=== PATIENT | female | born 1930 | race Caucasian/White ===

== ENCOUNTER 2017-02-13 12:32 | Emergency (ER) | payer OTHER ==
[~2017-02-13] VITALS: Ht 154.9 cm; Wt 87.3 kg
[~2017-02-13 12:32] MED LIST: ALLO100T PO; CHOL100010 PO; FRS/40 PO; LANS30CA41 PO; LOSA50TA54 PO; MULT-190 PO; NVLGI7030 SC; ROSU5TAB PO; SITA50TA3 PO; TPRSR50 PO; Vitamin B PO; WARF5TAB7 PO
[2017-02-13 12:49] VITALS: TEMP 36.7; Ht 154.9 cm; Wt 87.3 kg
[2017-02-13 14:09] LABS: BASO % 0.2 %; BASO ABS # 0.02 K/uL (0-0.2); COMPLETE YES; EOS % 1.3 %; HEMATOCRIT 38.5 % (37-47); IG% 0.3 %; LYMPH % 27.1 %; LYMPH ABS # 2.68 K/uL (1.2-3.4); MEAN CELL VOLUME 100.3 fL (80-100); MEAN CORPUSCULAR HEMOGLOBIN 31.8 pg (25-34); MEAN CORPUSCULAR HGB CONC 31.7 g/dl (32-36); MEAN PLATELET VOLUME 9.6 fL (7.4-10.4); MONO % 7.9 %; NEUT % 63.2 %; PLATELET COUNT 204 K/uL (130-400); RED BLOOD COUNT 3.84 M/uL (4.2-5.4); WHITE BLOOD COUNT 9.89 K/uL (4.8-10.8)
--- NOTE | 2017-02-13 14:10 | DIAGNOSTIC IMAGING REPORT ---
RIGHT TIBIA/FIBULA 2 VIEWS ROUTINE CLINICAL HISTORY: R lower leg pain and swelling Right pain. Edema. COMPARISON: None. DISCUSSION: Considerable degenerative change all major joint compartments of the right knee. Prepatellar soft tissue edema. No acute bony abnormality. Prepatellar soft tissue edema. IMPRESSION: Prepatellar soft tissue edema. Degenerative change right knee. No acute bony abnormality. The above report was generated using voice recognition software. It may contain grammatical, syntax or spelling errors. Electronically signed by: Magen Mathews M.D. 02/13/2017 2:09 PM Dictated Date/Time: 02/13/2017 2:08 PM
[2017-02-13 14:24] LABS: BUN/CREATININE RATIO 20.9 (10-20); CALCIUM 9.4 mg/dl (8.5-10.1); CREATININE 1.3 mg/dl (0.60-1.20); POTASSIUM 3.8 mmol/L (3.5-5.1); URIC ACID 4.2 mg/dl (2.6-7.2)
[2017-02-13 14:29] LABS: INR 2.5 (0.9-1.1); PARTIAL THROMBOPLASTIN RATIO 1.4; PROTHROMBIN TIME (PATIENT) 28.2 SECONDS (9.0-12.0)
[2017-02-13] MEDS ORDERED: CYAN100T PO (14:38)
[2017-02-13] MEDS ORDERED: METO1TAB66 PO (14:38)
[2017-02-13] MEDS ORDERED: CHOL1TAB53 PO (14:38)
--- NOTE | 2017-02-13 15:18 | DIAGNOSTIC IMAGING REPORT ---
RIGHT VENOUS DOPP LOWER EXT UNILAT CLINICAL HISTORY: R lower leg pain and swelling; Hx DVT Right pain. Edema. TECHNIQUE: Venous Doppler COMPARISON STUDY: 01/06/2014 FINDINGS: Linear echogenic thrombus within the right popliteal vein. This is similar compared to the prior study. It is consistent with that of chronic thrombophlebitic change. No evidence for acute deep venous thrombosis. All remaining venous structures are unremarkable. Compressibility and augmentation characteristics are unremarkable. IMPRESSION: 1. 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 2. No evidence for acute deep venous thrombosis. The above report was generated using voice recognition software. It may contain grammatical, syntax or spelling errors. Electronically signed by: Magen Mathews M.D. 02/13/2017 3:17 PM Dictated Date/Time: 02/13/2017 3:15 PM
[2017-02-13] MEDS ORDERED: LOSA1TAB PO (15:40)
[2017-02-13] MEDS ORDERED: CEPH500C2 PO (15:47)
[2017-02-13 15:59] VITALS: BP 173/88; PULSE 70; O2SAT 97
--- NOTE | 2017-02-13 18:05 | EMERGENCY ROOM VISIT NOTE ---
ED Visit Note First contact with patient: 13:27 I have personally seen and evaluated the patient with the PA. I agree with the diagnosis and management decisions and have been personally involved in the case. On evaluation, the patient is found to have a mild cellulitis of the right foot. There is chronic clot visualized on ultrasound. Patient's INR is therapeutic. She was given a prescription for Cozaar 25 mg as she is having difficulty refilling her 50 mg prescription. She was recently increased to 75 mg daily. She will follow-up with her technology assistant as well as her primary care physician for cellulitis recheck and blood pressure management. Patient will return to the ER for worsening of symptoms or any medical concerns. Please see Pedrito Harris PA-C's notes for further details of the history, physical and visit.
--- NOTE | 2017-02-13 22:58 | EMERGENCY ROOM VISIT NOTE ---
ED Visit Note First contact with patient: 13:27 Chief Complaint: Having a lot of swelling of my right lower leg and ankle. History of Present Illness: Ms. Perkins is an 86-year-old white female who ambulates into the ED accompanied by her granddaughter complaining of right lower extremity swelling, redness and pain. 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 She is on Coumadin therapy and she reports her most recent INRs have been normal. Patient reports she has noted right lower leg and foot pain for the last 4 days. This has been associated with swelling of the calf, swelling of the ankle and foot and she has noted some redness in the calf, ankle and foot. Currently she describes her pain as a deep aching sensation with throbbing. She rates her discomfort 8/10. Her pain is nonradiating. Her pain worsens with palpation and ambulation. She has not identified any alleviating factors related to the pain. She reports she has not been taken any medication for pain prior to arrival at the hospital. Additionally she reports she scratched the anterior lower leg on a piece of furniture 4 days ago. She denies any associated fevers, chills, sweats, cough, wheezing, shortness of breath, chest pain, palpitations, cramping, claudication, abdominal pain, nausea , vomiting, decreased appetite, leg weakness/numbness/tingling. Review of Systems: As noted above in history of present illness. All body systems were reviewed and found to be negative as noted above. Past Medical History: As previously noted and (1) Cardiac Murmurs Nec (2) DM type 2 (diabetes mellitus, type 2) (3) Heart murmur (4) Hiatal hernia (5) Renal insufficiency Current Medications: Medications Dose Route/Sig Max Daily Dose Days Date Category Dose Instructions Vitamin B-12 (Cyanocobalamin) 100 Mcg Tab 100 Mcg PO DAILY 02/13/17 Reported D 1000 (Cholecalciferol) 1,000 Unit Tab 4,000 Units PO DAILY 02/13/17 Reported Toprol Xl (Metoprolol Succinate) 50 Mg Tab 50 Mg PO DAILY 02/13/17 Reported Crestor (Rosuvastatin Calcium) 5 Mg Tab 5 Mg PO DAILY 06/09/15 Reported Lasix (Furosemide) 40 Mg Tab 40 Mg PO DAILY 06/09/15 Reported Jantoven (Warfarin Sodium) 5 Mg Tab 5 Mg PO DAILY 01/09/14 Rx Ocuvite Preservision (Multivitamins/Minerals) 1 Tab Tab 1 Tab PO DAILY 09/13/13 Reported Novolog Mix 70/30 (Insulin Aspart Prota 70%/Aspart 30%) Susp 40 Units SC QPM 09/13/13 Reported Novolog Mix 70/30 (Insulin Aspart Prota 70%/Aspart 30%) Susp 46 Units SC QAM 09/13/13 Reported Zyloprim (Allopurinol) 100 Mg Tab 100 Mg PO BID 09/13/13 Reported Prevacid (Lansoprazole) 30 Mg Cap 30 Mg PO DAILY 09/13/13 Reported TAKE THIS MEDICATION ONCE A DAY BEFORE EATING. Cozaar (Losartan Potassium) 50 Mg Tab 75 Mg PO DAILY 09/13/13 Reported Januvia (Sitagliptin) 50 Mg Tab 50 Mg PO DAILY 09/13/13 Reported Allergies to Medications: Hydrocodone, penicillin, vancomycin. Social History: Patient is not employed; she feels safe in her home environment ; she denies tobacco use. Physical Examination: Vital Signs: Date Time Temp Pulse Resp B/P (MAP) Pulse Ox O2 Delivery O2 Flow Rate FiO2 02/13/17 15:59 70 18 173/88 97 02/13/17 13:50 163/100 02/13/17 12:49 36.7 69 18 162/78 95 Room Air GENERAL: 86-year-old female in mild distress due to pain and symptoms, nontoxic- appearing, afebrile and hemodynamically stable. NEUROLOGICAL: Awake, alert and oriented to person, place and time. Answering questions appropriately and following commands. SKIN: Warm, dry and pink. Right Lower Leg: Patient has a superficial skin tear/ abrasion/laceration to the anterior aspect of the leg extending from just inferior to the tibial tuberosity to the lower tibia. This wound is scabbed over and does not appear infected. There are additional venous stasis changes noted over the lower leg. Within the venous stasis changes there is mild erythema at this area is not hot to palpation. Lastly there is swelling around the ankle with mild erythema just inferior to the bilateral malleoli. This area is slightly warm to palpation. There is also swelling over the top of the foot that is not erythematous or warm to palpation. None of the above listed areas does the skin appear cellulitic and nowhere through the right lower extremity door appreciate any lymphangitis. HEENT: Atraumatic and normocephalic. PERRLA. Sclera white and conjunctiva pink. No drainage from naris. Oral cavity moist and pink. Pharynx is nonerythematous or edematous. Speech normal. Trachea midline. No jugular venous distention. BACK: No tenderness over the bony spine. No CVA tenderness. THORAX: Lungs sounds are clear to auscultation and equal bilaterally with symmetrical chest wall. No wheezing, rales or rhonchi. No crepitus, tenderness , subcutaneous air or deformities noted. HEART: Regular rate and rhythm. No gallops, rubs or murmurs are appreciated. ABDOMEN: Flat, soft and nontender. Positive bowel sounds in all quadrants. No guarding, rigidity or organomegaly. RIGHT LOWER EXTREMITY: Please note skin description above under SKIN. There is no gross bony deformity. There is no shortening or malrotation of the extremity. No tenderness in the hip, thigh, knee. Moderate tenderness throughout the lower leg, ankle and foot. I do not appreciate any bony deformity or crepitus. There is no calf tenderness or cords. She has full range of motion in flexion and extension of the knee, plantar flexion and dorsiflexion of the ankle and flexion and extension of all toes. Throughout the foot the skin was warm and pink and capillary refill is brisk. Distal pulses are intact. She is able to distinguish light sensations through all dermatomes of the foot. ED Course: Patient is assessed as noted above. Patient's medication list was reviewed. Laboratory Testing: Test 02/13/17 13:50 Range/Units White Blood Count 9.89 4.8-10.8 K/uL Red Blood Count 3.84 4.2-5.4 M/uL Hemoglobin 12.2 12.0-16.0 g/dL Hematocrit 38.5 37-47 % Mean Corpuscular Volume 100.3 80-100 fL Mean Corpuscular Hemoglobin 31.8 25-34 pg Mean Corpuscular Hemoglobin Concent 31.7 32-36 g/dl Platelet Count 204 130-400 K/uL Mean Platelet Volume 9.6 7.4-10.4 fL Neutrophils (%) (Auto) 63.2 % Lymphocytes (%) (Auto) 27.1 % Monocytes (%) (Auto) 7.9 % Eosinophils (%) (Auto) 1.3 % Basophils (%) (Auto) 0.2 % Neutrophils # (Auto) 6.25 1.4-6.5 K/uL Lymphocytes # (Auto) 2.68 1.2-3.4 K/uL Monocytes # (Auto) 0.78 0.11-0.59 K/uL Eosinophils # (Auto) 0.13 0-0.5 K/uL Basophils # (Auto) 0.02 0-0.2 K/uL RDW Standard Deviation 51.0 36.4-46.3 fL RDW Coefficient of Variation 14.0 11.5-14.5 % Immature Granulocyte % (Auto) 0.3 % Immature Granulocyte # (Auto) 0.03 0.00-0.02 K/uL Prothrombin Time 28.2 9.0-12.0 SECONDS Prothromb Time International Ratio 2.5 0.9-1.1 Activated Partial Thromboplast Time 36.6 21.0-31.0 SECONDS Partial Thromboplastin Ratio 1.4 Sodium Level 139 136-145 mmol/L Potassium Level 3.8 3.5-5.1 mmol/L Chloride Level 103 98-107 mmol/L Carbon Dioxide Level 30 21-32 mmol/L Anion Gap 6.0 3-11 mmol/L Blood Urea Nitrogen 27 7-18 mg/dl Creatinine 1.30 0.60-1.20 mg/dl Est Creatinine Clear Calc Drug Dose 32.3 ml/min Estimated GFR () 43.6 Estimated GFR (Non- 37.6 BUN/Creatinine Ratio 20.9 10-20 Random Glucose 123 70-99 mg/dl Uric Acid 4.2 2.6-7.2 mg/dl Calcium Level 9.4 8.5-10.1 mg/dl Right Lower Leg X-Rays: Were read by myself and the radiologist and shows degenerative changes to all the major components of the the knee but no acute bony abnormalities. Radiologist also noted prepatellar soft tissue edema. Venous Doppler Ultrasound: Was reviewed by myself and read by the radiologist and shows chronic thrombophlebitic scarring of the right popliteal vein and no evidence of acute deep venous thrombus. An IV lock was initiated and patient was offered pain medications and refused. Patient was reassessed multiple times during her stay in the emergency department. Patient's case was reviewed with Dr. Abraham; she independently assessed the patient we agreed on diagnostic approach, treatment, disposition and plan. Patient was offered a walker and reported she had walker at home. Patient was educated about today's findings and instructed on her treatment plan ; she verbalized understanding and agreement with this plan. Clinical Impression: Mild cellulitis of the right lower leg/foot. Decision-Making: Initially my differential diagnosis I considered cellulitis, deep vein thrombus, superficial thrombophlebitis, gout and other causes. Disposition: Patient discharged home in stable condition accompanied by her grand daughter; prior to departure she was reassessed and subjectively reported she was feeling better and rated her discomfort 3/10. Plan: Patient was encouraged to continue current medication as prescribed including her changes in blood pressure medication. Patient was prescribed Keflex 500 mg 4 times a day for 7 days. Patient is encouraged to keep her feet elevated while at rest. Patient was encouraged to use 650 mg of acetaminophen every 6 hours as needed for pain. Patient was encouraged to use her walker for support during ambulation. Patient was encouraged to follow-up with the network intelligence analyst or family physician for recheck in 36-48 hours. Patient was encouraged return ED for worsening swelling, worsening redness, fevers or any new/concerning symptoms.
== END 2017-02-13 16:01 | disposition home or self-care (01) ==
LOC: C.EDB 12:34
DX: L03.115 Cellulitis of right lower limb (principal); E11.9 Type 2 diabetes mellitus without complications

== ENCOUNTER 2017-04-04 03:01 | Emergency (ER) | payer OTHER ==
[~2017-04-04] VITALS: Ht 154.9 cm; Wt 86.9 kg
[~2017-04-04 03:01] MED LIST changes: -CHOL100010 PO; +CHOL1TAB53 PO; +CYAN100T PO; +LOSA1TAB PO; +METO-452 PO; -TPRSR50 PO; -Vitamin B PO
[2017-04-04 03:06] VITALS: TEMP 37; Ht 154.9 cm; Wt 86.9 kg
[2017-04-04 03:56] LABS: BASO % 0.3 %; BASO ABS # 0.03 K/uL (0-0.2); COMPLETE YES; EOS % 2.4 %; HEMATOCRIT 37.1 % (37-47); IG% 0.2 %; LYMPH % 26.4 %; LYMPH ABS # 2.34 K/uL (1.2-3.4); MEAN CELL VOLUME 99.2 fL (80-100); MEAN CORPUSCULAR HEMOGLOBIN 32.6 pg (25-34); MEAN CORPUSCULAR HGB CONC 32.9 g/dl (32-36); MEAN PLATELET VOLUME 9.6 fL (7.4-10.4); MONO % 11.7 %; PLATELET COUNT 175 K/uL (130-400); RED BLOOD COUNT 3.74 M/uL (4.2-5.4); WHITE BLOOD COUNT 8.87 K/uL (4.8-10.8)
[2017-04-04 04:31] LABS: ALT/SGPT 23 U/L (12-78); BLOOD UREA NITROGEN 35 mg/dl (7-18); BUN/CREATININE RATIO 27.2 (10-20); CALCIUM 9.3 mg/dl (8.5-10.1); CARBON DIOXIDE 25 mmol/L (21-32); CHLORIDE 107 mmol/L (98-107); CREATININE 1.27 mg/dl (0.60-1.20); GLUCOSE 148 mg/dl (70-99); POTASSIUM 3.9 mmol/L (3.5-5.1); SODIUM 141 mmol/L (136-145)
[2017-04-04 04:34] LABS: ALKALINE PHOSPHATASE 64 U/L (45-117); AST/SGOT 24 U/L (15-37)
[2017-04-04 04:50] VITALS: BP 177/93; PULSE 78; O2SAT 95
--- NOTE | 2017-04-04 05:17 | EMERGENCY ROOM VISIT NOTE ---
History Report prepared by [place]: Kayla Montero Under the Supervision of: Dr. Sonali Dong D.O. First contact with patient: 03:15 Chief Complaint: ABDOMINAL PAIN Stated Complaint: PAIN IN STOMACH History of Present Illness The patient is an 86 year old female who presents to the Emergency Room with complaints of intermittent abdominal pain starting 0200 last night. She describes the pain as burning "like fire". It is located in her upper abdomen. Yesterday she was up from [id number] with the pain which then resolved. The pain started again this morning at around 0050. She had been sleeping for about an hour and woke with the pain. She currently does not have any pain. It improved after drinking water. She notes a history of acid reflux and is on Prevacid 30 mg once a day. She had an omelette and toast at 1130 today. At 1800, she had toast with peanut butter and coconut cream pie. She only drank water after that. She has recently had burning in her vagina for which she was given Diflucan. She states she is still having burning. She had cellulitis in her toes 1 month ago for which was on antibiotics. She finished the antibiotics 2 weeks ago. She has an IVC filter for a history of DVT. She has a lump in her abdomen which she was told was just fat. She does not have any pain there. She has a history of ulcers and diabetes. She is on insulin. She is taking her medications as directed. She denies any alcohol use or smoking. Source of History: patient Onset: 0200 yesterday Position: abdomen Quality: burning Timing: intermittent Modifying Factors (Relieving): drinking Note: Pt reports vaginal burning. Review of Systems See HPI for pertinent positives & negatives. A total of 10 systems reviewed and were otherwise negative. Past Medical & Surgical Medical Problems: (1) Cardiac Murmurs Nec (2) DM type 2 (diabetes mellitus, type 2) (3) Heart murmur (4) Hiatal hernia (5) Hypertension (6) Renal insufficiency Family History Cancer Diabetes mellitus Heart disease Hypertension Lung disease Social History Smoking Status: Never Smoker Alcohol Use: none Drug Use: none Marital Status: Housing Status: lives alone Occupation Status: retired Current/Historical Medications Scheduled Allopurinol (Zyloprim), 100 MG PO BID Cholecalciferol (D 1000), 4,000 UNITS PO DAILY Cyanocobalamin (Vitamin B-12), 100 MCG PO DAILY Furosemide (Lasix), 40 MG PO DAILY Insulin Aspart 70/30 (Novolog Mix 70/30), 46 UNITS SC QAM Insulin Aspart 70/30 (Novolog Mix 70/30), 40 UNITS SC QPM Lansoprazole (Prevacid), 30 MG PO DAILY Losartan Potassium (Cozaar), 75 MG PO DAILY Metoprolol Succinate (Toprol Xl), 50 MG PO DAILY Ocuvite Preservision (Ocuvite Preservision), 1 TAB PO DAILY Rosuvastatin Calcium (Crestor), 5 MG PO DAILY Sitagliptin (Januvia), 50 MG PO DAILY Warfarin Sod (Jantoven), 5 MG PO DAILY Allergies Coded Allergies: Hydrocodone (Verified Allergy, Unknown, ., 04/04/17) Penicillins (Verified Allergy, Unknown, ., 04/04/17) Vancomycin (Unverified Adverse Reaction, Intermediate, rash on head, 04/04) Physical Exam Vital Signs Date Time Temp Pulse Resp B/P (MAP) Pulse Ox O2 Delivery O2 Flow Rate FiO2 04/04/17 04:50 78 20 177/93 95 Room Air 04/04/17 04:35 78 20 205/92 95 04/04/17 03:06 37.0 73 20 210/94 96 Room Air Physical Exam HEENT: Head - normocephalic and atraumatic Pupils are equal, round, and reactive to light. Extraocular eye muscles are intact, and sclera are anicteric. Nose - moist nasal mucosa without discharge. Mouth - moist buccal mucosa. Oropharynx is nonerythematous and there is no tonsillar exudate or edema noted. Neck: Supple; no JVD, nuchal rigidity, cervical lymphadenopathy. Heart: Regular rate and rhythm. There is a normal S1 and S2 with no murmurs, clicks, or gallops appreciated. Lungs: Clear to auscultation bilaterally with no wheezes, rales, or rhonchi. Abdomen: Soft, completely nontender, nondistended, with good bowel sounds. There are no palpable pulsatile masses or hepatosplenomegaly. There is no guarding, rigidity, or rebound noted. There is what appears to be a lipoma in the LUQ of the abdomen which is freely mobile and nontender to touch. Extremities: No evidence of cyanosis, clubbing, or edema. There are easily palpable peripheral pulses. Lower extremities with some areas of healing cellulitis. Skin: warm and dry with good turgor and no rashes. Medical Decision & Procedures Laboratory Results 04/04/17 03:45 Red Blood Count 3.74, Mean Corpuscular Volume 99.2, Mean Corpuscular Hemoglobin 32.6, Mean Corpuscular Hemoglobin Concent 32.9, Mean Platelet Volume 9.6, Neutrophils (%) (Auto) 59.0, Lymphocytes (%) (Auto) 26.4, Monocytes (%) (Auto) 11.7, Eosinophils (%) (Auto) 2.4, Basophils (%) (Auto) 0.3, Neutrophils # (Auto ) 5.23, Lymphocytes # (Auto) 2.34, Monocytes # (Auto) 1.04, Eosinophils # (Auto ) 0.21, Basophils # (Auto) 0.03 04/04/17 03:45 Test 04/04/17 03:45 White Blood Count 8.87 K/uL (4.8-10.8) Red Blood Count 3.74 M/uL (4.2-5.4) Hemoglobin 12.2 g/dL (12.0-16.0) Hematocrit 37.1 % (37-47) Mean Corpuscular Volume 99.2 fL (80-100) Mean Corpuscular Hemoglobin 32.6 pg (25-34) Mean Corpuscular Hemoglobin Concent 32.9 g/dl (32-36) Platelet Count 175 K/uL (130-400) Mean Platelet Volume 9.6 fL (7.4-10.4) Neutrophils (%) (Auto) 59.0 % Lymphocytes (%) (Auto) 26.4 % Monocytes (%) (Auto) 11.7 % Eosinophils (%) (Auto) 2.4 % Basophils (%) (Auto) 0.3 % Neutrophils # (Auto) 5.23 K/uL (1.4-6.5) Lymphocytes # (Auto) 2.34 K/uL (1.2-3.4) Monocytes # (Auto) 1.04 K/uL (0.11-0.59) Eosinophils # (Auto) 0.21 K/uL (0-0.5) Basophils # (Auto) 0.03 K/uL (0-0.2) RDW Standard Deviation 49.3 fL (36.4-46.3) RDW Coefficient of Variation 13.7 % (11.5-14.5) Immature Granulocyte % (Auto) 0.2 % Immature Granulocyte # (Auto) 0.02 K/uL (0.00-0.02) Anion Gap 10.0 mmol/L (3-11) Est Creatinine Clear Calc Drug Dose 33.0 ml/min Estimated GFR () 44.9 Estimated GFR (Non- 38.7 BUN/Creatinine Ratio 27.2 (10-20) Calcium Level 9.3 mg/dl (8.5-10.1) Total Bilirubin 0.2 mg/dl (0.2-1) Direct Bilirubin < 0.1 mg/dl (0-0.2) Aspartate Amino Transf (AST/SGOT) 24 U/L (15-37) Alanine Aminotransferase (ALT/SGPT) 23 U/L (12-78) Alkaline Phosphatase 64 U/L (45-117) Total Protein 7.7 gm/dl (6.4-8.2) Albumin 3.6 gm/dl (3.4-5.0) Lipase 438 U/L (73-393) Laboratory results per my review. ECG Indication: abdominal pain Rate (beats per minute): 76 Rhythm: normal sinus Findings: 1st degree AV block, ST depression (Inferior, Anterior) Comparison ECG Date: 09-Jun-2015 Change: no significant change ED Course 0324: Past medical records reviewed. The patient was evaluated in room B10. A complete history and physical exam was performed. Laboratory studies were drawn as above. 0445: I reevaluated the patient. She is symptom free. I updated her on the results. 0502: I reevaluated the patient. She is still symptom free. She will follow up with her shopper insights manager about her blood pressure. I discussed findings and results with her. She verbalized agreement of the treatment plan. She was discharged home. Medical Decision The patient is an 86 year old female who presents to the ED with abdominal pain. Differential diagnosis includes cardiac ischemia, GERD, ulcerative disease , colitis, esophagitis, gallbladder disease. Labs: no leukocytosis, stable H&H, BUN 35, creatinine 1.2 which is a baseline creatinine for her, glucose 148, LFTs are normal and lipase is slightly elevated at 438. The patient had no recurrent symptoms while here in the emergency department. The symptoms sounded like gastroesophageal reflux disease. The patient drank a glass of water at home which relieved her symptoms immediately. She does take a PPI routinely but does not eat regular meals. I've asked patient to a 4 small meals. If she develops a burning sensation in her epigastrium, she was instructed to use Mylanta. I've asked the patient to follow-up with her PCP with regards to her blood pressure and the GERD if her symptoms persist. If Symptoms worsen, she was directed return to the ER. Medication Reconcilliation Current Medication List: was personally reviewed by me Blood Pressure Screening Patient's blood pressure: Elevated blood pressure Blood pressure disposition: Referred to PCP Impression Primary Impression: GERD (gastroesophageal reflux disease) Additional Impressions: Epigastric pain Hypertension Scribe Attestation The scribe's documentation has been prepared under my direction and personally reviewed by me in its entirety. I confirm that the note above accurately reflects all work, treatment, procedures, and medical decision making performed by me. Departure Information Dispostion Home / Self-Care Referrals Dominique Montiel D.O. (PCP) Forms HOME CARE DOCUMENTATION FORM, IMPORTANT VISIT INFORMATION Patient Instructions ED Dizziness [facility], Hypertension Control, [facility] Additional Instructions Rest. Watch your BP closely. Follow up with Dr. Matos. Take a bland diet - 4 small meals a day. If epigastric burning starts, you may use maalox. Follow up with PCP about GERD Problem Qualifiers Primary Impression: GERD (gastroesophageal reflux disease) Esophagitis presence: without esophagitis Qualified Codes: K21.9 - Gastro- esophageal reflux disease without esophagitis Additional Impressions: Hypertension Hypertension type: unspecified Qualified Codes: I10 - Essential (primary) hypertension
== END 2017-04-04 05:18 | disposition home or self-care (01) ==
LOC: C.EDB 03:02
DX: K21.9 Gastro-esophageal reflux disease without esophagitis (principal); I10 Essential (primary) hypertension; E11.9 Type 2 diabetes mellitus without complications; Z79.4 Long term (current) use of insulin; Z79.84 Long term (current) use of oral hypoglycemic drugs; Z79.01 Long term (current) use of anticoagulants; Z86.718 Personal history of other venous thrombosis and embolism; Z83.3 Family history of diabetes mellitus; Z82.49 Family history of ischemic heart disease and other diseases of the circulatory system

== ENCOUNTER 2018-08-08 01:30 | Inpatient (IN) ==
[2018-08-08] MEDS ORDERED: SODIUM CHLORIDE 0.9% 1000ML 500 ML IV ONE (01:41)
[2018-08-08 01:53] LABS: Basophils # (auto) 0.02 K/uL (0-0.2); Basophils % (auto) 0.2 %; Eosinophils # (auto) 0.11 K/uL (0-0.5); Eosinophils % (auto) 1.1 %; Hemoglobin 12.1 g/dL (12.0-16.0); Immature Granulocytes # (auto) 0.03 K/uL (0.00-0.02); Immature Granulocytes % (auto) 0.3 %; Lymphocytes # (auto) 2.56 K/uL (1.2-3.4); Lymphocytes % (auto) 26.4 %; Mean Corpuscular Hgb Conc 32.7 g/dL (32-36); Mean Corpuscular Volume 100.5 fL (80-100); Mean Platelet Volume 9.7 fL (7.4-10.4); Monocytes # (auto) 0.77 K/uL (0.11-0.59); Neutrophils # (auto) 6.19 K/uL (1.4-6.5); Platelet Count 204 K/uL (130-400); RDW Coefficient of Variation 13.8 % (11.5-14.5); RDW Standard Deviation 49.9 fL (36.4-46.3); Red Blood Count 3.68 M/uL (4.2-5.4); White Blood Count 9.68 K/uL (4.8-10.8)
[2018-08-08 02:01] LABS: BUN Creatinine Ratio 21.3 (10-20); Blood Urea Nitrogen 36 mg/dl (7-18); Calcium 9.1 mg/dl (8.5-10.1); Carbon Dioxide 26 mmol/L (21-32); Chloride 104 mmol/L (98-107); Creatinine Clr Calc Pharmacy 24.2 ml/min; Est GFR (African American) 30.9; Est GFR (Non-African American) 26.6; Glucose 264 mg/dl (70-99); Magnesium 1.6 mg/dl (1.8-2.4); Potassium 4.1 mmol/L (3.5-5.1); Sodium 139 mmol/L (136-145)
[2018-08-08 02:08] LABS: INR 2.3 (0.9-1.1); Prothrombin Time 22.1 Seconds (9.0-12.0)
[2018-08-08 02:12] LABS: NT Pro B Type Natriuretic Pept 244 pg/ml (0-1800); Troponin I < 0.015 ng/ml (0-0.045)
[2018-08-08] MEDS ORDERED: MAGNESIUM SULFATE / D5W 1 GM/100 ML BAG IV ONE (02:40)
[2018-08-08] MEDS ORDERED: LABETALOL HCL IV 5 MG/ML 20ML IV STA ×2 (02:40→03:26)
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
[2018-08-08] MEDS ORDERED: LABETALOL HCL IV 5 MG/ML 20ML IV PRN (04:23)
[2018-08-08] MEDS ORDERED: CARBOHYDRATES FOR HYPOGLYCEMIA PO PRN (04:45)
[2018-08-08] MEDS ORDERED: GLUCOSE 40% GEL 15 GM TUBE PO PRN (04:45)
[2018-08-08] MEDS ORDERED: DEXTROSE 50% 50 ML SYRINGE IV PRN (04:45)
[2018-08-08] MEDS ORDERED: GLUCAGON FOR INJ 1 MG VIAL IM PRN (04:45)
[2018-08-08] MEDS ORDERED: GLUCOSE 10 TABS/TUBE PO PRN (04:45)
[2018-08-08 05:22] LABS: Appearance Urine Clear (Clear); Bacteria Urine Automated Negative (Negative); Bilirubin Urine Negative (Negative); Blood Urine 1+ (Negative); Color Urine Yellow; Epithelial Cell Urine Auto >30 /lpf (0-5); Glucose Urine UA 3+ (Negative); Ketones Urine Negative (Negative); Leukocyte Esterase Urine Negative (Negative); Nitrite Urine Negative (Negative); Protein Urine 2+ (Negative); RBC Urine Automated 0-4 /hpf (0-4); Specific Gravity Urine 1.017 (1.000-1.030); Urobilinogen Urine Negative (Negative); pH Urine 5.5 (4.5-7.5)
--- NOTE | 2018-08-08 05:30 | Emergency Department Note ---
Entered by Chirag Sheffield acting as a scribe for ED Provider Note Name: Suni Maddox Age: 88 Arrives Via: Ambulance Informant: Patient and EMS CC: Tachycardia HPI: The patient is a 88 year old female who presents to the Emergency Room via EMS with complaints of intermittent episodes of tachycardia that started tonight. En route her heart rate ranged from 50-110 and she received 324mg of Aspirin. Her daughter also states that over the past 2-3 weeks she has had worsening shortness of breath. Currently she has no chest pains but earlier today she had chest discomfort but was not sure if it was actual chest pain or gas. She also currently denies any loss of consciousness, abdominal pain, leg swelling, fevers or rhinorrhea. The patient has been eating fine but tonight she did not eat much for supper so her sugar did drop a little. Two weeks ago she was here for a headache and right sided weakness. She has not had any recent changes in medications and she is on Coumadin for her history of a blood clot she had in her leg. She also has a history of surgery on her chest left for breast cancer. ROS: See above HPI for pertinent positives & negatives. A total of 10 systems reviewed and were otherwise negative. Past Medical History: Heart murmur, DVT, Diabetes, HTN, Reflux, see chart for complete list Past Surgical History: Denies Family History: Family history non-contributory Social History: Never smoker, lives at home, retired, denies drug/etoh use Home Medications: Cefdinir, Lasix, Allopurinol, Insulin, Losartan, Metoprolol, Coumadin, see chart for complete list. Allergies Hydrocodone, Penicillins, Vancomycin Physical: Vitals: BP: 203/103, MD: 97, RR: 22, Temp: 99F, O2 Sat: 99 on RA Exam: GENERAL: Patient is tired appearing and in no acute distress. EYES: No scleral icterus, unremarkable pupils. ENT: Mucous membranes moist, no nasal congestion. NECK: No masses appreciated, no meningismus, trachea is midline. RESPIRATORY: No dyspnea. Crackles in all lung ackerman. No wheeze, no rhonchi. CARDIOVASCULAR: Mildly tachycardic rate and regular rhythm. Systolic murmur noted. No rubs or gallops appreciated. GASTROINTESTINAL: Abdomen soft, non-tender, no peritonitis. Bowel sounds positive. No masses appreciated. BACK: No midline tenderness, no CVA tenderness EXTREMITIES: Normal motion all extremities, no cyanosis, no edema. NEUROLOGIC: Alert and oriented, no acute motor or sensory deficits, no focal weakness, cranial nerves grossly intact. SKIN: No rash, no jaundice, no diaphoresis. ED Course: Prior Medical Record, Triage/Nursing Notes, Medications, Allergies reviewed by Me Vital Signs: reviewed and remarkable for HTN, Mild Tachy Labs: Reviewed and remarkable for HypoMagnesemia Interventions: Saline Lock, Labetalol 10mg IV x 2, Magnesium 1 G IV Imaging: X ray results are stated below per my interpretation: Chest: 1 view: Poor inspiratory effort, No infiltrate, no effusion, normal cardiac border. EK:36 Sinus tachycardia rate of 103 with a 1st degree AV block, RBBB, no ectopy, and lateral ST depression Repeat: 01:59 Rate 101, otherwise unchanged Consults: Dr Grey Reassessments/Times: 0132: Past medical records reviewed. The patient was evaluated in room C11B, and a complete history and physical examination were performed. 0158: The patient has no further complaints. 0240: I reevaluated the patient and she is not complaining of any further symptoms. Her heart rate is in the upper 90s. After discussion, she is agreeable to stay for further evaluation. Blood pressure: Elevated - Referred to Hospitalist Disposition: Hospitalization Differentials: NSR, SVT, PACs, PVCs, Cardiac Dysrhythmia, Endocrine Dysfunction, Eletrolyte/Metabolic Abnormality, Pulmonary Embolism, Infectious, GI, amonst other pathologies entertained. Medical Decision Making: Pleasant 88 yr old female with palpitations and chest pressure this evening for which EMS contacted. She was given ASA en route and is now symptom free. EMS note bradycardia during trip here with episodes of tachy. Could be she is having some sort of tachy-anitha syndrome but while here no evidence of b radycardia. EKG here with mild ST and 1st AV block. CXR without infiltrate and I suspect mild congestive look is actually hypoinflation from poor inspiration. With therapeautic INR I do not feel that PE is likely. She does not appear to have any cear infectious findings. Noted to by hypoMg for which 1 G was ordered. She was quite hypertensive thus Labetalol IV used with good effect. Impression: Substernal Chest Pain Hypertensive Urgency Intermittent Palpitations Joce Billy MD The scribe's documentation has been prepared under my direction and personally reviewed by me in its entirety. I confirm that the note above accurately reflects all work, treatment, procedures, and medical decision making performed by me. Impression & Plan Substernal chest pain, Hypertensive urgency, Intermittent palpitations Past Med/Surg History Social History Preferred Language: Sami Communication Ability: Effective Datawarehouse Developer Required: No Beliefs That Will Affect Care: None Current Living Situation: Alone Other Information That Helps Us Care for You: No Feels Safe at Home: Yes Safety Concerns: Feels Safe At This Time Smoking Status: Never smoker Hx Alcohol Use: No Hx Substance Use: No Results & Data Vital Signs Vital Signs - 24 hr 08/08/18 01:36 08/08/18 01:50 08/08/18 02:31 Temperature 37.2 C Temperature Source Oral Sepsis Recent Fever Within 48 Hours No Sepsis New/Unexplained Change in Mental Status No Sepsis Action Taken by Nursing No Action Required Pulse Rate 102 H Pulse Rate [Apical] 97 H 99 H Pulse Rate from SpO2 Sensor Pulse Rhythm Irregular Respiratory Rate 20 22 Respiratory Effort / Characteristics Non-Labored Spontaneous Short of Breath Respiratory Depth Normal Normal Respiratory Pattern Regular Regular Blood Pressure 211/95 H Blood Pressure [Right Arm] 203/103 H 205/133 H Blood Pressure Mean 133 Blood Pressure Mean [Right Arm] 136 157 Blood Pressure Position Semi-fowlers Blood Pressure Position [Right Arm] Semi-fowlers Semi-fowlers Pulse Oximetry 98 99 97 Oxygen Delivery Method Room Air Room Air Room Air 08/08/18 02:32 08/08/18 02:35 08/08/18 03:01 Temperature Temperature Source Sepsis Recent Fever Within 48 Hours Sepsis New/Unexplained Change in Mental Status Sepsis Action Taken by Nursing Pulse Rate 99 H 99 H 101 H Pulse Rate [Apical] Pulse Rate from SpO2 Sensor 100 H 101 H 105 H Pulse Rhythm Respiratory Rate 19 19 20 Respiratory Effort / Characteristics Respiratory Depth Respiratory Pattern Blood Pressure 205/133 H 196/98 H 185/100 H Blood Pressure [Right Arm] Blood Pressure Mean 157 130 128 Blood Pressure Mean [Right Arm] Blood Pressure Position Blood Pressure Position [Right Arm] Pulse Oximetry 95 98 95 Oxygen Delivery Method 08/08/18 03:02 08/08/18 03:30 08/08/18 03:39 Temperature Temperature Source Sepsis Recent Fever Within 48 Hours Sepsis New/Unexplained Change in Mental Status Sepsis Action Taken by Nursing Pulse Rate 99 H 103 H 102 H Pulse Rate [Apical] Pulse Rate from SpO2 Sensor 100 H 104 H 102 H Pulse Rhythm Respiratory Rate 20 18 17 Respiratory Effort / Characteristics Respiratory Depth Respiratory Pattern Blood Pressure 207/91 H 174/90 H Blood Pressure [Right Arm] Blood Pressure Mean 129 118 Blood Pressure Mean [Right Arm] Blood Pressure Position Blood Pressure Position [Right Arm] Pulse Oximetry 97 96 96 Oxygen Delivery Method 08/08/18 03:54 08/08/18 04:23 08/08/18 04:50 Temperature 36.7 C Temperature Source Oral Sepsis Recent Fever Within 48 Hours Sepsis New/Unexplained Change in Mental Status Sepsis Action Taken by Nursing Pulse Rate 102 H Pulse Rate [Apical] 105 H 102 H Pulse Rate from SpO2 Sensor Pulse Rhythm Respiratory Rate 17 22 Respiratory Effort / Characteristics Non-Labored Spontaneous Respiratory Depth Normal Respiratory Pattern Regular Blood Pressure 174/90 H Blood Pressure [Right Arm] 204/100 H 160/78 H Blood Pressure Mean Blood Pressure Mean [Right Arm] 134 105 Blood Pressure Position Blood Pressure Position [Right Arm] Sitting Pulse Oximetry 96 97 Oxygen Delivery Method Room Air Room Air Laboratory Data Result diagrams: 08/08/18 01:40 08/08/18 01:40 Lab Results 08/08/18 08/08/18 08/08/18 Range/Units 01:40 01:40 01:40 WBC 9.68 (4.8-10.8) K/uL RBC 3.68 L (4.2-5.4) M/uL Hgb 12.1 (12.0-16.0) g/dL Hct 37.0 (37-47) % MCV 100.5 H (80-100) fL MCH 32.9 (25-34) pg MCHC 32.7 (32-36) g/dL RDW Std Deviation 49.9 H (36.4-46.3) fL RDW Coeff of Anupam 13.8 (11.5-14.5) % Plt Count 204 (130-400) K/uL MPV 9.7 (7.4-10.4) fL Immature Gran % (Auto) 0.3 % Neut % (Auto) 64.0 % Lymph % (Auto) 26.4 % [place] % (Auto) 8.0 % Eos % (Auto) 1.1 % Baso % (Auto) 0.2 % Immature Gran # (Auto) 0.03 H (0.00-0.02) K/uL Neut # (Auto) 6.19 (1.4-6.5) K/uL Lymph # (Auto) 2.56 (1.2-3.4) K/uL [place] # (Auto) 0.77 H (0.11-0.59) K/uL Eos # (Auto) 0.11 (0-0.5) K/uL Baso # (Auto) 0.02 (0-0.2) K/uL PT 22.1 H (9.0-12.0) Seconds INR 2.3 H (0.9-1.1) Sodium 139 (136-145) mmol/L Potassium 4.1 (3.5-5.1) mmol/L Chloride 104 (98-107) mmol/L Carbon Dioxide 26 (21-32) mmol/L Anion Gap 9.0 (3-11) BUN 36 H (7-18) mg/dl Creatinine 1.71 H (0.6-1.2) mg/dl Est Cr Clr Drug Dosing 24.2 ml/min Est GFR ( Amer) 30.9 Est GFR (Non-Af Amer) 26.6 BUN/Creatinine Ratio 21.3 H (10-20) Glucose 264 H (70-99) mg/dl Calcium 9.1 (8.5-10.1) mg/dl Magnesium 1.6 L (1.8-2.4) mg/dl Troponin I < 0.015 (0-0.045) ng/ml NT-Pro-B Natriuret Pep 244 (0-1800) pg/ml TSH 4.320 (0.300-4.500) uIu/ml Administered Medications Discontinued Medications Sodium Chloride (Nss 1000ml) 500 mls @ 999 mls/hr IV .Q31M ONE Stop: 08/08/18 02:11 Last Infusion: 08/08/18 02:30 Dose: 0 mls/hr Documented by: [id number] Admin: 08/08/18 01:49 Dose: 999 mls/hr Documented by: [id number] Magnesium Sulfate/Dextrose (Magnesium Sulfate / D5w) 1 gm in 100 mls @ 100 mls/hr IV ONE ONE Stop: 08/08/18 03:39 Last Infusion: 08/08/18 03:55 Dose: 0 mls/hr Documented by: [id number] Admin: 08/08/18 02:47 Dose: 100 mls/hr Documented by: [id number] Labetalol HCl (Normodyne) 10 mg IV NOW STA Stop: 08/08/18 02:41 Last Admin: 08/08/18 02:48 Dose: 10 mg Documented by: [id number] Cosigned by: [id number] Labetalol HCl (Normodyne) 10 mg IV NOW STA Stop: 08/08/18 03:27 Last Admin: 08/08/18 03:32 Dose: 10 mg Documented by: [id number] Cosigned by: [id number] Discharge Plan Visit Data *Final* Discharge Date/Time: 08/08/18 03:54 Chief Complaint: Tachycardia ED Provider: Joce Billy Discharge Problem: Substernal chest pain, Hypertensive urgency, Intermittent palpitations Patient Disposition: Admitted As Inpatient Discharge Instructions Interventions: ED Discharge Assessment Last Done: 08/08/18 03:54 The scribe's documentation has been prepared under my direction and personally reviewed by me in its entirety. I confirm that the note above accurately reflects all work, treatment, procedures, and medical decision making performed by me.
[2018-08-08] MEDS: NITROGLYCERIN 2% OINTMENT 30GM TUBE EXT SCH ×3 (06:39→17:38)
--- NOTE | 2018-08-08 07:15 | XRay Report ---
XR chest 1V portable HISTORY: Short of breath. Palpitations. COMPARISON: Chest 07/20/2018. FINDINGS: No focal lung consolidations to suggest pneumonia. The heart is mildly enlarged. No pleural effusions. No pneumothorax. Mild interstitial thickening at the lung bases. IMPRESSION: Mild interstitial thickening at the lung bases. This could be due to mild dependent change or develop ing congestive change. Stable mild cardiomegaly. Electronically signed by: Charles Chavez M.D. 08/08/2018 7:14 AM
[2018-08-08 08:05] LABS: Estimated Average Glucose 177 mg/dl; Hemoglobin A1C 7.8 % (4.5-5.6)
[2018-08-08 08:15] LABS: BUN Creatinine Ratio 24.9 (10-20); Calcium 8.8 mg/dl (8.5-10.1); Creatinine Clr Calc Pharmacy 29.2 ml/min; Est GFR (Non-African American) 34.5; Magnesium 1.9 mg/dl (1.8-2.4); Potassium 3.9 mmol/L (3.5-5.1)
[2018-08-08 08:26] LABS: Troponin I 0.06 ng/ml (0-0.045)
[2018-08-08] MEDS ORDERED: LOSARTAN POTASSIUM 50 MG TAB PO SCH (09:00)
[2018-08-08] MEDS ORDERED: LOSARTAN POTASSIUM 25 MG TAB PO SCH (09:00)
[2018-08-08] MEDS ORDERED: MAGNESIUM OXIDE 400 MG TAB PO SCH (09:00)
[2018-08-08] MEDS ORDERED: FUROSEMIDE 40 MG TAB PO SCH (09:00)
[2018-08-08] MEDS: INSULIN ASPART 100 UNITS/ML 3 ML PEN SC SCH ×4 (09:45→21:21)
[2018-08-08] MEDS: INSULIN HUMAN NPH SC SCH ×2 (09:45→17:47)
[2018-08-08] MEDS: MAGNESIUM OXIDE 400 MG TAB PO SCH ×2 (09:46→21:18)
[2018-08-08] MEDS: DOCUSATE SODIUM 100 MG CAP PO SCH ×2 (09:46→21:17)
[2018-08-08] MEDS: AMLODIPINE BESYLATE 5 MG TAB PO SCH (09:47)
[2018-08-08] MEDS: SERTRALINE HCL 50 MG TABLET PO SCH (09:47)
[2018-08-08] MEDS: ALLOPURINOL 100 MG TAB PO SCH ×2 (09:47→21:17)
[2018-08-08] MEDS: METOPROLOL SUCC 50MG EXT REL TAB PO SCH (09:47)
[2018-08-08] MEDS: CEROVITE ADV FORMULA TAB PO SCH ×2 (09:47→21:16)
[2018-08-08] MEDS: ASPIRIN 81 MG ECTAB PO SCH (09:48)
[2018-08-08] MEDS: PANTOprazole 40 MG TAB PO SCH (09:48)
[2018-08-08] MEDS: ROSUVASTATIN CALCIUM 10 MG TAB PO SCH (09:48)
--- NOTE | 2018-08-08 11:24 | Cardiology Consultation ---
Date of Consultation August 08, 2018 Assessment & Plan (1) Hypertensive urgency: Blood pressures have responded to increased medical therapy, patient currently asymptomatic (2) Palpitations: No overt arrhythmias other than sinus tachycardia observed though transient artifact versus arrhythmia noted on telemetry this morning Plan increase beta-mc therapy for hypertension and rhythm control potassium and magnesium supplemented We will hold warfarin anticipation of possible stress testing versus intervention depending on results of laboratory testing with troponin mildly elevated Echocardiogram will be reviewed preliminary review on images being performed demonstrated preserved LV systolic function moderate aortic sclerosis no distinct valvular disease. VSD not easily visual Given predominantly nocturnal symptoms nocturnal oximetry will be ordered (3) Hypomagnesemia: (4) Heart murmur: History of Present Illness Reason for Consultation: Heart pounding, elevated troponin Requesting Physician: Dr. Cross Attending Physician: Denny Cross MD History of Present Illness Patient is an 88-year-old female with complex history as outlined below. 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 Patient presents now with recent history notable for ER presentation approximately 3 weeks ago with left-sided head pain elevated blood pressures with no definitive cause. She represents this admission having been awakened from sleep with heart pounding and racing she noted no specific chest pain felt mild breathlessness. Was found to be markedly hypertensive on presentation was sinus tachycardia on telemetry and EKG. She responded to IV labetalol. She is currently with asymptomatic and is referred for further evaluation. She denies recent fevers chills or sweats, cough hoarseness wheeze or hemoptysis notes no melena hematochezia dysuria hematuria. Has mild chronic stasis edema without recent worsening appetite and weight is been stable she been ambulatory about her home and social activities without specific limitation. Patient is not vigorously active but is able to perform mild low level chores about her home Allergies Allergy/AdvReac Type Severity Reaction Status Date / Time hydrocodone Allergy Unknown . Verified 08/08/18 02:22 Penicillins Allergy Unknown . Verified 08/08/18 02:22 vancomycin AdvReac Intermediate rash on Unverified 08/08/18 02:22 head Home Medications Home Medications Medication Instructions Recorded Confirmed Type allopurinol 100 mg PO BID 07/20/18 08/08/18 History cholecalciferol (vitamin D3) 4,000 unit PO QAM 07/20/18 08/08/18 History [Vitamin D3] furosemide [Lasix] 40 mg PO QAM 07/20/18 08/08/18 History insulin asp prt-insulin aspart 40 unit SUBCUT PM 07/20/18 08/08/18 History [Novolog Mix 70-30FlexPen U-100] insulin asp prt-insulin aspart 46 unit SUBCUT QAM 07/20/18 08/08/18 History [Novolog Mix 70-30FlexPen U-100] lansoprazole 30 mg PO QAM 07/20/18 08/08/18 History losartan 25 mg PO QAM 07/20/18 08/08/18 History metoprolol succinate 50 mg PO QAM 07/20/18 08/08/18 History rosuvastatin 10 mg PO QAM 07/20/18 08/08/18 History warfarin 2.5 mg PO WK 07/20/18 08/08/18 History warfarin 5 mg PO [id number] 07/20/18 08/08/18 History cyanocobalamin (vitamin B-12) 1,000 mcg PO DAILY 08/08/18 08/08/18 History docusate sodium [Stool Softener] 100 mg PO BID 08/08/18 08/08/18 History linagliptin 5 mg PO DAILY 08/08/18 08/08/18 History losartan 50 mg PO DAILY 08/08/18 08/08/18 History vit C,N-Du-hldfp-lutein-zeaxan 1 tab PO BID 08/08/18 08/08/18 History [PreserVision AREDS-2] Patient History Medical History History of squamous cell carcinoma of skin (Chronic) Gout (Chronic) History of DVT (deep vein thrombosis) (Chronic) Macular degeneration (Chronic) Fatty liver disease, nonalcoholic (Chronic) CKD (chronic kidney disease), stage III (Chronic) Heart murmur (Chronic) MR, TR, VSD Hiatal hernia (Chronic) Renal insufficiency (Chronic) DVT (deep venous thrombosis) (Acute 01/06/14) DM type 2 (diabetes mellitus, type 2) (Chronic) Hypertension (Chronic) History of breast cancer (Chronic) Surgical History Status post insertion of inferior vena caval filter (Chronic) Status post partial mastectomy (Chronic) left breast 2009 Dr. Mccoy Family History Mother Leukemia Father Diabetes mellitus Heart disease Prostate CA Brother Valvular heart disease Other Family history non-contributory Social History Preferred Language: Chinese Communication Ability: Effective Tongue Carrier Required: No Beliefs That Will Affect Care: None Current Living Situation: Alone Other Information That Helps Us Care for You: No Feels Safe at Home: Yes Safety Concerns: Feels Safe At This Time Smoking Status: Never smoker Hx Alcohol Use: No Hx Substance Use: No Review of Systems As per HPI otherwise negative Physical Exam Vital Signs (Past 24 Hours): Last Vital Signs Temp 36.4 C L 08/08/18 11:14 Pulse 77 08/08/18 11:14 Resp 20 08/08/18 11:14 BP 145/78 H 08/08/18 11:14 Pulse Ox 97 08/08/18 11:14 Constitutional: WD/WN, vitals as above Eyes: PERRL, conjunctivae normal, anicteric sclerae Neck: trachea midline, no thyromegaly + thick neck Respiratory: normal respiratory effort, lungs clear to auscultation Cardiovascular: Rate/Rhythm: regular rate and regular rhythm Heart Sounds: normal S1, normal S2 and + murmur (Grade 2/6 to 3/6 systolic murmur is no diastolic murmur); no gallop Palpation: normal PMI Vessels: normal peripheral pulses Extremities: + edema (Mild chronic stasis edema bilateral lower extremities) Gastrointestinal (Abdomen): normal bowel sounds, soft, nontender, no hepatosplenomegaly Results & Data Laboratory Results Laboratory Results - last 24 hr 08/08/18 08/08/18 08/08/18 01:40 01:40 01:40 WBC 9.68 RBC 3.68 L Hgb 12.1 Hct 37.0 MCV 100.5 H MCH 32.9 MCHC 32.7 RDW Std Deviation 49.9 H RDW Coeff of Anupam 13.8 Plt Count 204 MPV 9.7 Immature Gran % (Auto) 0.3 Neut % (Auto) 64.0 Lymph % (Auto) 26.4 [place] % (Auto) 8.0 Eos % (Auto) 1.1 Baso % (Auto) 0.2 Immature Gran # (Auto) 0.03 H Neut # (Auto) 6.19 Lymph # (Auto) 2.56 [place] # (Auto) 0.77 H Eos # (Auto) 0.11 Baso # (Auto) 0.02 PT 22.1 H INR 2.3 H Sodium 139 Potassium 4.1 Chloride 104 Carbon Dioxide 26 Anion Gap 9.0 BUN 36 H Creatinine 1.71 H Est Cr Clr Drug Dosing 24.2 Est GFR ( Amer) 30.9 Est GFR (Non-Af Amer) 26.6 BUN/Creatinine Ratio 21.3 H Glucose 264 H POC Glucose Estimat Average Glucose Hemoglobin A1c Calcium 9.1 Magnesium 1.6 L Troponin I < 0.015 NT-Pro-B Natriuret Pep 244 Triglycerides Cholesterol LDL Cholesterol, Calc VLDL Cholesterol, Calc HDL Cholesterol Cholesterol/HDL Ratio TSH 4.320 Urine Color Urine Appearance Urine pH Ur Specific [place] Urine Protein Urine Glucose (UA) Urine Ketones Urine Blood Urine Nitrite Urine Bilirubin Urine Urobilinogen Ur Leukocyte Esterase Urine WBC (Auto) Urine RBC (Auto) U Hyaline Cast (Auto) U Epithel Cells (Auto) Urine Bacteria (Auto) 08/08/18 08/08/18 08/08/18 04:18 07:32 07:32 WBC RBC Hgb Hct MCV MCH MCHC RDW Std Deviation RDW Coeff of Anupam Plt Count MPV Immature Gran % (Auto) Neut % (Auto) Lymph % (Auto) [place] % (Auto) Eos % (Auto) Baso % (Auto) Immature Gran # (Auto) Neut # (Auto) Lymph # (Auto) [place] # (Auto) Eos # (Auto) Baso # (Auto) PT INR Sodium 142 Potassium 3.9 Chloride 108 H Carbon Dioxide 26 Anion Gap 8.0 BUN 34 H Creatinine 1.38 H D Est Cr Clr Drug Dosing 29.2 Est GFR ( Amer) 40.0 Est GFR (Non-Af Amer) 34.5 BUN/Creatinine Ratio 24.9 H Glucose 203 H POC Glucose Estimat Average Glucose 177 Hemoglobin A1c 7.8 H Calcium 8.8 Magnesium 1.9 Troponin I 0.060 H* NT-Pro-B Natriuret Pep Triglycerides 233 H Cholesterol 144 LDL Cholesterol, Calc 55 VLDL Cholesterol, Calc 47 HDL Cholesterol 42 Cholesterol/HDL Ratio 3 TSH Urine Color Yellow Urine Appearance Clear Urine pH 5.5 Ur Specific [place] 1.017 Urine Protein 2+ H Urine Glucose (UA) 3+ H Urine Ketones Negative Urine Blood 1+ H Urine Nitrite Negative Urine Bilirubin Negative Urine Urobilinogen Negative Ur Leukocyte Esterase Negative Urine WBC (Auto) 10-30 H Urine RBC (Auto) 0-4 U Hyaline Cast (Auto) 1-5 U Epithel Cells (Auto) >30 H Urine Bacteria (Auto) Negative 08/08/18 07:43 WBC RBC Hgb Hct MCV MCH MCHC RDW Std Deviation RDW Coeff of Anupam Plt Count MPV Immature Gran % (Auto) Neut % (Auto) Lymph % (Auto) [place] % (Auto) Eos % (Auto) Baso % (Auto) Immature Gran # (Auto) Neut # (Auto) Lymph # (Auto) [place] # (Auto) Eos # (Auto) Baso # (Auto) PT INR Sodium Potassium Chloride Carbon Dioxide Anion Gap BUN Creatinine Est Cr Clr Drug Dosing Est GFR ( Amer) Est GFR (Non-Af Amer) BUN/Creatinine Ratio Glucose POC Glucose 219 H Estimat Average Glucose Hemoglobin A1c Calcium Magnesium Troponin I NT-Pro-B Natriuret Pep Triglycerides Cholesterol LDL Cholesterol, Calc VLDL Cholesterol, Calc HDL Cholesterol Cholesterol/HDL Ratio TSH Urine Color Urine Appearance Urine pH Ur Specific [place] Urine Protein Urine Glucose (UA) Urine Ketones Urine Blood Urine Nitrite Urine Bilirubin Urine Urobilinogen Ur Leukocyte Esterase Urine WBC (Auto) Urine RBC (Auto) U Hyaline Cast (Auto) U Epithel Cells (Auto) Urine Bacteria (Auto)
[2018-08-08] MEDS: WARFARIN SOD 5 MG TAB PO SCH (15:43)
[2018-08-08] MEDS ORDERED: METOPROLOL SUCC 25MG EXT REL TAB PO SCH (21:00)
[2018-08-09] MEDS: NITROGLYCERIN 2% OINTMENT 30GM TUBE EXT SCH ×2 (01:18→06:15)
[2018-08-09 07:12] LABS: INR 2.5 (0.9-1.1)
[2018-08-09] MEDS: INSULIN ASPART 100 UNITS/ML 3 ML PEN SC SCH ×4 (07:42→20:27)
[2018-08-09] MEDS: INSULIN HUMAN NPH SC SCH ×2 (07:43→17:21)
[2018-08-09] MEDS: CEROVITE ADV FORMULA TAB PO SCH ×2 (07:47→20:22)
[2018-08-09] MEDS: DOCUSATE SODIUM 100 MG CAP PO SCH ×2 (07:47→20:22)
[2018-08-09] MEDS: METOPROLOL SUCC 50MG EXT REL TAB PO SCH ×2 (07:47→20:23)
[2018-08-09] MEDS: AMLODIPINE BESYLATE 5 MG TAB PO SCH (07:47)
[2018-08-09] MEDS: ASPIRIN 81 MG ECTAB PO SCH (07:48)
[2018-08-09] MEDS: SERTRALINE HCL 50 MG TABLET PO SCH (07:48)
[2018-08-09] MEDS: LOSARTAN POTASSIUM 50 MG TAB PO SCH (07:48)
[2018-08-09] MEDS: MAGNESIUM OXIDE 400 MG TAB PO SCH ×2 (07:48→20:24)
[2018-08-09] MEDS: PANTOprazole 40 MG TAB PO SCH (07:48)
[2018-08-09] MEDS: ROSUVASTATIN CALCIUM 10 MG TAB PO SCH (07:49)
[2018-08-09] MEDS: ALLOPURINOL 100 MG TAB PO SCH ×2 (07:49→20:23)
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
[2018-08-09] MEDS ORDERED: cefTRIAXone SODIUM 2,000 MG in DEXTROSE 5% 50 ML IV SCH (09:00)
--- NOTE | 2018-08-09 10:11 | Cardiology Progress Note ---
Date of Service August 09, 2018 Assessment & Plan (1) Hypertensive urgency: Blood pressures have responded to increased medical therapy but still remain elevated, patient currently asymptomatic Plan increased Toprol-XL to 50 mg twice per day Change topical nitrates to Imdur 60 mg p.o. daily, continue amlodipine and increased dose losartan (2) Palpitations: No overt arrhythmias other than sinus tachycardia observed Average heart rate still mildly elevated. Toprol increased to 50 mg twice per day, will continue telemetry given baseline first-degree AV block. Repeat EKG today No plans for stress testing today given elevated blood pressures ongoing medication adjustments. Will increase activities. Hold Coumadin tonight (3) Hypomagnesemia: (4) Heart murmur: Subjective Patient was seen and examined, chart medications and telemetry reviewed. Patient had no further symptoms overnight. No tachypalpitations chest pain or discomfort Blood pressure still elevated. Nocturnal oximetry does demonstrate intermittent desaturation Physical Exam Vital Signs (Past 24 Hours): Last Vital Signs Temp 36.7 C 08/09/18 07:40 Pulse 85 08/09/18 08:43 Resp 16 08/09/18 07:40 BP 172/89 H 08/09/18 07:40 Pulse Ox 96 08/09/18 07:40 Constitutional: WD/WN, vitals as above Eyes: PERRL, conjunctivae normal, anicteric sclerae Neck: trachea midline, no thyromegaly + thick neck Respiratory: normal respiratory effort, lungs clear to auscultation Cardiovascular: Rate/Rhythm: regular rate and regular rhythm Heart Sounds: normal S1, normal S2 and + murmur (Grade 2/6 to 3/6 systolic murmur is no diastolic murmur); no gallop Palpation: normal PMI Vessels: normal peripheral pulses Extremities: + edema (Mild chronic stasis edema bilateral lower extremities) Gastrointestinal (Abdomen): normal bowel sounds, soft, nontender, no hepatosplenomegaly Results & Data Laboratory Results Laboratory Results - last 24 hr 08/08/18 08/08/18 08/08/18 11:35 13:41 16:24 PT INR POC Glucose 175 H 187 H Troponin I 0.658 H* 08/08/18 08/09/18 08/09/18 20:33 06:11 07:34 PT 24.0 H INR 2.5 H POC Glucose 104 H 118 H Troponin I
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
[2018-08-09] MEDS: ISOSORBIDE MONO EXTENDED REL 60 MG TABCR PO SCH (11:45)
[2018-08-10 06:28] LABS: INR 2.1 (0.9-1.1); Prothrombin Time 20.5 Seconds (9.0-12.0)
[2018-08-10] MEDS: MAGNESIUM OXIDE 400 MG TAB PO SCH ×2 (07:46→20:54)
[2018-08-10] MEDS: DOCUSATE SODIUM 100 MG CAP PO SCH ×2 (07:47→20:54)
[2018-08-10] MEDS: LOSARTAN POTASSIUM 50 MG TAB PO SCH (07:47)
[2018-08-10] MEDS: AMLODIPINE BESYLATE 5 MG TAB PO SCH (07:47)
[2018-08-10] MEDS: ALLOPURINOL 100 MG TAB PO SCH ×2 (07:48→20:55)
[2018-08-10] MEDS: ASPIRIN 81 MG ECTAB PO SCH (07:48)
[2018-08-10] MEDS: ROSUVASTATIN CALCIUM 10 MG TAB PO SCH (07:48)
[2018-08-10] MEDS: METOPROLOL SUCC 50MG EXT REL TAB PO SCH ×2 (07:48→20:55)
[2018-08-10] MEDS: CEROVITE ADV FORMULA TAB PO SCH ×2 (07:48→20:54)
[2018-08-10] MEDS: SERTRALINE HCL 50 MG TABLET PO SCH (07:48)
[2018-08-10] MEDS: ISOSORBIDE MONO EXTENDED REL 60 MG TABCR PO SCH (07:49)
[2018-08-10] MEDS: PANTOprazole 40 MG TAB PO SCH (07:49)
[2018-08-10] MEDS: INSULIN HUMAN NPH SC SCH ×2 (08:42→20:56)
[2018-08-10] MEDS: INSULIN ASPART 100 UNITS/ML 3 ML PEN SC SCH ×4 (08:43→20:55)
[2018-08-10 08:55] LABS: Basophils # (auto) 0.02 K/uL (0-0.2); Basophils % (auto) 0.2 %; Eosinophils # (auto) 0.15 K/uL (0-0.5); Eosinophils % (auto) 1.5 %; Hemoglobin 10.9 g/dL (12.0-16.0); Immature Granulocytes # (auto) 0.02 K/uL (0.00-0.02); Immature Granulocytes % (auto) 0.2 %; Lymphocytes % (auto) 29.8 %; Mean Corpuscular Hgb Conc 32.1 g/dL (32-36); Mean Corpuscular Volume 101.5 fL (80-100); Mean Platelet Volume 9.9 fL (7.4-10.4); Monocytes % (auto) 9.2 %; Neutrophils # (auto) 5.75 K/uL (1.4-6.5); Neutrophils % (auto) 59.1 %; Platelet Count 203 K/uL (130-400); RDW Coefficient of Variation 13.9 % (11.5-14.5); RDW Standard Deviation 51.3 fL (36.4-46.3); Red Blood Count 3.35 M/uL (4.2-5.4); White Blood Count 9.74 K/uL (4.8-10.8)
[2018-08-10 09:05] LABS: BUN Creatinine Ratio 23.7 (10-20); Calcium 9.4 mg/dl (8.5-10.1); Creatinine Clr Calc Pharmacy 28.3 ml/min; Est GFR (African American) 38.7; Est GFR (Non-African American) 33.4; Potassium 4.9 mmol/L (3.5-5.1)
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
--- NOTE | 2018-08-10 11:57 | Cardiology Progress Note ---
Date of Service August 10, 2018 Assessment & Plan (1) Hypertensive urgency: Blood pressures have responded to increased medical therapy but still remain elevated, patient currently asymptomatic Plan increased Toprol-XL to 50 mg twice per day Change topical nitrates to Imdur 60 mg p.o. daily, continue amlodipine and increased dose losartan Blood pressure is lower this morning will reduce amlodipine to 2.5 mill grams per day given mild chronic stasis edema (2) Palpitations: Atrial fibrillation observed on telemetry with patient persistent this morning. Suspect this is in part culprit symptoms resulting in presentation. Would continue increased dose of Toprol resume full anticoagulation with warfarin (3) Hypomagnesemia: (4) Heart murmur: Subjective Patient was seen and examined, chart medications and telemetry reviewed. Patient had no further symptoms overnight. However on telemetry patient lapsed into atrial fibrillation with generally controlled ventricular response rate no profound pauses or bradycardia arrhythmias Physical Exam Vital Signs (Past 24 Hours): Last Vital Signs Temp 36.7 C 08/10/18 07:07 Pulse 89 08/10/18 09:01 Resp 17 08/10/18 07:07 BP 100/73 08/10/18 07:07 Pulse Ox 100 08/10/18 07:07 Constitutional: WD/WN, vitals as above Eyes: PERRL, conjunctivae normal, anicteric sclerae Neck: trachea midline, no thyromegaly + thick neck Respiratory: normal respiratory effort, lungs clear to auscultation Cardiovascular: Heart Sounds: normal S1, normal S2 and + murmur (Grade 2/6 to 3/6 systolic murmur is no diastolic murmur); no gallop Palpation: normal PMI Vessels: normal peripheral pulses Extremities: + edema (Mild chronic stasis edema bilateral lower extremities) Irregularly irregular Gastrointestinal (Abdomen): normal bowel sounds, soft, nontender, no hepatosplenomegaly Results & Data Laboratory Results Laboratory Results - last 24 hr 08/09/18 08/09/18 08/10/18 16:16 20:11 05:56 WBC RBC Hgb Hct MCV MCH MCHC RDW Std Deviation RDW Coeff of Anupam Plt Count MPV Immature Gran % (Auto) Neut % (Auto) Lymph % (Auto) [place] % (Auto) Eos % (Auto) Baso % (Auto) Immature Gran # (Auto) Neut # (Auto) Lymph # (Auto) [place] # (Auto) Eos # (Auto) Baso # (Auto) PT 20.5 H INR 2.1 H Sodium Potassium Chloride Carbon Dioxide Anion Gap BUN Creatinine Est Cr Clr Drug Dosing Est GFR ( Amer) Est GFR (Non-Af Amer) BUN/Creatinine Ratio Glucose POC Glucose 212 H 233 H Calcium Magnesium 08/10/18 08/10/18 08/10/18 05:56 05:56 07:19 WBC 9.74 RBC 3.35 L Hgb 10.9 L Hct 34.0 L MCV 101.5 H MCH 32.5 MCHC 32.1 RDW Std Deviation 51.3 H RDW Coeff of Anupam 13.9 Plt Count 203 MPV 9.9 Immature Gran % (Auto) 0.2 Neut % (Auto) 59.1 Lymph % (Auto) 29.8 [place] % (Auto) 9.2 Eos % (Auto) 1.5 Baso % (Auto) 0.2 Immature Gran # (Auto) 0.02 Neut # (Auto) 5.75 Lymph # (Auto) 2.90 [place] # (Auto) 0.90 H Eos # (Auto) 0.15 Baso # (Auto) 0.02 PT INR Sodium 140 Potassium 4.9 D Chloride 106 Carbon Dioxide 30 Anion Gap 4.0 BUN 34 H Creatinine 1.42 H Est Cr Clr Drug Dosing 28.3 Est GFR ( Amer) 38.7 Est GFR (Non-Af Amer) 33.4 BUN/Creatinine Ratio 23.7 H Glucose 166 H POC Glucose 169 H Calcium 9.4 Magnesium 2.0 08/10/18 11:21 WBC RBC Hgb Hct MCV MCH MCHC RDW Std Deviation RDW Coeff of Anupam Plt Count MPV Immature Gran % (Auto) Neut % (Auto) Lymph % (Auto) [place] % (Auto) Eos % (Auto) Baso % (Auto) Immature Gran # (Auto) Neut # (Auto) Lymph # (Auto) [place] # (Auto) Eos # (Auto) Baso # (Auto) PT INR Sodium Potassium Chloride Carbon Dioxide Anion Gap BUN Creatinine Est Cr Clr Drug Dosing Est GFR ( Amer) Est GFR (Non-Af Amer) BUN/Creatinine Ratio Glucose POC Glucose 278 H Calcium Magnesium
[2018-08-10] MEDS: WARFARIN SOD 5 MG TAB PO SCH (16:19)
[2018-08-10] MEDS ORDERED: ZOLPIDEM TARTRATE 5 MG TAB PO PRN (16:24)
[2018-08-10] MEDS ORDERED: PHARMACY GLYCEMIC MGMT CONSULT PRN (16:53)
--- NOTE | 2018-08-10 18:59 | Pharmacy Report ---
Glycemic Control Consultation - Date of Service August 10, 2018 - Scope Scope: Glycemic Pharmacist consulted by Dr Cross on 08/10/18 for glycemic control and to write orders per [facility] inpatient glycemic control protocol - Objective Weight: 86 kg Accuchecks BSG (last 24hrs): 08/09/18 08/10/18 08/10/18 20:11 05:56 07:19 Glucose 166 H POC Glucose 233 H 169 H 08/10/18 08/10/18 08/10/18 11:21 16:15 16:33 Glucose POC Glucose 278 H 54 L* 73 Laboratory Data (last 24hrs): 08/10/18 05:56 Potassium 4.9 D Carbon Dioxide 30 Anion Gap 4.0 Creatinine 1.42 H Est Cr Clr Drug Dosing 28.3 HbA1c: Hemoglobin A1c 7.8 % (4.5-5.6) H 08/08/18 07:32 - Recent Pertinent Medications Outpatient Anti-diabetic Regimen: * Novolog mix 46 units qAM, 40 units qPM * A1c = 7.8 % 08/08/18 The patient is currently receiving: * Basal insulin: NPH 32 units qAM (dose held on 08/09) NPH 28 units with dinner * Correctional Insulin: Novolog Correction per scale ACHS Goal Range: Low 120 mg/dL - High 160 mg/dL Correction Factor: 15 mg/dL/unit * Prandial insulin: Per carb ratio of 1 unit per 5 grams CHO consumed - Assessment & Plan Assessment & Plan: ASSESSMENT: * 88 yr old female admitted with chest pain and hypertensive urgency * She is managed on Novolog mix at home (86 units per day). This regimen was transitioned to NPH + Novolog on admission. * Pt received only 51 units of insulin yesterday. Her AM dose of NPH was held on 08/09. * BSG trending downward; 73 mg/dL with dinner. I will loosen Novolog parameters and order a partial dose of NPH for this evening. PLAN FOR INPATIENT GLYCEMIC CONTROL: * Basal insulin * NPH per scale SQ BIDM * 15 units for BSG 180 mg/dL or less * 22 units for BSG greater than 180 mg/dL * Bolus insulin - loosen * NovoLog per scale ACHS or Q6hrs while NPO * Goal Range: Low 120 mg/dL - High 160 mg/dL * Correction Factor: 20 mg/dL/unit * Nutritional / Prandial insulin per carb ratio of 1 unit per 7 grams CHO consumed * Please note that the plan above was derived based on current level of insulin resistance and hospital stress. These recommendations are appropriate for inpatient admission only. Plan of care upon discharge will need to be reassessed to avoid potential outpatient hypo/hyperglycemia. Thank you.
[2018-08-11 06:28] LABS: INR 1.7 (0.9-1.1); Prothrombin Time 16.4 Seconds (9.0-12.0)
[2018-08-11] MEDS: PANTOprazole 40 MG TAB PO SCH (07:49)
[2018-08-11] MEDS: METOPROLOL SUCC 50MG EXT REL TAB PO SCH (07:49)
[2018-08-11] MEDS: ISOSORBIDE MONO EXTENDED REL 60 MG TABCR PO SCH (07:49)
[2018-08-11] MEDS: LOSARTAN POTASSIUM 50 MG TAB PO SCH (07:49)
[2018-08-11] MEDS: ASPIRIN 81 MG ECTAB PO SCH (07:50)
[2018-08-11] MEDS: MAGNESIUM OXIDE 400 MG TAB PO SCH ×2 (07:50→20:41)
[2018-08-11] MEDS: ALLOPURINOL 100 MG TAB PO SCH ×2 (07:50→20:41)
[2018-08-11] MEDS: CEROVITE ADV FORMULA TAB PO SCH ×2 (07:50→20:41)
[2018-08-11] MEDS: SERTRALINE HCL 50 MG TABLET PO SCH (07:50)
[2018-08-11] MEDS: INSULIN ASPART 100 UNITS/ML 3 ML PEN SC SCH ×4 (07:51→20:32)
[2018-08-11] MEDS: ROSUVASTATIN CALCIUM 10 MG TAB PO SCH (07:51)
[2018-08-11] MEDS: INSULIN HUMAN NPH SC SCH ×2 (07:52→16:51)
[2018-08-11] MEDS: DOCUSATE SODIUM 100 MG CAP PO SCH ×2 (13:01→20:41)
[2018-08-11] MEDS: AMLODIPINE BESYLATE 5 MG TAB PO SCH (13:01)
--- NOTE | 2018-08-11 14:10 | Cardiology Progress Note ---
Date of Service August 11, 2018 Assessment & Plan (1) PAF (paroxysmal atrial fibrillation): Patient continues to have breakthrough episodes of tachypalpitations and paroxysmal atrial fibrillation on telemetry. We will discontinue metoprolol begin sotalol 80 mg p.o. twice daily serial EKGs ordered Will supplement oxygen nocturnally given hypoxia demonstrated Maintain telemetry at least additional 48 hours (2) Hypertensive urgency: Blood pressure appears controlled (3) Palpitations: Atrial fibrillation observed on telemetry with patient persistent this morning. Suspect this is in part culprit symptoms resulting in presentation. Would continue increased dose of Toprol resume full anticoagulation with warfarin (4) Hypomagnesemia: (5) Heart murmur: Subjective Patient was seen and examined, chart medications and telemetry reviewed. Patient had no further symptoms overnight. Telemetry however if he continues to demonstrate paroxysmal atrial fibrillation with rapid response at times Physical Exam Vital Signs (Past 24 Hours): Last Vital Signs Temp 36.4 C L 08/11/18 10:49 Pulse 64 08/11/18 10:49 Resp 18 08/11/18 10:49 BP 117/68 08/11/18 10:49 Pulse Ox 97 08/11/18 10:49 Constitutional: WD/WN, vitals as above Eyes: PERRL, conjunctivae normal, anicteric sclerae Neck: trachea midline, no thyromegaly + thick neck Respiratory: normal respiratory effort, lungs clear to auscultation Cardiovascular: Rate/Rhythm: regular rate and regular rhythm Heart Sounds: normal S1, normal S2 and + murmur (Grade 2/6 to 3/6 systolic murmur is no diasto lic murmur); no gallop Palpation: normal PMI Vessels: normal peripheral pulses Extremities: + edema (Mild chronic stasis edema bilateral lower extremities) Gastrointestinal (Abdomen): normal bowel sounds, soft, nontender, no hepatosplenomegaly
[2018-08-11] MEDS: SOTALOL HCL 80 MG TAB PO SCH (16:49)
[2018-08-11] MEDS: WARFARIN SOD 5 MG TAB PO SCH (17:38)
--- NOTE | 2018-08-11 17:51 | Pharmacy Report ---
Pharmacy Glycemic Short Note 2 - Date of Service August 11, 2018 - Glycemic Short BSG Results (Last 24 hours): 08/10/18 08/11/18 08/11/18 20:18 07:26 10:53 POC Glucose 200 H 132 H 204 H 08/11/18 16:32 POC Glucose 163 H OUTPATIENT ANTIDIABETIC REGIMEN: * Novolog mix 46 units qAM, 40 units qPM * A1c = 7.8 % 08/08/18 ASSESSMENT: 08/11 * Ms. Maddox received 95 units of insulin yesterday (54 of this was basal - which was most likely the cause for the low BSG) * NPH was adjusted to give 30 units/day as long as BSG < 180 mg/dL. BSGs have been much more improved today. Pre-lunch elevated; however, this was drawn before 11 am so it may have been closer to a postprandial BSG. 08/10 * 88 yr old female admitted with chest pain and hypertensive urgency * She is managed on Novolog mix at home (86 units per day). This regimen was transitioned to NPH + Novolog on admission. * Pt received only 51 units of insulin yesterday. Her AM dose of NPH was held on 08/09. * BSG trending downward; 73 mg/dL with dinner. I will loosen Novolog parameters and order a partial dose of NPH for this evening. PLAN FOR INPATIENT GLYCEMIC CONTROL: * Basal insulin - no change * NPH BID per the following scale * 15 units for BSG 180 mg/dL or less * 22 units for BSG > 180 mg/dL * Bolus insulin - no change; can consider tightening goal range tomorrow if BSGs stay in/above goal range * NovoLog per scale ACHS or Q6hrs while NPO * Goal Range: Low 120 mg/dL - High 160 mg/dL * Correction Factor: 20 mg/dL/unit * Nutritional / Prandial insulin per carb ratio of 1 unit per 7 grams CHO consumed PLAN FOR DISCHARGE: * A1c indicates good control for patient's age/comorbidities. Strict glucose control is not warranted. * Continue outpatient regimen on discharge as long as patient not experiencing hypoglycemia at home
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
[2018-08-12] MEDS: DOCUSATE SODIUM 100 MG CAP PO SCH ×2 (07:18→21:02)
[2018-08-12] MEDS: ISOSORBIDE MONO EXTENDED REL 60 MG TABCR PO SCH (07:18)
[2018-08-12] MEDS: PANTOprazole 40 MG TAB PO SCH (07:19)
[2018-08-12] MEDS: ALLOPURINOL 100 MG TAB PO SCH ×2 (07:19→21:00)
[2018-08-12] MEDS: CEROVITE ADV FORMULA TAB PO SCH ×2 (07:19→21:03)
[2018-08-12] MEDS: SOTALOL HCL 80 MG TAB PO SCH ×2 (07:19→16:26)
[2018-08-12] MEDS: MAGNESIUM OXIDE 400 MG TAB PO SCH ×2 (07:20→21:01)
[2018-08-12] MEDS: ROSUVASTATIN CALCIUM 10 MG TAB PO SCH (07:21)
[2018-08-12] MEDS: SERTRALINE HCL 50 MG TABLET PO SCH (07:21)
[2018-08-12] MEDS: LOSARTAN POTASSIUM 50 MG TAB PO SCH (07:23)
[2018-08-12] MEDS: AMLODIPINE BESYLATE 5 MG TAB PO SCH (07:23)
[2018-08-12] MEDS: ASPIRIN 81 MG ECTAB PO SCH (07:24)
[2018-08-12] MEDS: INSULIN HUMAN NPH SC SCH ×2 (07:28→16:28)
[2018-08-12] MEDS: INSULIN ASPART 100 UNITS/ML 3 ML PEN SC SCH ×4 (08:21→21:05)
--- NOTE | 2018-08-12 11:59 | Cardiology Progress Note ---
Date of Service August 12, 2018 Assessment & Plan (1) PAF (paroxysmal atrial fibrillation): Patient continues to have breakthrough episodes of tachypalpitations and paroxysmal atrial fibrillation on telemetry. We will discontinue metoprolol begin sotalol 80 mg p.o. twice daily serial EKGs ordered Will supplement oxygen nocturnally given hypoxia demonstrated Tolerating sotalol no QT prolongation no further arrhythmias, plan as outlined maintain telemetry (2) Hypertensive urgency: Blood pressure appears controlled (3) Palpitations: Secondary to paroxysmal atrial fibrillation (4) Hypomagnesemia: (5) Heart murmur: Subjective Patient was seen and examined, chart medications and telemetry reviewed. Patient had no further symptoms overnight. Telemetry reveals no further atrial fibrillation. Patient feels well ambulatory in room. EKG reveals no QT prolongation. Sotalol appears to be initially effective. Physical Exam Vital Signs (Past 24 Hours): Last Vital Signs Temp 36.3 C L 08/12/18 11:40 Pulse 65 08/12/18 11:40 Resp 19 08/12/18 11:40 BP 115/78 08/12/18 11:40 Pulse Ox 97 08/12/18 11:40 Constitutional: WD/WN, vitals as above Eyes: PERRL, conjunctivae normal, anicteric sclerae Neck: trachea midline, no thyromegaly + thick neck Respiratory: normal respiratory effort, lungs clear to auscultation Cardiovascular: Rate/Rhythm: regular rate and regular rhythm Heart Sounds: normal S1, normal S2 and + murmur (Grade 2/6 to 3/6 systolic murmur is no diastolic murmur); no gallop Palpation: normal PMI Vessels: normal peripheral pulses Extremities: + edema (Mild chronic stasis edema bilateral lower extremities) Gastrointestinal (Abdomen): normal bowel sounds, soft, nontender, no hepatosplenomegaly Results & Data Laboratory Results Laboratory Results - last 24 hr 08/11/18 08/11/18 08/12/18 16:32 20:04 07:20 POC Glucose 163 H 142 H 159 H 08/12/18 11:20 POC Glucose 202 H Diagnostic Findings [id number] 06:14:25 [facility] Normal sinus rhythm Normal ECG When compared with ECG of 10-AUG-2018 06:50, Sinus rhythm has replaced Atrial fibrillation QTC 434
--- NOTE | 2018-08-12 12:15 | Pharmacy Report ---
Pharmacy Glycemic Short Note 2 - Date of Service August 12, 2018 - Glycemic Short BSG Results (Last 24 hours): 08/11/18 08/11/18 08/12/18 16:32 20:04 07:20 POC Glucose 163 H 142 H 159 H 08/12/18 11:20 POC Glucose 202 H OUTPATIENT ANTIDIABETIC REGIMEN: * Novolog mix 46 units qAM, 40 units qPM * A1c = 7.8 % 08/08/18 ASSESSMENT: 08/12 * Ms. Maddox received 46 units of insulin yesterday (30 of this was basal) * Fasting BSG = 159 mg/dL; slightly above goal but will wait to adjust NPH until a trend is seen * Pre-lunch BSG elevated again today. It appears that she is not receiving enough coverage with breakfast so will tighten CR for breakfast only 08/11 * Ms. Maddox received 95 units of insulin yesterday (54 of this was basal - which was most likely the cause for the low BSG) * NPH was adjusted to give 30 units/day as long as BSG < 180 mg/dL. BSGs have been much more improved today. Pre-lunch elevated; however, this was drawn before 11 am so it may have been closer to a postprandial BSG. 08/10 * 88 yr old female admitted with chest pain and hypertensive urgency * She is managed on Novolog mix at home (86 units per day). This regimen was transitioned to NPH + Novolog on admission. * Pt received only 51 units of insulin yesterday. Her AM dose of NPH was held on 08/09. * BSG trending downward; 73 mg/dL with dinner. I will loosen Novolog parameters and order a partial dose of NPH for this evening. PLAN FOR INPATIENT GLYCEMIC CONTROL: * Basal insulin - no change * NPH BID per the following scale * 15 units for BSG 180 mg/dL or less * 22 units for BSG > 180 mg/dL * Bolus insulin - tighten CR for breakfast only * NovoLog per scale ACHS or Q6hrs while NPO * Goal Range: Low 120 mg/dL - High 160 mg/dL * Correction Factor: 20 mg/dL/unit * Nutritional / Prandial insulin per carb ratio of 1 unit per 7 grams CHO consumed ( 1 unit per 5 gm CHO w/ breakfast) PLAN FOR DISCHARGE: * A1c indicates good control for patient's age/comorbidities. Strict glucose control is not warranted. * Continue outpatient regimen on discharge as long as patient not experiencing hypoglycemia at home
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
[2018-08-12] MEDS: WARFARIN SOD 5 MG TAB PO SCH (16:27)
[2018-08-13 06:45] LABS: INR 1.4 (0.9-1.1)
[2018-08-13] MEDS: ALLOPURINOL 100 MG TAB PO SCH ×2 (07:30→20:15)
[2018-08-13] MEDS: AMLODIPINE BESYLATE 5 MG TAB PO SCH (07:30)
[2018-08-13] MEDS: LOSARTAN POTASSIUM 50 MG TAB PO SCH (07:30)
[2018-08-13] MEDS: CEROVITE ADV FORMULA TAB PO SCH ×2 (07:30→20:15)
[2018-08-13] MEDS: PANTOprazole 40 MG TAB PO SCH (07:30)
[2018-08-13] MEDS: MAGNESIUM OXIDE 400 MG TAB PO SCH ×2 (07:31→20:15)
[2018-08-13] MEDS: ISOSORBIDE MONO EXTENDED REL 60 MG TABCR PO SCH (07:31)
[2018-08-13] MEDS: SERTRALINE HCL 50 MG TABLET PO SCH (07:31)
[2018-08-13] MEDS: DOCUSATE SODIUM 100 MG CAP PO SCH ×2 (07:32→20:15)
[2018-08-13] MEDS: ASPIRIN 81 MG ECTAB PO SCH (07:32)
[2018-08-13] MEDS: SOTALOL HCL 80 MG TAB PO SCH ×2 (07:32→17:11)
[2018-08-13] MEDS: ROSUVASTATIN CALCIUM 10 MG TAB PO SCH (07:32)
[2018-08-13] MEDS: INSULIN HUMAN NPH SC SCH ×2 (07:34→17:12)
[2018-08-13] MEDS: INSULIN ASPART 100 UNITS/ML 3 ML PEN SC SCH ×4 (08:01→20:17)
--- NOTE | 2018-08-13 12:26 | Pharmacy Report ---
Pharmacy Glycemic Short Note 2 - Date of Service August 13, 2018 - Glycemic Short BSG Results (Last 24 hours): 08/12/18 08/12/18 08/12/18 11:20 16:19 20:17 POC Glucose 202 H 104 H 204 H 08/13/18 08/13/18 07:17 11:13 POC Glucose 113 H 227 H OUTPATIENT ANTIDIABETIC REGIMEN: * Novolog mix 46 units qAM, 40 units qPM * A1c = 7.8 % 08/08/18 ASSESSMENT: 08/13 * The patient received 62 units of insulin yesterday (30 of this being basal) * Fasting = 113 mg/dL; no change to PM dose of NPH * Pre-lunch BSG is elevated further today; however, I'm not sure why this is the case since the carb ratio was tightened w/ breakfast this AM. All doses seem to be given at the appropriate time and no other causes of insulin resistance are in effect. It could be due to the higher goal range, which is subtracting prandial insulin when BSG is below the goal. Will adjust goal range for now. If BSG remains elevated, may need to tighten breakfast carb ratio further OR increase the AM dose of NPH. 08/12 * Ms. Maddox received 46 units of insulin yesterday (30 of this was basal) * Fasting BSG = 159 mg/dL; slightly above goal but will wait to adjust NPH until a trend is seen * Pre-lunch BSG elevated again today. It appears that she is not receiving enough coverage with breakfast so will tighten CR for breakfast only 08/11 * Ms. Maddox received 95 units of insulin yesterday (54 of this was basal - which was most likely the cause for the low BSG) * NPH was adjusted to give 30 units/day as long as BSG < 180 mg/dL. BSGs have been much more improved today. Pre-lunch elevated; however, this was drawn before 11 am so it may have been closer to a postprandial BSG. 08/10 * 88 yr old female admitted with chest pain and hypertensive urgency * She is managed on Novolog mix at home (86 units per day). This regimen was transitioned to NPH + Novolog on admission. * Pt received only 51 units of insulin yesterday. Her AM dose of NPH was held on 08/09. * BSG trending downward; 73 mg/dL with dinner. I will loosen Novolog parameters and order a partial dose of NPH for this evening. PLAN FOR INPATIENT GLYCEMIC CONTROL: * Basal insulin - change to set dose of 15 units BID since the patient has been receiving this dose * NPH 15 units BID with meals * Bolus insulin - tighten goal range * NovoLog per scale ACHS or Q6hrs while NPO * Goal Range: Low 110 mg/dL - High 150 mg/dL * Correction Factor: 20 mg/dL/unit * Nutritional / Prandial insulin per carb ratio of 1 unit per 7 grams CHO consumed ( 1 unit per 5 gm CHO w/ breakfast) PLAN FOR DISCHARGE: * A1c indicates good control for patient's age/comorbidities. Strict glucose control is not warranted. * Continue outpatient regimen on discharge as long as patient not experiencing hypoglycemia at home
--- NOTE | 2018-08-13 14:08 | Cardiology Progress Note ---
Date of Service August 13, 2018 Assessment & Plan (1) PAF (paroxysmal atrial fibrillation): Patient continues to have breakthrough episodes of tachypalpitations and paroxysmal atrial fibrillation on telemetry. We will discontinue metoprolol begin sotalol 80 mg p.o. twice daily serial EKGs ordered Will supplement oxygen nocturnally given hypoxia demonstrated Tolerating sotalol no QT prolongation no further arrhythmias, plan as outlined maintain telemetry. If no further arrhythmias anticipate discharge tomorrow Continue chronic anticoagulation with warfarin (2) Hypertensive urgency: Blood pressure appears controlled (3) Palpitations: Secondary to paroxysmal atrial fibrillation (4) Hypomagnesemia: (5) Heart murmur: Subjective Patient was seen and examined, chart medications and telemetry reviewed. Patient had no further symptoms overnight. Telemetry reveals no further atrial fibrillation. Patient feels well ambulatory in room. EKG reveals no QT prolongation. Physical Exam Vital Signs (Past 24 Hours): Last Vital Signs Temp 36.3 C L 08/13/18 11:33 Pulse 65 08/13/18 11:33 Resp 19 08/13/18 11:33 BP 123/54 L 08/13/18 11:33 Pulse Ox 97 08/13/18 11:33 Constitutional: WD/WN, vitals as above Eyes: PERRL, conjunctivae normal, anicteric sclerae Neck: trachea midline, no thyromegaly + thick neck Respiratory: normal respiratory effort, lungs clear to auscultation Cardiovascular: Rate/Rhythm: regular rate and regular rhythm Heart Sounds: normal S1, normal S2 and + murmur (Grade 2/6 to 3/6 systolic murmur is no diastolic murmur); no gallop Palpation: normal PMI Vessels: normal peripheral pulses Extremities: + edema (Mild chronic stasis edema bilateral lower extremities) Gastrointestinal (Abdomen): normal bowel sounds, soft, nontender, no hepatosplenomegaly Results & Data Laboratory Results Laboratory Results - last 24 hr 08/12/18 08/12/18 08/13/18 16:19 20:17 06:00 PT 14.0 H INR 1.4 H POC Glucose 104 H 204 H 08/13/18 08/13/18 07:17 11:13 PT INR POC Glucose 113 H 227 H ECG Additional Comments: 13-AUG-2018 06:21:42 [facility] Normal sinus rhythm Incomplete right bundle branch block Borderline ECG When compared with ECG of 12-AUG-2018 06:14, (unconfirmed) No significant change was found QTC 455
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
[2018-08-13] MEDS: WARFARIN SOD 5 MG TAB PO SCH (17:09)
[2018-08-14 06:32] LABS: INR 1.5 (0.9-1.1); Prothrombin Time 14.6 Seconds (9.0-12.0)
[2018-08-14] MEDS: DOCUSATE SODIUM 100 MG CAP PO SCH (08:25)
[2018-08-14] MEDS: CEROVITE ADV FORMULA TAB PO SCH (08:25)
[2018-08-14] MEDS: LOSARTAN POTASSIUM 50 MG TAB PO SCH (08:25)
[2018-08-14] MEDS: SOTALOL HCL 80 MG TAB PO SCH ×2 (08:25→16:30)
[2018-08-14] MEDS: ALLOPURINOL 100 MG TAB PO SCH (08:25)
[2018-08-14] MEDS: AMLODIPINE BESYLATE 5 MG TAB PO SCH (08:25)
[2018-08-14] MEDS: PANTOprazole 40 MG TAB PO SCH (08:25)
[2018-08-14] MEDS: ISOSORBIDE MONO EXTENDED REL 60 MG TABCR PO SCH (08:25)
[2018-08-14] MEDS: ROSUVASTATIN CALCIUM 10 MG TAB PO SCH (08:26)
[2018-08-14] MEDS: SERTRALINE HCL 50 MG TABLET PO SCH (08:26)
[2018-08-14] MEDS: INSULIN HUMAN NPH SC SCH (08:27)
[2018-08-14] MEDS: MAGNESIUM OXIDE 400 MG TAB PO SCH (08:27)
[2018-08-14] MEDS: ASPIRIN 81 MG ECTAB PO SCH (08:27)
[2018-08-14] MEDS: INSULIN ASPART 100 UNITS/ML 3 ML PEN SC SCH ×2 (08:31→12:23)
--- NOTE | 2018-08-14 11:16 | Cardiology Progress Note ---
Date of Service August 14, 2018 Assessment & Plan (1) PAF (paroxysmal atrial fibrillation): Patient continues to have breakthrough episodes of tachypalpitations and paroxysmal atrial fibrillation on telemetry. We will discontinue metoprolol begin sotalol 80 mg p.o. twice daily serial EKGs ordered Will supplement oxygen nocturnally given hypoxia demonstrated Tolerating sotalol no QT prolongation no further arrhythmias. Anticipate discharge later today. Will need follow-up with cardiology Ramesh Smyth versus Breana Dean Nocturnal hypoxia noted during hospitalization would consider supplemental oxygen on discharge (2) Hypertensive urgency: Blood pressure appears controlled (3) Palpitations: Secondary to paroxysmal atrial fibrillation (4) Hypomagnesemia: (5) Heart murmur: Subjective Patient was seen and examined, chart medications and telemetry reviewed. Patient had no further symptoms overnight. Telemetry reveals no further atrial fibrillation. Patient feels well ambulatory in room. EKG reveals no QT prolongation. Physical Exam Vital Signs (Past 24 Hours): Last Vital Signs Temp 36.6 C 08/14/18 07:07 Pulse 70 08/14/18 07:07 Resp 19 08/14/18 07:07 BP 131/79 08/14/18 07:07 Pulse Ox 97 08/14/18 07:07 Constitutional: WD/WN, vitals as above Eyes: PERRL, conjunctivae normal, anicteric sclerae Neck: trachea midline, no thyromegaly + thick neck Respiratory: normal respiratory effort, lungs clear to auscultation Cardiovascular: Rate/Rhythm: regular rate and regular rhythm Heart Sounds: normal S1, normal S2 and + murmur (Grade 2/6 to 3/6 systolic murmur is no diastolic murmur); no gallop Palpation: normal PMI Vessels: normal peripheral pulses Extremities: + edema (Mild chronic stasis edema bilateral lower extremities) Gastrointestinal (Abdomen): normal bowel sounds, soft, nontender, no hepatosplenomegaly Results & Data Laboratory Results Laboratory Results - last 24 hr 08/13/18 08/13/18 08/13/18 11:13 16:38 20:03 PT INR POC Glucose 227 H 131 H 161 H 08/14/18 08/14/18 05:57 07:06 PT 14.6 H INR 1.5 H POC Glucose 158 H
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
[2018-08-14] MEDS: WARFARIN SOD 5 MG TAB PO SCH (16:29)
[2018-08-14] MEDS ORDERED: SOTALOL HCL 80 MG TAB PO SCH (17:00)
== END 2018-08-14 16:51 | disposition home or self-care (01) | DRG 309 ==
LOC: 2S 01:30 → ED 01:30 → 2S 03:54 → SUATTDRO 18:23
DX: Z85.3 Personal history of malignant neoplasm of breast; Z83.3 Family history of diabetes mellitus; I16.0 Hypertensive urgency; Z86.718 Personal history of other venous thrombosis and embolism; Z88.1 Allergy status to other antibiotic agents; N18.3 Chronic kidney disease, stage 3 (moderate); E83.42 Hypomagnesemia; M10.9 Gout, unspecified; Z79.01 Long term (current) use of anticoagulants; Z82.49 Family history of ischemic heart disease and other diseases of the circulatory system; Z95.828 Presence of other vascular implants and grafts; I48.0 Paroxysmal atrial fibrillation; Q21.0 Ventricular septal defect; K21.9 Gastro-esophageal reflux disease without esophagitis; E11.9 Type 2 diabetes mellitus without complications; Z88.0 Allergy status to penicillin; F32.9 Major depressive disorder, single episode, unspecified

== ENCOUNTER 2020-01-01 01:32 | Observation (INO) ==
[2020-01-01] MEDS ORDERED: MECLIZINE HCL 25 MG TAB PO STA (01:47)
[2020-01-01] MEDS ORDERED: ONDANSETRON INJ 2 MG/ML 2 ML VIAL IV STA (01:47)
--- NOTE | 2020-01-01 01:51 | Emergency Department Note ---
Impression & Plan Vertigo, Intractable vomiting, Supratherapeutic INR, Acute renal insufficiency ED Provider Note Name: CHERI HERNANDEZ Age: 89 Sex: F Arrives Via: Ambulance Informant: Patient, Nursing ED Provider: Joce Billy MD Chief Complaint: Vertigo Impression: Vertigo Intractable Vomiting Supratherapeutic INR Acute Renal Insufficiency Medical Decision Makin yr old female with several hours vertiginous symptoms and vomiting. She has horizontal nystagmus and no other neuro deficits on arrival thus felt not to be stroke alert candidate, especially given time line is at least 3.5 hours from onset by arrival time and she is on Coumadin. INR is elevated at 4.3 for unknown reason. No bleeding nor indication for lowering INR emergently. She does not appear to have any acute infection and is not septic. EKG OK and Trop negative. Otherwise labs look OK besides some mild renal insufficiency (daughter states patient hardly drinks any fluids). Abdomen soft, non-tender. Lungs clear without shortness of breath nor cough. She was given zofran and meclizine without improvement thus small dose ativan with vast improvement though did get mildly hypoxic and clearly still unsteady. With elevated INR, living along, mild persistent symptoms and requiring benzos to keep symptoms under control I do not feel d/c reasonable. I will note CT head negative and at time of hospitalist eval still pending UA results. I reviewed case with patient's daughter who is an RN and agrees with plan. Prior Medical Record and Triage/Nursing Notes reviewed by Me Additional history obtained from Chart and Daughter (phone) Differentials:Infection, dehydration, metabolic abnormality, hypo/hyperglycemia, electrolyte disturbance, anemia, hypoxia, cardiac sources, intracerebral event, toxicologic, neurologic, as well as other pathologies. Vital Signs: reviewed and remarkable for HTN Interventions: Saline lock, nss bolus, zofran 4mg IV, meclinzine 25mg PO, Ativan 0.25mg IV Labs:Reviewed and remarkable for mild Cr elevation Imaging:X ray results are stated below per my interpretation: Chest: 1 view: No infiltrate, no effusion, normal cardiac border. [facility] Radiologist interpretation reviewed by me: CT head no acute findings EKG:Per My Interpretation: Indication Vertigo: NSR 70 bpm, qtc 462 with 1st degree av block. No Ectopy. No Ischemia. Compared to EKG 09/18/19 the 1st AV block is new Cardiac/Tele Monitoring: Cardiac Monitoring: An Order was placed for continuous cardiac monitoring. The monitor shows a rate of 70 with a normal sinus rhythm. Consults:Dr Devon Toussaint Hospitalist Plan: Disposition:Hospitalization. Condition: Fair Blood pressure:Elevated - Referred to Hospitalist Prescriptions:none PDMP: n/a History of Present Illness:89 / yr old female with history of DMII, PAF, CKD, Depression, HTN, CVA on Coumadin arrives for evaluation of vertiginous symptoms. Onset around 10pm this evening (3.5 hrs [employer]) with spinning vision. Admits she is nauseous, can't walk straight and feels unwell. Mild sinus congestion over last few days. No headache, neck pain, fevers, chills, cp, sob, cough, syncope, back pain, abdominal pain, urinary/bowel symptoms, rashes, nor other symptoms. She has had no falls nor trauma. Denies double vision. States worse with movement, better with staying still though nausea continues even at rest. No history of Vertigo. She has taken no medications for this. She is on coumadin for her DVT in leg previously. Recently finished bactrim for UTI. Notes some ongoing right jaw pain over the last 3 weeks seen by PCP for this. ROS: See above HPI for pertinent positives & negatives. A total of 10 systems reviewed and were otherwise negative. Past Medical History:See Below Past Surgical History:See Below Family History:See Below Social History:See Below Home Medications:See Below Allergies:See Below Vitals:Blood Pressure: 158/74, Pulse 67, RR 18, T 36.6C, O2 91% on RA Physical Exam: GENERAL: Patient is very uncomfortable appearing and in moderate distress. Dry heaving EYES: No scleral icterus, unremarkable pupils. ENT: Mucous membranes moist, no nasal congestion. Right TM normal, left canal cerumen impaction NECK: No masses appreciated, nomeningismus, trachea is midline. RESPIRATORY: No dyspnea. Clear to auscultation and equal bilaterally. No wheeze, no rhonchi. CARDIOVASCULAR: Regular rate and rhythm.No murmurs, rubs, gallops appreciated. GASTROINTESTINAL: Abdomen soft, non-tender, no peritonitis.Bowel sounds positive.No masses appreciated. BACK: No midline tenderness, no CVA tenderness EXTREMITIES: Normal motion all extremities, no cyanosis, no edema. NEUROLOGIC: Alert and oriented, no acute motor or sensory deficits, no focal weakness, cranial nerves grossly intact. SKIN: No rash, no jaundice, no diaphoresis. PSYCH: Appropriate GCS: 15 ED Course: Times/Reassessments: Discussed with POA Daughter Alta Welch SUSHMA (lives in [place]) at 2:45am regarding plan and she agrees with further monitoring in hospital. [phone] Joce Billy MD Past Med/Surg History Social History Smoking Status: Never smoker Second Hand Exposure: No; Hx Alcohol Use: No Hx Substance Use: No Preferred Language: Wolof Communication Ability: Effective Project Admin Required: No Beliefs That Will Affect Care: None marital status: / Current Living Situation: Alone Other Information That Helps Us Care for You: No Feels Safe at Home: Yes Safety Concerns: Feels Safe At This Time Allergies Allergies Allergy/AdvReac Type Severity Reaction Status Date / Time hydrocodone Allergy Unknown . Verified 01/01/20 02:48 Penicillins Allergy Unknown . Verified 01/01/20 02:48 vancomycin AdvReac Intermediate rash on Unverified 01/01/20 02:48 head Home Meds Home Medications Medication Instructions Recorded Confirmed Vitamin D3 4,000 unit PO QAM 07/20/18 01/01/20 allopurinol 100 mg PO BID 07/20/18 01/01/20 insulin asp prt-insulin aspart 40 unit SUBCUT QDD 07/20/18 01/01/20 [Novolog Mix 70-30FlexPen U-100] insulin asp prt-insulin aspart 46 unit SUBCUT QDB 07/20/18 01/01/20 [Novolog Mix 70-30FlexPen U-100] lansoprazole 30 mg PO QAM 07/20/18 01/01/20 rosuvastatin 10 mg PO QAM 07/20/18 01/01/20 warfarin 5 mg PO QPM 07/20/18 01/01/20 PreserVision AREDS-2 1 tab PO QAM 08/08/18 01/01/20 linagliptin 5 mg PO QAM 08/08/18 01/01/20 losartan 50 mg PO QAM 08/08/18 01/01/20 aspirin 81 mg PO QAM 09/01/18 01/01/20 furosemide 40 mg PO QAM 09/01/18 01/01/20 amlodipine 5 mg PO QAM 03/05/19 01/01/20 cyanocobalamin (vitamin B-12) 100 mcg PO QAM 03/05/19 01/01/20 [Vitamin B-12] isosorbide mononitrate 60 mg PO QAM 03/05/19 01/01/20 sotalol 80 mg PO BID 03/05/19 01/01/20 magnesium oxide 400 mg PO QAM 08/19/19 01/01/20 metoprolol succinate 25 mg PO QAM 08/19/19 01/01/20 Results & Data (ED) Vital Signs Vital Signs - 24 hr 01/01/20 01:45 01/01/20 02:13 01/01/20 02:28 Temperature 36.6 C Temperature Source Oral Pulse Rate 68 Pulse Rate [Bilateral Apical] 73 71 Respiratory Rate 20 20 18 Respiratory Effort / Characteristics Non-Labored Respiratory Depth Normal Blood Pressure 185/92 H Blood Pressure [Right Arm] 147/104 H 176/83 H Blood Pressure Mean 123 Blood Pressure Mean [Right Arm] 118 114 Blood Pressure Position Lying Pulse Oximetry 95 98 91 Oxygen Delivery Method Room Air Room Air Room Air Sepsis Recent Fever Within 48 Hours No Sepsis New/Unexplained Change in Mental Status No Sepsis Action Taken by Nursing No Action Required 01/01/20 02:37 01/01/20 03:42 Temperature Temperature Source Pulse Rate Pulse Rate [Bilateral Apical] 67 67 Respiratory Rate 18 Respiratory Effort / Characteristics Respiratory Depth Blood Pressure Blood Pressure [Right Arm] 158/74 H 155/80 H Blood Pressure Mean Blood Pressure Mean [Right Arm] 102 105 Blood Pressure Position Pulse Oximetry 91 97 Oxygen Delivery Method Room Air Room Air Sepsis Recent Fever Within 48 Hours Sepsis New/Unexplained Change in Mental Status Sepsis Action Taken by Nursing Laboratory Data Result diagrams: 01/01/20 01:57 01/01/20 01:57 Lab Results 01/01/20 01/01/20 01/01/20 Range/Units 01:57 01:57 01:57 WBC 10.30 (4.8-10.8) K/uL RBC 3.44 L (4.2-5.4) M/uL Hgb 11.1 L (12.0-16.0) g/dL Hct 34.7 L (37-47) % MCV 100.9 H (80-100) fL MCH 32.3 (25-34) pg MCHC 32.0 (32-36) g/dL RDW Std Deviation 52.0 H (36.4-46.3) fL RDW Coeff of Anupam 14.1 (11.5-14.5) % Plt Count 218 (130-400) K/uL MPV 9.4 (7.4-10.4) fL Immature Gran % (Auto) 0.1 % Neut % (Auto) 67.0 % Lymph % (Auto) 22.7 % [place] % (Auto) 8.3 % Eos % (Auto) 1.8 % Baso % (Auto) 0.1 % Neut # (Auto) 6.90 H (1.4-6.5) K/uL Lymph # (Auto) 2.34 (1.2-3.4) K/uL [place] # (Auto) 0.85 H (0.11-0.59) K/uL Eos # (Auto) 0.19 (0-0.5) K/uL Baso # (Auto) 0.01 (0-0.2) K/uL Immature Gran # (Auto) 0.01 (0.00-0.02) K/uL PT 42.3 H (9.0-12.0) Seconds INR 4.3 H (0.9-1.1) Sodium 140 (136-145) mmol/L Potassium 5.0 (3.5-5.1) mmol/L Chloride 111 H (98-107) mmol/L Carbon Dioxide 24 (21-32) mmol/L Anion Gap 5.0 (3-11) BUN 54 H (7-18) mg/dl Creatinine 1.83 H (0.6-1.2) mg/dl Est Cr Clr Drug Dosing 22.0 ml/min Est GFR ( Amer) 28.3 Est GFR (Non-Af Amer) 24.4 BUN/Creatinine Ratio 29.5 H (10-20) Glucose 127 H (70-99) mg/dl Calcium 8.7 (8.5-10.1) mg/dl Magnesium 2.0 (1.8-2.4) mg/dl Troponin I < 0.015 (0-0.045) ng/ml Administered Medications Sodium Chloride (Nss 1000ml) 1,000 mls @ 75 mls/hr IV .[id number] DALI Stop: 01/01/20 18:33 Last Admin: 01/01/20 05:56 Dose: 75 mls/hr Documented by: [id number] Discontinued Medications Lorazepam (Ativan) 0.25 mg in 0.5 mls @ 0.5 mls/min IV NOW STA Stop: 01/01/20 02:17 Last Admin: 01/01/20 02:22 Dose: 0.5 mls/min Documented by: [id number] Sodium Chloride (Nss 1000ml) 500 mls @ 999 mls/hr IV .Q31M ONE Stop: 01/01/20 03:19 Last Infusion: 01/01/20 03:26 Dose: 0 mls/hr Documented by: [id number] Admin: 01/01/20 02:54 Dose: 999 mls/hr Documented by: [id number] Meclizine HCl (Antivert) 25 mg PO NOW STA Stop: 01/01/20 01:48 Last Admin: 01/01/20 02:04 Dose: 25 mg Documented by: [id number] Ondansetron HCl (Zofran) 4 mg IV NOW STA Stop: 01/01/20 01:48 Last Admin: 01/01/20 02:04 Dose: 4 mg Documented by: [id number] Discharge Plan Visit Data *Final* Discharge Date/Time: 01/01/20 04:41 Chief Complaint: Nausea Stated Complaint: CONGESTION/NAUSEA/VOMITING/LIGHTHEADED ED Provider: Joce Billy Discharge Problem: Vertigo, Intractable vomiting, Supratherapeutic INR, Acute renal insufficiency Patient Disposition: Admitted As Inpatient Discharge Instructions Interventions: ED Discharge Assessment Last Done: 01/01/20 04:41 Discharge Problem: Intractable vomiting Qualifiers: Vomiting type: unspecified Nausea presence: with nausea Qualified Code(s): R11.2 - Nausea with vomiting, unspecified
[2020-01-01 02:08] LABS: Basophils # (auto) 0.01 K/uL (0-0.2); Basophils % (auto) 0.1 %; Eosinophils # (auto) 0.19 K/uL (0-0.5); Eosinophils % (auto) 1.8 %; Hematocrit (blood only) 34.7 % (37-47); Hemoglobin 11.1 g/dL (12.0-16.0); Immature Granulocytes # (auto) 0.01 K/uL (0.00-0.02); Immature Granulocytes % (auto) 0.1 %; Lymphocytes # (auto) 2.34 K/uL (1.2-3.4); Lymphocytes % (auto) 22.7 %; Mean Corpuscular Hemoglobin 32.3 pg (25-34); Mean Corpuscular Volume 100.9 fL (80-100); Mean Platelet Volume 9.4 fL (7.4-10.4); Monocytes # (auto) 0.85 K/uL (0.11-0.59); Monocytes % (auto) 8.3 %; Platelet Count 218 K/uL (130-400); RDW Coefficient of Variation 14.1 % (11.5-14.5); Red Blood Count 3.44 M/uL (4.2-5.4)
[2020-01-01] MEDS ORDERED: LORazepam 0.25 MG/0.5 ML VIAL IV STA (02:16)
[2020-01-01 02:25] LABS: BUN Creatinine Ratio 29.5 (10-20); Blood Urea Nitrogen 54 mg/dl (7-18); Calcium 8.7 mg/dl (8.5-10.1); Carbon Dioxide 24 mmol/L (21-32); Chloride 111 mmol/L (98-107); Est GFR (African American) 28.3; Est GFR (Non-African American) 24.4; Glucose 127 mg/dl (70-99); Sodium 140 mmol/L (136-145)
[2020-01-01 02:27] LABS: INR 4.3 (0.9-1.1); Prothrombin Time 42.3 Seconds (9.0-12.0)
[2020-01-01 02:30] LABS: Troponin I < 0.015 ng/ml (0-0.045)
[2020-01-01] MEDS ORDERED: SODIUM CHLORIDE 0.9% 1000ML 500 ML IV ONE (02:49)
[2020-01-01] MEDS ORDERED: NITROGLYCERIN SL 0.4 MG/TAB TAB SL PRN (05:14)
[2020-01-01] MEDS ORDERED: ONDANSETRON INJ 2 MG/ML 2 ML VIAL IV PRN (05:14)
[2020-01-01] MEDS ORDERED: POLYETHYLENE (MIRALAX) 17 GM PACK PO PRN (05:14)
[2020-01-01] MEDS ORDERED: SODIUM CHLORIDE 0.9% 1000ML 1,000 ML IV SCH ×2 (05:14→19:45)
[2020-01-01] MEDS ORDERED: MECLIZINE 12.5 MG TAB PO PRN (05:14)
[2020-01-01] MEDS ORDERED: ACETAMINOPHEN 325 MG TAB PO PRN (05:14)
[2020-01-01] MEDS ORDERED: DEXTROSE 50% 50 ML SYRINGE IV PRN (05:45)
[2020-01-01] MEDS ORDERED: CARBOHYDRATES FOR HYPOGLYCEMIA PO PRN (05:45)
[2020-01-01] MEDS ORDERED: GLUCOSE 40% GEL 15 GM TUBE PO PRN (05:45)
[2020-01-01] MEDS ORDERED: GLUCOSE 10 TABS/TUBE PO PRN (05:45)
[2020-01-01] MEDS ORDERED: GLUCAGON FOR INJ 1 MG VIAL IM PRN (05:45)
--- NOTE | 2020-01-01 05:53 | History and Physical Report ---
DATE OF ADMISSION: 01/01/2020 CHIEF COMPLAINT: Dizziness and nausea. HISTORY OF PRESENT ILLNESS: This is a 89-year-old female with past medical history significant for type 2 diabetes, hyperlipidemia, gout, hyperparathyroidism, nocturnal hypoxemia, atrial fibrillation, hypertension, mild diastolic dysfunction, presence of IVC filter, GERD, obesity, fatty liver disease, vitamin D deficiency, chronic kidney disease stage III, general osteoarthrosis, peripheral edema, macular degeneration, history of breast cancer, history of DVT, anxiety, who lives alone, ambulates with a walker. She presents because of dizziness and nausea. The patient states last night around 10:30 p.m. she suddenly felt dizzy like room spinning and was nauseous and vomited several episodes and she was brought in by ambulance and she received Antivert Zofran and Ativan IV, she is feeling better. Currently she is much better. No other complaints. Denies any headache. Vision is okay. Somewhat hard of hearing. No runny nose, no sore throat. Appetite is okay. No difficulty swallowing, no shortness of breath, no chest pain. Nausea is improved now. No abdominal pain. Normal bowel and bladder movements. Has chronic lower extremity edema . No fevers, no cough. ALLERGIES: PENICILLINS, VANCOMYCIN, CHARY INHIBITORS. PAST MEDICAL HISTORY: As mentioned above. PAST SURGICAL HISTORY: Left breast lesion excision, cardiac catheterization, IVC filter placement, laparoscopic cholecystectomy, breast needle biopsy, left partial mastectomy, removal of oviduct, tonsillectomy, removal of cataract lens, total abdominal hysterectomy with removal of tubes. MEDICATIONS: The patient is on allopurinol 100 mg p.o. b.i.d., amlodipine 5 mg p.o. a.m., aspirin 81 mg p.o. a.m., vitamin B12 100 mcg p.o. a.m., Lasix 40 mg p.o. a.m., NovoLog mix 70/30 46 units with breakfast and 40 units with dinner, isosorbide mononitrate 60 mg in a.m., lisinopril 30 mg p.o. a.m., linagliptin 5 mg p.o. a.m., losartan 50 mg p.o. a.m., magnesium oxide 400 mg p.o. a.m., metoprolol succinate 25 mg p.o. a.m., PreserVision AREDS 2 one tablet p.o. a.m., rosuvastatin 10 mg p.o. a.m., sotalol 80 mg p.o. b.i.d., vitamin D 4000 units p.o. a.m., warfarin 5 mg p.o. q.p.m. FAMILY HISTORY: Significant for mother had leukemia at age of 82; father had diabetes and heart disorder; brother has heart disorder. SOCIAL HISTORY: , lives alone. One of the sons lives close by. No smoking, no alcohol, no drug use. REVIEW OF SYSTEMS: As per HPI. Rest of the review of systems negative. PHYSICAL EXAMINATION: GENERAL: The patient is somewhat of moderate build, not in acute distress. VITAL SIGNS: Temperature 36.6, pulse 67, respiratory rate 18, blood pressure 155/80, oxygen 97% on room air. HEENT: No pallor, no icterus. Pupils equal, round, reactive. NECK: No JVD, no neck masses. CARDIOVASCULAR: S1, S2 heard, regular rate and rhythm, no murmur, no gallop. RESPIRATORY SYSTEM: Normal AP diameter. No accessory muscle use. No wheezing, no crackles. ABDOMEN: Soft, bowel sounds present, nontender. No distention. CENTRAL NERVOUS SYSTEM: Cranial nerves II-XII grossly intact. Nonfocal. EXTREMITIES: Bilateral lower extremity edema present. Chronic skin changes seen. LABORATORY DATA: WBC 10.3, hemoglobin 11.1, hematocrit 34.7, platelets 218. PT 42.3, INR 4.3. Sodium 140, potassium 5, chloride 111, CO2 of 24, BUN 54, creatinine 1.8, serum glucose 127, calcium 8.7, magnesium 2. Troponin I less than 0.015. IMAGING DATA: CT of the head preliminary report, no acute findings. ASSESSMENT AND PLAN: This is an 89-year-old female who presents with dizziness and nausea. 1. Dizziness and nausea, somewhat vertigo-like symptoms. Received meclizine, Zofran, and Ativan in the ER, currently resolved, much improved. We will also check for orthostatics and place on gentle fluids and monitor in the med tele. 2. Acute kidney injury on chronic kidney disease stage III. Baseline creatinine around 1.4, currently with creatinine of 1.8. Gentle fluids. Follow the labs in a.m. 3. History of atrial fibrillation, rate controlled with Toprol-XL and sotalol.On Coumadin. INR is supratherapeutic at 4.3, will hold the Coumadin. 4. History of diabetes. Continue home NovoLog mix. Placed on insulin sliding scale. Hold linagliptin. Monitor the blood sugars. 5. Hypertension, on losartan, Toprol-XL, amlodipine, Imdur, Lasix. We will monitor the blood pressure. 6. Gout, on allopurinol. 7. History of deep venous thrombosis, status post IVC filter. 8. Hyperlipidemia, on statin. 9. Gastroesophageal reflux disease, on esomeprazole. 10. Chronic diastolic congestive heart failure, on Lasix, which she will continue. Getting gentle fluids. Will monitor for volume overload. 11. Deep venous thrombosis prophylaxis. INR is supratherapeutic. DISPOSITION: Observe in med tele. PT and OT prior to discharge. Social service to help with discharge planning. CODE STATUS: Level 1 full code as per my discussion with the patient. LADARIUS
--- NOTE | 2020-01-01 06:34 | CT Scan Report ---
CT OF THE HEAD WITHOUT CONTRAST CLINICAL HISTORY: acute spinning COMPARISON STUDY: Head CT September 18, 2019. MRI of the brain July 20, 2018. CT DOSE: 537.48 mGy.cm TECHNIQUE: Helical axial images of the head were obtained without IV contrast. Automated exposure con trol was utilized for the study. A dose lowering technique was utilized adhering to the principles o f ALARA. FINDINGS: No acute intracranial hemorrhage, midline shift or mass effect is present. The ventricular system is unremarkable. The basilar cisterns are patent. No extra-axial collections are present. Ther e are no findings to suggest acute dural sinus thrombosis or acute territorial infarct. No significan t calvarial abnormalities are present. Visualized portions of the sinuses and mastoid air cells are c lear. IMPRESSION: No acute intracranial findings. ACT 112: Negative or not required by law. Electronically signed by: Chaparro Leigh M.D. 01/01/2020 6:33 AM
[2020-01-01] MEDS ORDERED: INSULIN 70% ASPART PROTAMINE/30% ASPART SC SCH ×2 (07:30→16:30)
[2020-01-01 07:54] LABS: Basophils # (auto) 0.01 K/uL (0-0.2); Basophils % (auto) 0.1 %; Eosinophils # (auto) 0.09 K/uL (0-0.5); Eosinophils % (auto) 1.3 %; Hematocrit (blood only) 32.4 % (37-47); Hemoglobin 10.5 g/dL (12.0-16.0); Immature Granulocytes # (auto) 0.01 K/uL (0.00-0.02); Immature Granulocytes % (auto) 0.1 %; Lymphocytes # (auto) 1.87 K/uL (1.2-3.4); Lymphocytes % (auto) 27.4 %; Mean Corpuscular Hemoglobin 32.6 pg (25-34); Mean Corpuscular Hgb Conc 32.4 g/dL (32-36); Mean Corpuscular Volume 100.6 fL (80-100); Mean Platelet Volume 9.5 fL (7.4-10.4); Monocytes % (auto) 7.3 %; Neutrophils # (auto) 4.35 K/uL (1.4-6.5); Neutrophils % (auto) 63.8 %; Platelet Count 198 K/uL (130-400); RDW Coefficient of Variation 14.1 % (11.5-14.5); RDW Standard Deviation 51.7 fL (36.4-46.3); Red Blood Count 3.22 M/uL (4.2-5.4); White Blood Count 6.83 K/uL (4.8-10.8)
[2020-01-01 08:04] LABS: Estimated Average Glucose 174 mg/dl; Hemoglobin A1C 7.7 % (4.5-5.6)
[2020-01-01 08:14] LABS: INR 4.3 (0.9-1.1); Prothrombin Time 41.9 Seconds (9.0-12.0)
[2020-01-01 08:24] LABS: BUN Creatinine Ratio 29.5 (10-20); Creatinine Clr Calc Pharmacy 23.7 ml/min; Est GFR (African American) 31.3; Potassium 5.6 mmol/L (3.5-5.1)
[2020-01-01] MEDS: INSULIN ASPART 100 UNITS/ML 3 ML PEN SC SCH ×4 (08:42→20:45)
[2020-01-01] MEDS: CHOLECALCIFEROL 1,000 UNITS 25 MCG TAB PO SCH (08:43)
[2020-01-01] MEDS: ASPIRIN 81 MG ECTAB PO SCH (08:43)
[2020-01-01] MEDS: CEROVITE ADV FORMULA TAB PO SCH (08:43)
[2020-01-01] MEDS: AMLODIPINE BESYLATE 5 MG TAB PO SCH (08:43)
[2020-01-01] MEDS: SOTALOL HCL 80 MG TAB PO SCH ×2 (08:44→20:37)
[2020-01-01] MEDS: allopurinoL 100 MG TAB PO SCH ×2 (08:44→20:37)
[2020-01-01] MEDS: ROSUVASTATIN CALCIUM 10 MG TAB PO SCH (08:44)
[2020-01-01] MEDS: FUROSEMIDE 40 MG TAB PO SCH (08:44)
[2020-01-01] MEDS: PANTOprazole 40 MG TAB PO SCH (08:44)
[2020-01-01] MEDS: CYANOCOBALAMIN (VITAMIN B-12) 100 MCG TABLET PO SCH (08:44)
[2020-01-01] MEDS: MAGNESIUM OXIDE 400 MG TAB PO SCH (08:45)
[2020-01-01] MEDS: METOPROLOL SUCC 25MG EXT REL TAB PO SCH (08:45)
[2020-01-01] MEDS: ISOSORBIDE MONO EXTENDED REL 60 MG TABCR PO SCH (08:45)
[2020-01-01] MEDS ORDERED: LOSARTAN POTASSIUM 50 MG TAB PO SCH (09:00)
--- NOTE | 2020-01-01 16:15 | Communication Note ---
Date of Service: January 01, 2020 Patient admitted earlier today With dizzy spells and vertigo Symptoms completely resolved Noted to have hypoglycemic episode blood sugar 77 Patient's. Insulin 70/30 kept on hold A1c 7.7 suggested of too tight control of BSG in the elderly person which can lead frequent hypoglycemic episodes Pharmacy consulted for glycemic management Home insulin regimen has to be adjusted prior to discharge Acute renal failure: Secondary to poor p.o. intake given IV fluids Hold Lasix, hold losartan Hyperkalemia: Possibly due to above Hold losartan Lab in a.m. History of paroxysmal A. fib on beta-mc, Coumadin on hold for elevated INR Kristi Moreno MD
[2020-01-01] MEDS ORDERED: PHARMACY GLYCEMIC MGMT CONSULT PRN (17:41)
[2020-01-02 00:49] LABS: Appearance Urine Clear (Clear); Bacteria Urine Automated Negative (Negative); Bilirubin Urine Negative (Negative); Blood Urine Negative (Negative); Cast Urine Automated 0 /lpf (0-5); Color Urine Yellow; Glucose Urine UA Negative (Negative); Ketones Urine Negative (Negative); Leukocyte Esterase Urine Negative (Negative); Nitrite Urine Negative (Negative); Protein Urine 1+ (Negative); RBC Urine Automated 0-4 /hpf (0-4); Specific Gravity Urine 1.015 (1.000-1.030); Urobilinogen Urine Negative (Negative)
[2020-01-02] MEDS ORDERED: INSULIN ASPART 100 UNITS/ML 3 ML PEN SC SCH (02:00)
[2020-01-02] MEDS ORDERED: INSULIN HUMAN NPH SC SCH (08:00)
[2020-01-02] MEDS: METOPROLOL SUCC 25MG EXT REL TAB PO SCH (08:12)
[2020-01-02] MEDS: allopurinoL 100 MG TAB PO SCH ×2 (08:12→20:30)
[2020-01-02] MEDS: ROSUVASTATIN CALCIUM 10 MG TAB PO SCH (08:12)
[2020-01-02] MEDS: CYANOCOBALAMIN (VITAMIN B-12) 100 MCG TABLET PO SCH (08:13)
[2020-01-02] MEDS: PANTOprazole 40 MG TAB PO SCH (08:13)
[2020-01-02] MEDS: CHOLECALCIFEROL 1,000 UNITS 25 MCG TAB PO SCH (08:13)
[2020-01-02] MEDS: MAGNESIUM OXIDE 400 MG TAB PO SCH (08:13)
[2020-01-02] MEDS: ISOSORBIDE MONO EXTENDED REL 60 MG TABCR PO SCH (08:14)
[2020-01-02] MEDS: AMLODIPINE BESYLATE 5 MG TAB PO SCH (08:14)
[2020-01-02] MEDS: SOTALOL HCL 80 MG TAB PO SCH ×2 (08:14→20:30)
[2020-01-02] MEDS: ASPIRIN 81 MG ECTAB PO SCH (08:14)
[2020-01-02] MEDS: CEROVITE ADV FORMULA TAB PO SCH (08:14)
[2020-01-02] MEDS: INSULIN ASPART 100 UNITS/ML 3 ML PEN SC SCH ×4 (08:15→20:30)
[2020-01-02 08:34] LABS: INR 3.5 (0.9-1.1); Prothrombin Time 34.7 Seconds (9.0-12.0)
[2020-01-02 08:54] LABS: BUN Creatinine Ratio 25.6 (10-20); Creatinine Clr Calc Pharmacy 22.2 ml/min; Potassium 5.4 mmol/L (3.5-5.1)
--- NOTE | 2020-01-02 13:14 | Hospitalist Progress Note ---
Date of Service January 02, 2020 Assessment & Plan (1) Dizziness: 89 year old female with history of A fib, CHF Diastolic type, DM 2, HTN, HLD, gout, nocturnal hypoxemia, DVT s/p IVC filter placement presenting with dizziness and nausea. 1. Dizziness and nausea, somewhat vertigo-like symptoms. - reports left vision changes this morning - CT head: no acute process check Brain MRI to r/o CVA 2. Acute kidney injury on chronic kidney disease stage III. - crea 1.7 received IV fluids back to baseline K 5.4 monitor PRP 3. History of atrial fibrillation, rate controlled with Toprol-XL and sotalol.On Coumadin. - INR 3.5 hold coumadin 4. History of diabetes. Continue home NovoLog mix. Placed on insulin sliding scale. Hold linagliptin. Monitor the blood sugars. - Pharmacy on board BSGs within acceptable range 5. Hypertension, on losartan, Toprol-XL, amlodipine, Imdur, Lasix. We will monitor the blood pressure. - monitor BP 6. Gout, on allopurinol. 7. History of deep venous thrombosis, status post IVC filter. 8. Hyperlipidemia, on statin. 9. Gastroesophageal reflux disease, on esomeprazole. 10. Chronic diastolic congestive heart failure - on the dry side - hold Lasix 11. Deep venous thrombosis prophylaxis. INR is supratherapeutic. Disposition PT recommends return home anticipate d/c home when medically stable Admission and Anticipated Discharge Date Admission Date: January 01, 2020 Subjective ff up for dizziness seen resting in bedside chair, comfortable states she feels ok overall no recurrence of dizziness reported left vision changes this morning- "roof seemed to be moving", lasted about 10 seconds reported right ear fullness, ringing this morning, resolved no chest pain, dyspnea, palpitations no other symptoms Review of Systems Review of Systems: All systems reviewed & are unremarkable except as noted in HPI & below Physical Exam Physical Exam: General- oriented x 3, not in distress, speaks in sentences with no effort or accessory muscle use Head- atraumatic Eyes- PERRL, EOMI, anicteric ENT- oropharynx clear Neck- supple, no JVD, no adenopathy, no thyromegaly; carotids +2/2, no bruits appreciated Lungs- clear to auscultation bilaterally, no rales/wheezes Heart- normal rate, regular rhythm; no murmur, no gallop, no rub appreciated Abdomen- normal bowel sounds, nondistended, soft, nontender, no masses or hepatosplenomegaly Extremities- trace pretibial edema, no calf tenderness; peripheral pulses intact Neuro- alert, oriented x 3; CN 2-12 grossly intact; motor 5/5 bilaterally;sensation 100% on all extremities; no other gross focal neurologic deficits Skin- warm & dry Results & Data Results & Data ([facility]) Vital Signs (Past 12 Hours) Vital Signs Temp Pulse Pulse Resp BP Pulse Ox 01/02/20 11:22 36.5 C 70 16 161/85 H 95 01/02/20 07:48 36.5 C 72 16 145/76 H 92 01/02/20 07:32 69 01/02/20 04:14 36.7 C 69 18 138/74 94 Laboratory Results Laboratory Results - last 24 hr 01/01/20 01/01/20 01/01/20 16:24 20:22 23:36 PT INR Sodium Potassium Chloride Carbon Dioxide Anion Gap BUN Creatinine Est Cr Clr Drug Dosing Est GFR ( Amer) Est GFR (Non-Af Amer) BUN/Creatinine Ratio Glucose POC Glucose 77 122 H Calcium Urine Color Yellow Urine Appearance Clear Urine pH 5.0 Ur Specific Newman 1.015 Urine Protein 1+ H Urine Glucose (UA) Negative Urine Ketones Negative Urine Blood Negative Urine Nitrite Negative Urine Bilirubin Negative Urine Urobilinogen Negative Ur Leukocyte Esterase Negative Urine WBC (Auto) 1-5 Urine RBC (Auto) 0-4 U Hyaline Cast (Auto) 0 U Epithel Cells (Auto) 10-20 H Urine Bacteria (Auto) Negative 01/02/20 01/02/20 01/02/20 02:35 07:19 07:19 PT 34.7 H INR 3.5 H Sodium 142 Potassium 5.4 H Chloride 112 H Carbon Dioxide 26 Anion Gap 4.0 BUN 46 H Creatinine 1.79 H Est Cr Clr Drug Dosing 22.2 Est GFR ( Amer) 29.0 Est GFR (Non-Af Amer) 25.0 BUN/Creatinine Ratio 25.6 H Glucose 160 H POC Glucose 149 H Calcium 9.0 Urine Color Urine Appearance Urine pH Ur Specific Newman Urine Protein Urine Glucose (UA) Urine Ketones Urine Blood Urine Nitrite Urine Bilirubin Urine Urobilinogen Ur Leukocyte Esterase Urine WBC (Auto) Urine RBC (Auto) U Hyaline Cast (Auto) U Epithel Cells (Auto) Urine Bacteria (Auto) 01/02/20 01/02/20 07:29 11:28 PT INR Sodium Potassium Chloride Carbon Dioxide Anion Gap BUN Creatinine Est Cr Clr Drug Dosing Est GFR ( Amer) Est GFR (Non-Af Amer) BUN/Creatinine Ratio Glucose POC Glucose 152 H 160 H Calcium Urine Color Urine Appearance Urine pH Ur Specific Newman Urine Protein Urine Glucose (UA) Urine Ketones Urine Blood Urine Nitrite Urine Bilirubin Urine Urobilinogen Ur Leukocyte Esterase Urine WBC (Auto) Urine RBC (Auto) U Hyaline Cast (Auto) U Epithel Cells (Auto) Urine Bacteria (Auto)
[2020-01-02] MEDS ORDERED: LORazepam 0.5 MG TAB PO SCH (14:15)
--- NOTE | 2020-01-02 14:16 | Pharmacy Report ---
Pharmacy Glycemic Short Note 2 - Date of Service January 02, 2020 - Glycemic Short BSG Results (Last 24 hours): 01/01/20 01/01/20 01/02/20 16:24 20:22 02:35 Glucose POC Glucose 77 122 H 149 H 01/02/20 01/02/20 01/02/20 07:19 07:29 11:28 Glucose 160 H POC Glucose 152 H 160 H OUTPATIENT ANTIDIABETIC REGIMEN: * Novolog mix 70/30 46 units with breakfast, 40 units with dinner * A1c 7.7% 12/31 ASSESSMENT: * Ms. Perkins admitted with vomiting, tolerating some food today * Initiated NPH + aspart, reduced dose this AM ~20% from home dose, will continue * Initiated novolog parameters weight based stress of 2, continue for now PLAN FOR INPATIENT GLYCEMIC CONTROL: * Hold outpatient oral diabetes medications * Basal insulin * NPH scale 22-26 QAM, 15-22 with dinner * Bolus insulin * NovoLog per scale ACHS or Q6hrs while NPO * Goal Range: Low 110 mg/dL - High 140 mg/dL * Correction Factor: 25 mg/dL/unit * Nutritional / Prandial insulin per carb ratio of 1 unit per 9 grams CHO consumed
[2020-01-02] MEDS: FLUTICASONE PROPIONATE NA SPR 16 GM BTL SCH (17:22)
[2020-01-02] MEDS: INSULIN HUMAN NPH SC SCH (17:25)
--- NOTE | 2020-01-02 20:33 | Magnetic Resonance Report ---
MRI OF THE BRAIN WITHOUT CONTRAST CLINICAL HISTORY: dizziness, left vision changes, r/o CVA COMPARISON STUDY: MRI of the brain July 20, 2018. Head CT January 01, 2020. TECHNIQUE: Utilizing a 1.5 Nidia magnet and dedicated coil, multiplanar, multiecho imaging of the bra in was performed without IV contrast. FINDINGS: There are no foci of restricted diffusion to suggest acute infarct. No acute intracranial h emorrhage, midline shift or mass effect is present. Ventricular system is normal. The basilar cistern s are patent. There are no extra axial collections. Flow-voids for the major intracranial vessels are present. No intracranial masses identified on this unenhanced examination. The appearance of the bra in is similar to MRI of July 10, 2018. Mild white matter T2 hyperintense foci suggest small vessel disease. This exam is mildly compromised by motion artifact. IMPRESSION: No acute intracranial findings. No significant change since MRI of July 20, 2018. ACT 112: Negative or not required by law. Electronically signed by: Chaparro Leigh M.D. 01/02/2020 8:32 PM
[2020-01-03 07:20] LABS: BUN Creatinine Ratio 27.4 (10-20); Calcium 9.2 mg/dl (8.5-10.1); Creatinine Clr Calc Pharmacy 27.5 ml/min; Est GFR (African American) 37.4; Est GFR (Non-African American) 32.3; Potassium 5.2 mmol/L (3.5-5.1)
[2020-01-03 07:27] LABS: INR 2.5 (0.9-1.1); Prothrombin Time 24.9 Seconds (9.0-12.0)
[2020-01-03] MEDS ORDERED: INSULIN HUMAN NPH SC SCH ×2 (07:30)
[2020-01-03] MEDS: ASPIRIN 81 MG ECTAB PO SCH (08:09)
[2020-01-03] MEDS: CYANOCOBALAMIN (VITAMIN B-12) 100 MCG TABLET PO SCH (08:10)
[2020-01-03] MEDS: ROSUVASTATIN CALCIUM 10 MG TAB PO SCH (08:10)
[2020-01-03] MEDS: ISOSORBIDE MONO EXTENDED REL 60 MG TABCR PO SCH (08:11)
[2020-01-03] MEDS: SOTALOL HCL 80 MG TAB PO SCH (08:11)
[2020-01-03] MEDS: CEROVITE ADV FORMULA TAB PO SCH (08:11)
[2020-01-03] MEDS: PANTOprazole 40 MG TAB PO SCH (08:11)
[2020-01-03] MEDS: allopurinoL 100 MG TAB PO SCH (08:11)
[2020-01-03] MEDS: CHOLECALCIFEROL 1,000 UNITS 25 MCG TAB PO SCH (08:12)
[2020-01-03] MEDS: METOPROLOL SUCC 25MG EXT REL TAB PO SCH (08:12)
[2020-01-03] MEDS: AMLODIPINE BESYLATE 5 MG TAB PO SCH (08:13)
[2020-01-03] MEDS: MAGNESIUM OXIDE 400 MG TAB PO SCH (08:13)
[2020-01-03] MEDS: FLUTICASONE PROPIONATE NA SPR 16 GM BTL SCH (08:14)
[2020-01-03] MEDS: INSULIN ASPART 100 UNITS/ML 3 ML PEN SC SCH ×3 (08:16→17:49)
--- NOTE | 2020-01-03 08:19 | Electrocardiogram Report ---
Test Reason : Blood Pressure : / mmHG Vent. Rate : 070 BPM Atrial Rate : 070 BPM P-R Int : 214 ms QRS Dur : 088 ms QT Int : 428 ms P-R-T Axes : 040 018 015 degrees QTc Int : 462 ms Sinus rhythm with 1st degree A-V block Otherwise normal ECG When compared with ECG of 18-SEP-2019 07:57, AK interval has increased Confirmed by Mike Sosa ([id number]) on 01/03/2020 8:19:07 AM Referred By: REFERRED SELF Confirmed By:Mike Sosa
--- NOTE | 2020-01-03 14:06 | Hospitalist Progress Note ---
Date of Service January 03, 2020 Assessment & Plan (1) Dizziness: 89 year old female with history of A fib, CHF Diastolic type, DM 2, HTN, HLD, gout, nocturnal hypoxemia, DVT s/p IVC filter placement presenting with dizziness and nausea. 1. Dizziness and nausea, somewhat vertigo-like symptoms. - CT head: no acute process Brain MRI: no acute CVA - likely from vertigo - resolved, no recurrence during admission Meclizine PRN prescribed 2. Acute kidney injury on chronic kidney disease stage III. - crea 1.7 received IV fluids back to baseline K 5.2 - resume Lasix - repeat BMP on ff up with PCP next week 3. History of atrial fibrillation, rate controlled with Toprol-XL and sotalol.On Coumadin. - INR supratherapeutic on admission- 4.3 coumadin held on discharge day INR 2.5 - reduce coumadin to 5mg m/w/f, 3mg other days will inform coumadin clinic ff up with coumadin clinic as per their advice 4. History of diabetes. Continue home NovoLog mix. Placed on insulin sliding scale. Hold linagliptin. Monitor the blood sugars. - noted to have hypoglycemia while admitted, insulin adjusted - a1c 7.7 - resume home regimen ff up as outpatient 5. Hypertension - resume losartan, Toprol-XL, amlodipine, Imdur, Lasix. 6. Gout, on allopurinol. 7. History of deep venous thrombosis, status post IVC filter. - on coumadin 8. Hyperlipidemia - on statin. 9. Gastroesophageal reflux disease - on esomeprazole. 10. Chronic diastolic congestive heart failure - resume Lasix Disposition d/c home with home health services ff up with PCP in 1 week ff up with Coumadin Clinic as scheduled Admission and Anticipated Discharge Date Admission Date: January 01, 2020 Subjective ff up for dizziness seen resting in bed, comfortable, in good spirits states she feels better overall back to her baseline denies recurrence of dizziness no changes with vision no focal neuro deficits denies chest pain, palpitations, dizziness no other symptoms states she is ready and would like to be discharged Review of Systems Review of Systems: All systems reviewed & are unremarkable except as noted in HPI & below Physical Exam Physical Exam: General- oriented x 3, not in distress, speaks in sentences with no effort or accessory muscle use Eyes- anicteric Neck- no JVD Lungs- clear breath sounds bilaterally, no rales/wheezes Heart- normal rate, irregularly irregular rhythm; no murmurs Abdomen- normal bowel sounds, nondistended, soft, nontender Extremities- no pretibial edema, no calf tenderness Neuro- alert, oriented x 3; no gross focal neurologic deficits Skin- warm & dry Results & Data Results & Data ([facility]) Vital Signs (Past 12 Hours) Vital Signs Temp Pulse Pulse Pulse Resp BP Pulse Ox 01/03/20 13:14 37.6 C H 79 74 18 154/84 H 94 01/03/20 07:59 37.6 C H 74 18 154/84 H 94 01/03/20 07:05 70 Laboratory Results Laboratory Results - last 24 hr 01/02/20 01/02/20 01/03/20 16:52 20:24 06:45 PT 24.9 H INR 2.5 H Sodium Potassium Chloride Carbon Dioxide Anion Gap BUN Creatinine Est Cr Clr Drug Dosing Est GFR ( Amer) Est GFR (Non-Af Amer) BUN/Creatinine Ratio Glucose POC Glucose 130 H 152 H Calcium 01/03/20 01/03/20 01/03/20 06:45 07:47 11:26 PT INR Sodium 143 Potassium 5.2 H Chloride 112 H Carbon Dioxide 27 Anion Gap 4.0 BUN 40 H Creatinine 1.45 H D Est Cr Clr Drug Dosing 27.5 Est GFR ( Amer) 37.4 Est GFR (Non-Af Amer) 32.3 BUN/Creatinine Ratio 27.4 H Glucose 116 H POC Glucose 121 H 177 H Calcium 9.2
[2020-01-03] MEDS ORDERED: WARFARIN SOD 3 MG TAB PO ONE (14:30)
[2020-01-03] MEDS: FUROSEMIDE 40 MG TAB PO SCH (14:36)
--- NOTE | 2020-01-03 14:45 | Discharge Summary ---
Date of Service January 03, 2020 Admission HPI Per Admitting Provider CHIEF COMPLAINT: Dizziness and nausea. HISTORY OF PRESENT ILLNESS: This is a 89-year-old female with past medical history significant for type 2 diabetes, hyperlipidemia, gout, hyperparathyroidism, nocturnal hypoxemia, atrial fibrillation, hypertension, mild diastolic dysfunction, presence of IVC filter, GERD, obesity, fatty liver disease, vitamin D deficiency, chronic kidney disease stage III, general osteoarthrosis, peripheral edema, macular degeneration, history of breast cancer, history of DVT, anxiety, who lives alone, ambulates with a walker. She presents because of dizziness and nausea. The patient states last night around 10:30 p.m. she suddenly felt dizzy like room spinning and was nauseous and vomited several episodes and she was brought in by ambulance and she received Antivert Zofran and Ativan IV, she is feeling better. Currently she is much better. No other complaints. Denies any headache. Vision is okay. Somewhat hard of hearing. No runny nose, no sore throat. Appetite is okay. No difficulty swallowing, no shortness of breath, no chest pain. Nausea is improved now. No abdominal pain. Normal bowel and bladder movements. Has chronic lower extremity edema . No fevers, no cough. Principal Diagnosis DIZZINESS LIKELY SECONDARY TO BENIGN POSITIONAL VERTIGO Discharge Exam General- oriented x 3, not in distress, speaks in sentences with no effort or accessory muscle use Eyes- anicteric Neck- no JVD Lungs- clear breath sounds bilaterally, no rales/wheezes Heart- normal rate, irregularly irregular rhythm; no murmurs Abdomen- normal bowel sounds, nondistended, soft, nontender Extremities- no pretibial edema, no calf tenderness Neuro- alert, oriented x 3; no gross focal neurologic deficits Skin- warm & dry Discharge Data Allergies Allergy/AdvReac Type Severity Reaction Status Date / Time hydrocodone Allergy Unknown . Verified 01/01/20 02:48 Penicillins Allergy Unknown . Verified 01/01/20 02:48 vancomycin AdvReac Intermediate rash on Unverified 01/01/20 02:48 head Consultations 01/01/20 02:58 ED Decision to Admit Stat 01/01/20 05:14 Consult Case Management - Discharge Planning Routine Ordered Studies 01/01/20 01:47 CT head/brain wo con Urgent FINDINGS: No acute intracranial hemorrhage, midline shift or mass effect is present. The ventricular system is unremarkable. The basilar cisterns are patent. No extra-axial collections are present. There are no findings to suggest acute dural sinus thrombosis or acute territorial infarct. No significant calvarial abnormalities are present. Visualized portions of the sinuses and mastoid air cells are clear. IMPRESSION: No acute intracranial findings. 01/02/20 13:05 MR brain wo con Routine COMPARISON STUDY: MRI of the brain July 20, 2018. Head CT January 01, 2020. TECHNIQUE: Utilizing a 1.5 Nidia magnet and dedicated coil, multiplanar, multiecho imaging of the brain was performed without IV contrast. FINDINGS: There are no foci of restricted diffusion to suggest acute infarct. No acute intracranial hemorrhage, midline shift or mass effect is present. Ventricular system is normal. The basilar cisterns are patent. There are no extra axial collections. Flow-voids for the major intracranial vessels are present. No intracranial masses identified on this unenhanced examination. The appearance of the brain is similar to MRI of July 10, 2018. Mild white matter T2 hyperintense foci suggest small vessel disease. This exam is mildly compromised by motion artifact. IMPRESSION: No acute intracranial findings. No significant change since MRI of July 20, 2018. Hospital Course (1) Dizziness: 89 year old female with history of A fib, CHF Diastolic type, DM 2, HTN, HLD, gout, nocturnal hypoxemia, DVT s/p IVC filter placement presenting with dizziness and nausea. 1. Dizziness and nausea, likely secondary to Benign Positional Vertigo - CT head: no acute process Brain MRI: no acute intracranial finding - dizziness likely from vertigo - resolved, no recurrence during admission Meclizine PRN prescribed 2. Acute kidney injury on chronic kidney disease stage III. - crea 1.7 received IV fluids crea back to baseline K 5.2 - resume Lasix - repeat BMP on ff up with PCP next week 3. History of atrial fibrillation - rate controlled with Toprol-XL and sotalol On Coumadin - INR supratherapeutic on admission- 4.3 Coumadin held on discharge day INR 2.5 - reduce coumadin to 5mg m/w/f, 3mg other days will inform coumadin clinic ff up with coumadin clinic as per their advice 4. History of diabetes - noted to have hypoglycemia while admitted, insulin adjusted - a1c 7.7 - resume home regimen ff up as outpatient 5. Hypertension - resume losartan, Toprol-XL, amlodipine, Imdur, Lasix. 6. Gout, on allopurinol. 7. History of deep venous thrombosis, status post IVC filter. - on coumadin 8. Hyperlipidemia - on statin. 9. Gastroesophageal reflux disease - on esomeprazole. 10. Chronic diastolic congestive heart failure - resume Lasix Disposition d/c home with home health services ff up with PCP in 1 week ff up with Coumadin Clinic as scheduled Total Time Total Time Spent Total Time Spent (In Minutes): 50 minutes Discharge Plan Discharge Items Patient Disposition: Home - Home Health Services Reason For Visit: DIZZINESS Discharge Diagnosis: DIZZINESS LIKELY SECONDARY TO VERTIGO Activity: Resume your previous activity Activity Comment: GRADUALLY TOLERATED Lifting: Wait until after follow-up appointment Exercise/Sports: Wait until after follow-up appointment Driving/Machine Use: NO DRIVING UNTIL RE-EVALUATED AND ALLOWED BY PRIMARY CARE PHYSICIAN Non-emergency contact: Primary Care Provider Call non-emergency contact if: you have any medication questions, your symptoms worsen and you have a fever Follow-up/Referrals: Noelle Purcell MD [Primary Care Provider] - 01/10/20 12:00 pm (01/10/2020 12:00 PM Provider Noelle Purcell MD Department Internal Medicine [facility] ) Diet: Heart Healthy Addtl Attending Provider Instructions: YOUR NEW MEDICATION IS: MECLIZINE- as needed for dizziness - no driving while taking Meclizine CHANGE COUMADIN DOSE TO 5 MG THREE TIMES A WEEK (TUE, TUE, TUE) AND 3 MG FOUR TIMES A WEEK (TUESDAY, TUESDAY, TUESDAY, TUESDAY). THE COUMADIN CLINIC WILL BE CALLING YOU FOR AN APPOINTMENT SOON. CALL PRIMARY CARE PHYSICIAN OR RETURN TO THE ER IMMEDIATELY IF WITH WORSENING OF SYMPTOMS. FOLLOW UP WITH DR. PURCELL OUTLINED ABOVE. Who to Call and When: Medical Emergencies: Call 911 immediately if you experience any of the following warning signs and symptoms of Stroke: Sudden numbness or weakness of the face, arm or leg, especially on one side of the body Sudden confusion, trouble speaking or understanding Sudden trouble seeing in one or both eyes Sudden trouble walking, dizziness, loss of balance or coordination Sudden severe headache with no cause Do not delay calling 911 if you experience any warning signs or symptoms of a stroke. Delay in seeking medical attention may affect what treatments can be given to you. Pending Studies at Discharge: Yes Studies:: repeat blood work (basic metabolic panel) on ff up with Primary Care Physician next week Stand-Alone Forms: My [facility], Smoking Cessation Medications and DC Order Prescriptions: New warfarin [Coumadin] 5 mg tablet 5 mg PO UD Qty: 30 RF: 1 warfarin 3 mg tablet 3 mg PO UD Qty: 30 RF: 0 meclizine 12.5 mg Tablet 12.5 mg PO TID PRN (Reason: dizziness) Qty: 20 RF: 1 fluticasone propionate 50 mcg/actuation [place],Suspension 2 spray NA DAILY 7 Days Qty: 1 RF: 0 Continued allopurinol 100 mg Tablet 100 mg PO BID RF: 0 lansoprazole 30 mg Capsule,Delayed Release(Dr/Ec) 30 mg PO QAM RF: 0 insulin asp prt-insulin aspart [Novolog Mix 70-30FlexPen U-100] 100 unit/mL (70-30) Insulin Pen 46 unit SUBCUT QDB RF: 0 rosuvastatin 10 mg Tablet 10 mg PO QAM RF: 0 Vitamin D3 4,000 unit Capsule 4,000 unit PO QAM RF: 0 insulin asp prt-insulin aspart [Novolog Mix 70-30FlexPen U-100] 100 unit/mL (70-30) Insulin Pen 40 unit SUBCUT QDD RF: 0 PreserVision AREDS-2 191-799-83-1 vo-[id number]-[id number]-mg Capsule 1 tab PO QAM RF: 0 losartan 50 mg Tablet 50 mg PO QAM RF: 0 linagliptin 5 mg Tablet 5 mg PO QAM RF: 0 magnesium oxide 400 mg (241.3 mg magnesium) tablet 400 mg PO QAM RF: 0 metoprolol succinate 25 mg tablet extended release 24 hr 25 mg PO QAM RF: 0 aspirin 81 mg Tablet,Delayed Release (Dr/Ec) 81 mg PO QAM RF: 0 furosemide 40 mg Tablet 40 mg PO QAM RF: 0 amlodipine 2.5 mg Tablet 5 mg PO QAM RF: 0 isosorbide mononitrate 60 mg Tablet Extended Release 24 Hr 60 mg PO QAM RF: 0 sotalol 80 mg Tablet 80 mg PO BID RF: 0 cyanocobalamin (vitamin B-12) [Vitamin B-12] 100 mcg Tablet 100 mcg PO QAM RF: 0 Discontinued warfarin 5 mg Tablet 5 mg PO QPM RF: 0 Discharge Orders: Discharge Order (Routine); Ordered 01/03/20 Ordered By: Denny Amador/Other Patient Handouts: Managing Type 2 Diabetes Admission Data Admit Date/Time: 01/01/20 03:57 Attending Provider: Denny Cross Admit Provider: Keaton Osorio Primary Care Provider: Noelle Purcell Other Providers: Keaton Osorio ; Kristi Moreno Other Interventions: Discharge Summary Assessment (RN) Last Done: 01/03/20 13:14 DC Date/Time DO NOT enter until pt leaves facility: 01/03/20 19:00
[2020-01-03] MEDS: INSULIN HUMAN NPH SC SCH (17:50)
== END 2020-01-03 19:00 | disposition home health service (06) ==
LOC: ED 01:32 → 2N 01:32 → SUATTDRO 03:57 → 2N 04:41

== ENCOUNTER 2021-10-17 12:07 | Inpatient (IN) ==
[2021-10-17] MEDS ORDERED: SODIUM CHLORIDE 0.9% 500 ML IV STA (12:22)
--- NOTE | 2021-10-17 12:38 | Emergency Department Note ---
Impression & Plan GOOD (acute kidney injury) ADMIT ED Provider Note HPI: The patient is an 89-year-old female with history of type 2 diabetes, on insulin, atrial fibrillation, on Coumadin, who presents the emergency department with chief complaint of diarrhea. Patient states that she has had some symptoms for about the past 2 weeks, she had some nausea and vomiting that is now resolve d but she has had some diarrhea over the past several days it has been relatively severe. Patient states she feels that she is dehydrated, her physician sent her in thinking she may need some IV fluids according to the patient. Arrival here to the ED the patient is in no acute distress, she is yoli rt and oriented, she is hemodynamically stable on arrival. She denies any abdominal pain with her diarrhea. States the diarrhea has been nonbloody in nature. ROS: -GI: Diarrhea *10 point review systems was conducted and is otherwise negative unless stated above *Outpatient medications and allergy history reviewed PE: General: Alert, NAD HEENT: Normocephalic, atraumatic Eyes: Extraocular eye movement is intact, no scleral erythema Pulmonary: Clear to auscultation bilaterally, no wheezing Cardio: Regular rate and rhythm GI: Abdomen is soft, nontender : No suprapubic tenderness MSK: No evidence of trauma or malformation of the extremities, no edema Skin: No evidence of rash Neuro: Alert, no focal deficits Psychiatric: Cooperative personnel monitor: - An order was placed for continuous cardiac monitoring - Patient was noted to be in sinus rhythm with rate of 60 Medical Decision Making: The patient is a 89-year-old female who lives alone, presents the emergency department chief complaint of diarrhea and generalized weakness. Patient reportedly has had symptoms now for several weeks, initially started with vomiting, developed some diarrhea over the past several days. Arrival here to the ED she is in no acute distress, denies any abdominal pain but states she has had relatively severe diarrhea over the past several days. IV was established, lab work obtained, patient is noted to have a leukocytosis greater than 15,000, CT imaging of the abdomen pelvis shows evidence of no acute abdominal pathology. In addition to the leukocytosis, patient's lab work does show evidence of acute kidney injury with creatinine of 1.98, patient's daughter who is an RN called from [place], I did have a discussion with her, she does have concern that the patient has been having some increasing difficulty with her symptoms at home, [place] and she is concerned about the patient potentially not being able to take care of herself. In addition, she apparently has been on some antibiotics recently for dental infection, stool PCR will be sent to rule out C. difficile colitis. Given her lab work I do have concern that she may be suffering from a viral gastroenteritis which is now causing acute kidney injury and dehydration, I did discuss the case with the on-call hospitalist for [facility], patient will be accepted for further management. Diagnosis: 1. Diarrhea, acute 2. Leukocytosis 3. Acute kidney injury with elevated creatinine Disposition: Admission Magen Nelson DO Emergency Medicine Past Med/Surg History Medical History (Updated 10/17/21 @ 15:47 by Magen Nelson DO) CKD (chronic kidney disease), stage III DM type 2 (diabetes mellitus, type 2) DVT (deep venous thrombosis) (01/06/14) Fatty liver disease, nonalcoholic Gout Heart murmur MR, TR, VSD Hiatal hernia History of breast cancer History of DVT (deep vein thrombosis) History of squamous cell carcinoma of skin Hypertension Macular degeneration New onset a-fib PAF (paroxysmal atrial fibrillation) Renal insufficiency Surgical History Status post insertion of inferior vena caval filter Status post partial mastectomy left breast 2009 Dr. Mccoy Family History Mother Leukemia Father Diabetes Heart disease Prostate cancer Brother Valvular heart disease Other Family history non-contributory Social History Smoking Status: Never smoker Second Hand Exposure: No; Hx Alcohol Use: No Hx Substance Use: No Preferred Language: Frisian Communication Ability: Effective Circuit Breaker Mechanic Required: No Beliefs That Will Affect Care: None marital status: / Current Living Situation: Alone Feels Safe at Home: Yes Assistive Devices: Cane, Denture - Upper, Denture - Lower, Glasses and Walker Allergies Allergies Allergy/AdvReac Type Severity Reaction Status Date / Time hydrocodone Allergy Unknown . Verified 10/17/21 13:45 Penicillins Allergy Unknown . Verified 10/17/21 13:45 vancomycin AdvReac Intermediate rash on Unverified 10/17/21 13:45 head Home Meds Home Medications Medication Instructions Recorded Confirmed allopurinol 100 mg tablet 100 mg PO AMHS 07/20/18 10/17/21 insulin aspar prot-insulin aspart 40 unit SUBCUT QDD 07/20/18 10/17/21 100 unit/mL (70-30) subcutaneous pen (Novolog Mix 70-30FlexPen U-100) insulin aspar prot-insulin aspart 49 unit SUBCUT QDB 07/20/18 10/17/21 100 unit/mL (70-30) subcutaneous pen (Novolog Mix 70-30FlexPen U-100) lansoprazole 30 mg capsule,delayed 30 mg PO QAM 07/20/18 10/17/21 release (Prevacid) rosuvastatin 10 mg tablet 10 mg PO QAM 07/20/18 10/17/21 linagliptin 5 mg tablet (Tradjenta) 5 mg PO QAM 08/08/18 10/17/21 losartan 50 mg tablet 50 mg PO QA 08/08/18 10/17/21 vit C 250 mg-vit E 90 mg-zinc 40 1 tab PO QA 08/08/18 10/17/21 mg-copper 1 [id number] capsule (PreserVision AREDS-2) aspirin 81 mg tablet,delayed 81 mg PO QAM 09/01/18 10/17/21 release furosemide 40 mg tablet 40 mg PO SUTUTHSA 09/01/18 10/17/21 cyanocobalamin (vitamin B-12) 100 100 mcg PO QAM 03/05/19 10/17/21 mcg tablet (Vitamin B-12) isosorbide mononitrate 60 mg 60 mg PO QAM 03/05/19 10/17/21 tablet,extended release 24 hr sotalol 80 mg tablet 80 mg PO AMHS 03/05/19 10/17/21 magnesium oxide 400 mg (241.3 mg 400 mg PO QAM 08/19/19 10/17/21 magnesium) tablet metoprolol succinate 25 mg 25 mg PO QPM 08/19/19 10/17/21 tablet,extended release 24 hr cholecalciferol (vitamin D3) 50 100 mcg PO DAILY 03/27/21 10/17/21 mcg (2,000 unit) tablet (Vitamin D3) furosemide 40 mg tablet 80 mg PO MOWEFR 03/27/21 10/17/21 warfarin 5 mg tablet 2.5 mg PO 3XWK 03/27/21 10/17/21 warfarin 5 mg tablet 5 mg PO 4XWK 03/27/21 10/17/21 acetaminophen 500 mg tablet 500 mg PO Q8H PRN 10/17/21 10/17/21 ondansetron HCl 4 mg tablet 4 mg PO Q8H PRN 10/17/21 10/17/21 prednisone 20 mg tablet 20 mg PO UD 10/17/21 10/17/21 Previous Rx's Medication Instructions Recorded meclizine 12.5 mg tablet 12.5 mg PO TID PRN #20 tab 01/03/20 Results & Data (ED) Vital Signs Vital Signs - 24 hr 10/17/21 12:12 10/17/21 12:22 10/17/21 14:00 Temperature 36.4 C L Temperature Source Oral Pulse Rate 72 67 Pulse Rate [Apical] 68 Respiratory Rate 20 15 Respiratory Effort / Characteristics Non-Labored Spontaneous Non-Labored Spontaneous Respiratory Depth Normal Normal Blood Pressure 142/57 H Blood Pressure [Right Arm] 140/70 Blood Pressure Mean 85 Blood Pressure Mean [Right Arm] 93 Pulse Oximetry 94 94 97 Oxygen Delivery Method Room Air Room Air Room Air Sepsis Recent Fever Within 48 Hours No Sepsis New/Unexplained Change in Mental Status No Sepsis Action Taken by Nursing No Action Required 10/17/21 15:12 Temperature Temperature Source Pulse Rate Pulse Rate [Apical] 61 Respiratory Rate 17 Respiratory Effort / Characteristics Non-Labored Respiratory Depth Blood Pressure Blood Pressure [Right Arm] 167/78 H Blood Pressure Mean Blood Pressure Mean [Right Arm] 107 Pulse Oximetry 96 Oxygen Delivery Method Room Air Sepsis Recent Fever Within 48 Hours Sepsis New/Unexplained Change in Mental Status Sepsis Action Taken by Nursing Laboratory Data Result diagrams: 10/17/21 12:50 10/17/21 12:50 Lab Results 10/17/21 10/17/21 10/17/21 Range/Units 12:50 12:50 12:50 WBC 15.19 H (4.8-10.8) K/uL RBC 4.12 L (4.2-5.4) M/uL Hgb 13.3 (12.0-16.0) g/dL Hct 39.7 (37-47) % MCV 96.4 (80-100) fL MCH 32.3 (25-34) pg MCHC 33.5 (32-36) g/dL RDW Std Deviation 46.1 (36.4-46.3) fL RDW Coeff of Anupam 13.0 (11.5-14.5) % Plt Count 232 (130-400) K/uL MPV 10.2 (7.4-10.4) fL Immature Gran % (Auto) 0.6 % Neut % (Auto) 76.9 % Lymph % (Auto) 12.1 % Phelps % (Auto) 8.8 % Eos % (Auto) 1.6 % Baso % (Auto) 0.0 % Neut # (Auto) 11.68 H (1.4-6.5) K/uL Lymph # (Auto) 1.84 (1.2-3.4) K/uL Phelps # (Auto) 1.33 H (0.11-0.59) K/uL Eos # (Auto) 0.25 (0-0.5) K/uL Baso # (Auto) 0.00 (0-0.2) K/uL Immature Gran # (Auto) 0.09 H (0.00-0.02) K/uL PT Cancelled INR Cancelled Sodium 135 L (136-145) mmol/L Potassium 4.4 (3.5-5.1) mmol/L Chloride 98 (98-107) mmol/L Carbon Dioxide 30 (21-32) mmol/L Anion Gap 7 (3-11) BUN 60 H (6-23) mg/dl Creatinine 1.98 H (0.6-1.2) mg/dl Est Cr Clr Drug Dosing 18.7 ml/min Est GFR ( Amer) 25.3 ml/min Est GFR (Non-Af Amer) 21.9 ml/min BUN/Creatinine Ratio 30.3 H (10-20) Glucose 196 H (70-99(Fasting)) mg/dl Lactate (0.4-2.0) mmol/L Calcium 8.9 (8.5-10.1) mg/dl Total Bilirubin 1.0 (0.2-1.0) mg/dl AST 19 (13-39) U/L ALT 30 (7-52) U/L Alkaline Phosphatase 58 (34-104) U/L Total Protein 6.1 (6.0-8.3) gm/dl Albumin 3.2 L (3.4-5.0) gm/dl Globulin 2.9 (2.5-4.0) gm/dl Albumin/Globulin Ratio 1.1 (0.9-2) Lipase 37 (11-82) U/L 10/17/21 10/17/21 Range/Units 13:27 14:46 WBC (4.8-10.8) K/uL RBC (4.2-5.4) M/uL Hgb (12.0-16.0) g/dL Hct (37-47) % MCV (80-100) fL MCH (25-34) pg MCHC (32-36) g/dL RDW Std Deviation (36.4-46.3) fL RDW Coeff of Anupam (11.5-14.5) % Plt Count (130-400) K/uL MPV (7.4-10.4) fL Immature Gran % (Auto) % Neut % (Auto) % Lymph % (Auto) % Phelps % (Auto) % Eos % (Auto) % Baso % (Auto) % Neut # (Auto) (1.4-6.5) K/uL Lymph # (Auto) (1.2-3.4) K/uL Phelps # (Auto) (0.11-0.59) K/uL Eos # (Auto) (0-0.5) K/uL Baso # (Auto) (0-0.2) K/uL Immature Gran # (Auto) (0.00-0.02) K/uL PT 36.1 H INR 3.6 H Sodium (136-145) mmol/L Potassium (3.5-5.1) mmol/L Chloride (98-107) mmol/L Carbon Dioxide (21-32) mmol/L Anion Gap (3-11) BUN (6-23) mg/dl Creatinine (0.6-1.2) mg/dl Est Cr Clr Drug Dosing ml/min Est GFR ( Amer) ml/min Est GFR (Non-Af Amer) ml/min BUN/Creatinine Ratio (10-20) Glucose (70-99(Fasting)) mg/dl Lactate 2.1 H* (0.4-2.0) mmol/L Calcium (8.5-10.1) mg/dl Total Bilirubin (0.2-1.0) mg/dl AST (13-39) U/L ALT (7-52) U/L Alkaline Phosphatase (34-104) U/L Total Protein (6.0-8.3) gm/dl Albumin (3.4-5.0) gm/dl Globulin (2.5-4.0) gm/dl Albumin/Globulin Ratio (0.9-2) Lipase (11-82) U/L Administered Medications Discontinued Medications Acetaminophen (Acetaminophen 1000 Mg/100 Ml Iv) 1,000 mg IV ONCE ONE Stop: 10/17/21 14:12 Last Admin: 10/17/21 14:19 Dose: 1,000 mg Documented by: [id number] Sodium Chloride (Nss) 500 mls @ 999 mls/hr IV .Q31M STA Stop: 10/17/21 12:52 Last Infusion: 10/17/21 14:09 Dose: 0 mls/hr Documented by: [id number] Admin: 10/17/21 12:53 Dose: 999 mls/hr Documented by: [id number] Sodium Chloride (Nss 1000ml) 250 mls @ 999 mls/hr IV .Q16M ONE Stop: 10/17/21 15:12 Last Infusion: 10/17/21 15:19 Dose: 0 mls/hr Documented by: [id number] Admin: 10/17/21 15:03 Dose: 999 mls/hr Documented by: [id number] Sodium Chloride (Nss 1000ml) 250 mls @ 999 mls/hr IV .Q16M ONE Stop: 10/17/21 15:18 Last Admin: 10/17/21 15:12 Dose: 999 mls/hr Documented by: [id number] Ioversol (Optiray 320 100ml) 94 ml IV ONCE ONE Stop: 10/17/21 14:37 Last Admin: 10/17/21 14:36 Dose: 94 ml Documented by: [id number] Imaging Data Radiologist's Impression: Abdomen/Pelvis CT 10/17/21 12:35 CT abd pelvis IV con only CLINICAL HISTORY: Diarrhea TECHNIQUE: Helical axial images of the abdomen and pelvis were obtained and displayed. Automated dose lowering techniques and/or adjustment according to patient size were utilized for this exam. This exam was performed with intravenous contrast. CT DOSE: 435.13 mGy.cm COMPARISON: Comparison is made to CT abdomen pelvis 06/09/2015 FINDINGS: Lower chest: Cardiomegaly is seen. Bilateral atelectasis is seen. Liver: Unremarkable. No focal lesions are seen. Gallbladder and biliary tree: Patient is status post cholecystectomy. No intra- or extrahepatic biliary ductal dilation. Pancreas: Unremarkable, no focal lesions. Spleen: Unremarkable. Adrenals: Unremarkable. Kidneys and ureters: Previously noted renal cysts are stable. Bladder: Unremarkable. Reproductive organs: Unremarkable. Bowel: Diverticulosis is seen without evidence of diverticulitis. Lymph nodes Retroperitoneal: Unremarkable. Mesenteric: Unremarkable. Pelvic: Unremarkable. Peritoneum: Normal. Vessels: Atherosclerotic calcifications are seen. An IVC filter is seen. Abdominal wall: Unremarkable. Bones: Degenerative changes in the visualized spine. IMPRESSION: No acute abnormalities. ACT 112: Negative or not required by law. Electronically signed by: Heriberto Cueva M.D. 10/17/2021 3:09 PM Discharge Plan Visit Data Chief Complaint: Diarrhea Stated Complaint: DIARRHEA ED Provider: Magen Nelson Discharge Problem: GOOD (acute kidney injury) Forms Stand Alone Forms: [facility] Prescriptions Prescriptions: No Action allopurinol 100 mg Tablet 100 mg PO AMHS RF: 0 lansoprazole [Prevacid] 30 mg Capsule,Delayed Release(Dr/Ec) 30 mg PO QAM RF: 0 insulin asp prt-insulin aspart [Novolog Mix 70-30FlexPen U-100] 100 unit/mL (70-30) Insulin Pen 49 unit SUBCUT QDB RF: 0 rosuvastatin 10 mg Tablet 10 mg PO QAM RF: 0 insulin asp prt-insulin aspart [Novolog Mix 70-30FlexPen U-100] 100 unit/mL (70-30) Insulin Pen 40 unit SUBCUT QDD RF: 0 PreserVision AREDS-2 [id number] Capsule 1 tab PO QAM RF: 0 losartan 50 mg Tablet 50 mg PO QAM RF: 0 Tradjenta 5 mg Tablet 5 mg PO QAM RF: 0 magnesium oxide 400 mg (241.3 mg magnesium) tablet 400 mg PO QAM RF: 0 metoprolol succinate 25 mg tablet extended release 24 hr 25 mg PO QPM RF: 0 meclizine 12.5 mg Tablet 12.5 mg PO TID PRN (Reason: dizziness) Qty: 20 RF: 1 aspirin 81 mg Tablet,Delayed Release (Dr/Ec) 81 mg PO QAM RF: 0 furosemide 40 mg Tablet 40 mg PO SUTUTHSA RF: 0 isosorbide mononitrate 60 mg Tablet Extended Release 24 Hr 60 mg PO QAM RF: 0 sotalol 80 mg Tablet 80 mg PO AMHS RF: 0 cyanocobalamin (vitamin B-12) [Vitamin B-12] 100 mcg Tablet 100 mcg PO QAM RF: 0 furosemide 40 mg tablet 80 mg PO MOWEFR RF: 0 warfarin 5 mg tablet 2.5 mg PO 3XWK RF: 0 warfarin 5 mg tablet 5 mg PO 4XWK RF: 0 cholecalciferol (vitamin D3) [Vitamin D3] 50 mcg (2,000 unit) Tablet 100 mcg PO DAILY RF: 0 ondansetron HCl 4 mg tablet 4 mg PO Q8H PRN (Reason: nausea vomiting) RF: 0 prednisone 20 mg tablet 20 mg PO UD RF: 0 acetaminophen 500 mg Tablet 500 mg PO Q8H PRN (Reason: Pain) RF: 0 Referrals Referrals: Noelle Purcell MD [Primary Care Provider] -
[2021-10-17 13:15] LABS: Eosinophils # (auto) 0.25 K/uL (0-0.5); Eosinophils % (auto) 1.6 %; Hematocrit (blood only) 39.7 % (37-47); Hemoglobin 13.3 g/dL (12.0-16.0); Immature Granulocytes # (auto) 0.09 K/uL (0.00-0.02); Immature Granulocytes % (auto) 0.6 %; Lymphocytes # (auto) 1.84 K/uL (1.2-3.4); Lymphocytes % (auto) 12.1 %; Mean Corpuscular Hemoglobin 32.3 pg (25-34); Mean Corpuscular Hgb Conc 33.5 g/dL (32-36); Mean Corpuscular Volume 96.4 fL (80-100); Mean Platelet Volume 10.2 fL (7.4-10.4); Monocytes # (auto) 1.33 K/uL (0.11-0.59); Monocytes % (auto) 8.8 %; Neutrophils # (auto) 11.68 K/uL (1.4-6.5); Neutrophils % (auto) 76.9 %; Platelet Count 232 K/uL (130-400); RDW Standard Deviation 46.1 fL (36.4-46.3); Red Blood Count 4.12 M/uL (4.2-5.4); White Blood Count 15.19 K/uL (4.8-10.8)
[2021-10-17 13:33] LABS: Albumin Globulin Ratio 1.1 (0.9-2); Albumin Level 3.2 gm/dl (3.4-5.0); BUN Creatinine Ratio 30.3 (10-20); Calcium 8.9 mg/dl (8.5-10.1); Creatinine Clr Calc Pharmacy 18.7 ml/min; Est GFR (African American) 25.3 ml/min; Est GFR (Non-African American) 21.9 ml/min; Globulin 2.9 gm/dl (2.5-4.0); Potassium 4.4 mmol/L (3.5-5.1); Total Protein 6.1 gm/dl (6.0-8.3)
[2021-10-17 13:56] LABS: INR 3.6 (0.9-1.1); Prothrombin Time 36.1 Seconds (9.0-12.0)
[2021-10-17] MEDS ORDERED: ACETAMINOPHEN 1000 MG/100 ML IV IV ONE (14:11)
[2021-10-17] MEDS ORDERED: OPTIRAY 320 100ml IV ONE (14:36)
[2021-10-17] MEDS ORDERED: SODIUM CHLORIDE 0.9% 1000ML 250 ML IV ONE ×2 (14:57→15:03)
--- NOTE | 2021-10-17 15:11 | CT Scan Report ---
CT abd pelvis IV con only CLINICAL HISTORY: Diarrhea TECHNIQUE: Helical axial images of the abdomen and pelvis were obtained and displayed. Automated dose lowering techniques and/or adjustment according to patient size were utilized for this exam. This e xam was performed with intravenous contrast. CT DOSE: 435.13 mGy.cm COMPARISON: Comparison is made to CT abdomen pelvis 06/09/2015 FINDINGS: Lower chest: Cardiomegaly is seen. Bilateral atelectasis is seen. Liver: Unremarkable. No focal lesions are seen. Gallbladder and biliary tree: Patient is status post cholecystectomy. No intra- or extrahepatic bilia ry ductal dilation. Pancreas: Unremarkable, no focal lesions. Spleen: Unremarkable. Adrenals: Unremarkable. Kidneys and ureters: Previously noted renal cysts are stable. Bladder: Unremarkable. Reproductive organs: Unremarkable. Bowel: Diverticulosis is seen without evidence of diverticulitis. Lymph nodes Retroperitoneal: Unremarkable. Mesenteric: Unremarkable. Pelvic: Unremarkable. Peritoneum: Normal. Vessels: Atherosclerotic calcifications are seen. An IVC filter is seen. Abdominal wall: Unremarkable. Bones: Degenerative changes in the visualized spine. IMPRESSION: No acute abnormalities. ACT 112: Negative or not required by law. Electronically signed by: Heriberto Cueva M.D. 10/17/2021 3:09 PM
--- NOTE | 2021-10-17 15:51 | History & Physical Report ---
Date of Service October 17, 2021 Assessment & Plan (1) GOOD (acute kidney injury): Plan: Acute kidney injury on CKD III Baseline creatinine 1.1 Creatinine 1.98 on presentation Likely prerenal, also secondary to medications CT imaging noncontributory Received 2 L of IV fluids while in ED Gentle IV fluids given diastolic heart failure Monitor volume status closely Hold Lasix, losartan, magnesium oxide Avoid nephrotoxic agents as able Bladder scan as needed Urinalysis pending Consider nephrology evaluation if needed Diarrhea Likely secondary to MiraLAX Hold bowel regimen Stool studies to rule out infection IV fluids as above Supratherapeutic INR No bleeding issues INR 3.6 Hold Coumadin today Monitor INR Leukocytosis Lactic acidosis Likely secondary to dehydration Trend lactate levels Leukocytosis likely reactive Urinalysis pending Blood cultures obtained Generalized weakness Fall precautions PT OT Hypertension Likely situational Continue home medications Losartan on hold due to GOOD DM Type II: well controlled Will hold home regimen Last A1c: 7.6 on October 13, 2021 ISS, basal Insulin, Accu checks, Diabetic diet Monitor BGs P. Afib H/O DVT S/P IVC filter Continue metoprolol, sotalol Resume Coumadin as able Monitor INR Chronic diastolic heart failure Resume Lasix as able Monitor volume status GERD Continue PPI DVT Px: Supratherapeutic INR Resume Coumadin as able CODE STATUS Full Code as per my discussion with patient History of Present Illness Chief Complaint: Diarrhea Primary Care Provider: Noelle Purcell MD Patient is an 89-year-old female with history of insulin-dependent diabetes mellitus, atrial fibrillation on chronic anticoagulation with Coumadin, chronic diastolic heart failure, GERD, dyslipidemia, hypertension, macular degeneration, history of deep vein thrombosis s/p IVC filter, gout, secondary hyperparathyroidism, CKD stage III and other medical problems presents with history of diarrhea associated with generalized weakness. 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 Patient at the time had 4 days of nausea, vomiting which resolved. Patient was unsure if she was on an antibiotic course at the time. She has been on MiraLAX daily to help with constipation. Patient has been having diarrhea since 2 to 3 days duration. Patient had multiple bowel movements per day but denies any blood in stools. She continue to take her MiraLAX despite having multiple bowel movements, last dose of MiraLAX was yesterday. She had significant generalized weakness associated with fatigue and has been using walker for ambulation for the last 2 days. She lives alone. Patient is also on diuretics and losartan for CHF, high blood pressure which she takes daily. Denies any history of chest pain, dyspnea, dizziness, cough, fever, chills, fall, headache, nausea, vomiting, abdominal pain, blood in stools, change in appetite, dysuria, hematuria, recent travel, sick contact. Allergies Allergy/AdvReac Type Severity Reaction Status Date / Time hydrocodone Allergy Unknown . Verified 10/17/21 13:45 Penicillins Allergy Unknown . Verified 10/17/21 13:45 vancomycin AdvReac Intermediate rash on Unverified 10/17/21 13:45 head Home Medications Medication Instructions Recorded Confirmed Type allopurinol 100 mg tablet 100 mg PO AMHS 07/20/18 10/17/21 History insulin aspar prot-insulin aspart 30 unit SUBCUT QDD 07/20/18 10/17/21 History 100 unit/mL (70-30) subcutaneous pen (Novolog Mix 70-30FlexPen U-100) insulin aspar prot-insulin aspart 49 unit SUBCUT QDB 07/20/18 10/17/21 History 100 unit/mL (70-30) subcutaneous pen (Novolog Mix 70-30FlexPen U-100) lansoprazole 30 mg capsule,delayed 30 mg PO QAM 07/20/18 10/17/21 History release (Prevacid) rosuvastatin 10 mg tablet 10 mg PO QAM 07/20/18 10/17/21 History linagliptin 5 mg tablet (Tradjenta) 5 mg PO QAM 08/08/18 10/17/21 History losartan 50 mg tablet 50 mg PO QAM 08/08/18 10/17/21 History vit C 250 mg-vit E 90 mg-zinc 40 1 tab PO QAM 08/08/18 10/17/21 History mg-copper 1 [id number] capsule (PreserVision AREDS-2) aspirin 81 mg tablet,delayed 81 mg PO QAM 09/01/18 10/17/21 History release furosemide 40 mg tablet 40 mg PO SUTUTHSA 09/01/18 10/17/21 History cyanocobalamin (vitamin B-12) 100 100 mcg PO QAM 03/05/19 10/17/21 History mcg tablet (Vitamin B-12) isosorbide mononitrate 60 mg 60 mg PO QAM 03/05/19 10/17/21 History tablet,extended release 24 hr sotalol 80 mg tablet 80 mg PO AMHS 03/05/19 10/17/21 History magnesium oxide 400 mg (241.3 mg 400 mg PO QAM 08/19/19 10/17/21 History magnesium) tablet metoprolol succinate 25 mg 25 mg PO QPM 08/19/19 10/17/21 History tablet,extended release 24 hr meclizine 12.5 mg tablet 12.5 mg PO TID PRN #20 tab 01/03/20 10/17/21 Rx cholecalciferol (vitamin D3) 50 100 mcg PO DAILY 03/27/21 10/17/21 History mcg (2,000 unit) tablet (Vitamin D3) furosemide 40 mg tablet 80 mg PO MOWEFR 03/27/21 10/17/21 History warfarin 5 mg tablet 2.5 mg PO 3XWK 03/27/21 10/17/21 History warfarin 5 mg tablet 5 mg PO 4XWK 03/27/21 10/17/21 History acetaminophen 500 mg tablet 500 mg PO Q8H PRN 10/17/21 10/17/21 History fluticasone propionate 50 2 spray INTRANASAL DAILY 10/17/21 10/17/21 History mcg/actuation nasal spray,suspension ondansetron HCl 4 mg tablet 4 mg PO Q8H PRN 10/17/21 10/17/21 History prednisone 20 mg tablet 20 mg PO UD 10/17/21 10/17/21 History Past Med/Surg History Medical History CKD (chronic kidney disease), stage III DM type 2 (diabetes mellitus, type 2) DVT (deep venous thrombosis) (01/06/14) Fatty liver disease, nonalcoholic Gout Heart murmur MR, TR, VSD Hiatal hernia History of breast cancer History of DVT (deep vein thrombosis) History of squamous cell carcinoma of skin Hypertension Macular degeneration New onset a-fib PAF (paroxysmal atrial fibrillation) Renal insufficiency Surgical History Status post insertion of inferior vena caval filter Status post partial mastectomy left breast 2009 Dr. Mccoy Family History Mother Leukemia Father Diabetes Heart disease Prostate cancer Brother Valvular heart disease Other Family history non-contributory Social History Smoking Status: Never smoker Second Hand Exposure: No; Hx Alcohol Use: No Hx Substance Use: No Preferred Language: Slovak Communication Ability: Effective Site Manager Required: No Beliefs That Will Affect Care: None marital status: / Current Living Situation: Alone Feels Safe at Home: Yes Assistive Devices: Cane, Denture - Upper, Denture - Lower, Glasses and Walker Review of Systems Review of Systems: All systems reviewed & are unremarkable except as noted in HPI & below Physical Exam Physical Exam: Physical Exam: Vitals signs as noted above General Appearance:Obese, no apparent distress Head: normocephalic, Atraumatic, +Heating impairment Eyes: normal inspection, EOMI Neck: supple, Trachea midline Respiratory/Chest: Normal breath sounds, CTA, No accessory muscle use Cardiovascular: S1, S2, ? faint murmur Abdomen/GI:Soft, Non tender, Bowel sounds present Extremities/Musculoskeletal:normal inspection, Trace B/L LE edema Neurologic/Psych:AAOX3, grossly no focal neurological deficits Skin: normal color, warm Results & Data Results & Data ([facility]) Vital Signs (Past 12 Hours) Vital Signs Temp Pulse Pulse Resp BP BP Pulse Ox 10/17/21 15:12 61 17 167/78 H 96 10/17/21 14:00 68 15 140/70 97 10/17/21 12:22 67 94 10/17/21 12:12 36.4 C L 72 20 142/57 H 94 Laboratory Results Short CBC 10/17/21 Range/Units 12:50 WBC 15.19 H (4.8-10.8) K/uL Hgb 13.3 (12.0-16.0) g/dL Hct 39.7 (37-47) % Plt Count 232 (130-400) K/uL BMP 10/17/21 12:50 Sodium 135 L Potassium 4.4 Chloride 98 Carbon Dioxide 30 BUN 60 H Creatinine 1.98 H Glucose 196 H Calcium 8.9 Liver Function 10/17/21 Range/Units 12:50 Total Bilirubin 1.0 (0.2-1.0) mg/dl AST 19 (13-39) U/L ALT 30 (7-52) U/L Alkaline Phosphatase 58 (34-104) U/L Albumin 3.2 L (3.4-5.0) gm/dl Diagnostic Findings CT ABD:No acute abnormalities.
[2021-10-17] MEDS ORDERED: ACETAMINOPHEN 325 MG TAB PO PRN (18:16)
[2021-10-17] MEDS ORDERED: GLUCOSE 40% GEL 15 GM TUBE PO PRN (18:16)
[2021-10-17] MEDS ORDERED: DEXTROSE 50% 50 ML SYRINGE IV PRN (18:16)
[2021-10-17] MEDS ORDERED: CARBOHYDRATES FOR HYPOGLYCEMIA PO PRN (18:16)
[2021-10-17] MEDS ORDERED: GLUCAGON FOR INJ 1 MG VIAL SQ PRN (18:16)
[2021-10-17] MEDS ORDERED: ONDANSETRON INJ 2 MG/ML 2 ML VIAL IV PRN (18:16)
[2021-10-17] MEDS ORDERED: GLUCOSE 10 TABS/TUBE PO PRN (18:16)
[2021-10-17] MEDS ORDERED: SODIUM CHLORIDE 0.9% 1000ML 1,000 ML IV SCH (18:16)
[2021-10-17] MEDS: INSULIN ASPART PER UNIT SC SCH ×2 (19:33→20:58)
[2021-10-17 20:14] LABS: Appearance Urine Clear (Clear); Bacteria Urine Automated Negative (Negative); Bilirubin Urine Negative (Negative); Blood Urine 2+ (Negative); Color Urine Yellow; Epithelial Cell Urine Auto 20-30 /lpf (0-5); Glucose Urine UA Negative (Negative); Ketones Urine Negative (Negative); Leukocyte Esterase Urine 2+ (Negative); Nitrite Urine Negative (Negative); Protein Urine 2+ (Negative); RBC Urine Automated 0-4 /hpf (0-4); Specific Gravity Urine 1.034 (1.000-1.030); Urobilinogen Urine Negative (Negative); WBC Urine Automated >30 /hpf (0-5)
[2021-10-17] MEDS: allopurinoL 100 MG TAB PO SCH (20:55)
[2021-10-17] MEDS: METOPROLOL SUCC 25MG EXT REL TAB PO SCH (20:56)
[2021-10-17] MEDS: MAGNESIUM CHLORIDE W/CALCIUM 64MG DELAYED REL TAB PO SCH (20:56)
[2021-10-17] MEDS: SOTALOL HCL 80 MG TAB PO SCH (20:57)
[2021-10-17] MEDS: INSULIN GLARGINE SOLOSTAR 100 UNITS/ML 3 ML PEN SC SCH (20:58)
[2021-10-18 06:28] LABS: INR 2.7 (0.9-1.1); Prothrombin Time 26.8 Seconds (9.0-12.0)
[2021-10-18 06:33] LABS: Eosinophils # (auto) 0.25 K/uL (0-0.5); Hemoglobin 12.3 g/dL (12.0-16.0); Immature Granulocytes # (auto) 0.07 K/uL (0.00-0.02); Immature Granulocytes % (auto) 0.6 %; Lymphocytes # (auto) 1.95 K/uL (1.2-3.4); Lymphocytes % (auto) 15.5 %; Mean Corpuscular Hemoglobin 32.3 pg (25-34); Mean Corpuscular Hgb Conc 33.2 g/dL (32-36); Mean Corpuscular Volume 97.1 fL (80-100); Mean Platelet Volume 10.1 fL (7.4-10.4); Monocytes # (auto) 1.09 K/uL (0.11-0.59); Monocytes % (auto) 8.7 %; Neutrophils # (auto) 9.21 K/uL (1.4-6.5); Neutrophils % (auto) 73.2 %; Platelet Count 221 K/uL (130-400); RDW Coefficient of Variation 13.4 % (11.5-14.5); RDW Standard Deviation 47.8 fL (36.4-46.3); Red Blood Count 3.81 M/uL (4.2-5.4); White Blood Count 12.57 K/uL (4.8-10.8)
[2021-10-18 06:39] LABS: BUN Creatinine Ratio 33.1 (10-20); Calcium 8.2 mg/dl (8.5-10.1); Creatinine Clr Calc Pharmacy 23.3 ml/min; Est GFR (African American) 33.5 ml/min; Est GFR (Non-African American) 28.9 ml/min; Magnesium 2.5 mg/dl (1.7-2.4); Potassium 4.6 mmol/L (3.5-5.1)
[2021-10-18] MEDS: INSULIN ASPART PER UNIT SC SCH ×4 (08:44→20:46)
[2021-10-18] MEDS: INSULIN GLARGINE SOLOSTAR 100 UNITS/ML 3 ML PEN SC SCH (08:45)
[2021-10-18] MEDS: FLUTICASONE PROPIONATE NA SPR 16 GM BTL SCH (08:50)
[2021-10-18] MEDS: CEROVITE ADV FORMULA TAB PO SCH (08:51)
[2021-10-18] MEDS: SOTALOL HCL 80 MG TAB PO SCH ×2 (08:51→20:46)
[2021-10-18] MEDS: ISOSORBIDE MONO EXTENDED REL 60 MG TABCR PO SCH (08:51)
[2021-10-18] MEDS: CHOLECALCIFEROL 1,000 UNITS 25 MCG TAB PO SCH (08:51)
[2021-10-18] MEDS: allopurinoL 100 MG TAB PO SCH ×2 (08:51→20:46)
[2021-10-18] MEDS: ASPIRIN 81 MG ECTAB PO SCH (08:51)
[2021-10-18] MEDS: ROSUVASTATIN CALCIUM 10 MG TAB PO SCH (08:51)
[2021-10-18] MEDS: CYANOCOBALAMIN (B-12) 100 MCG TABLET PO SCH (08:51)
[2021-10-18] MEDS: MAGNESIUM CHLORIDE W/CALCIUM 64MG DELAYED REL TAB PO SCH ×2 (08:51→20:46)
[2021-10-18] MEDS: PANTOprazole 40 MG TAB PO SCH (08:51)
[2021-10-18] MEDS ORDERED: INSULIN ASPART PER UNIT SC STA (11:44)
[2021-10-18] MEDS ORDERED: PHARMACY GLYCEMIC MGMT CONSULT PRN (11:44)
--- NOTE | 2021-10-18 12:32 | Hospitalist Progress Note ---
Date of Service October 18, 2021 Assessment & Plan (1) GOOD (acute kidney injury): Plan: Acute kidney injury on CKD III Review of recent [facility] outpatient, Baseline Cr is 1.3-1.5 Baseline creatinine 1.1 Creatinine 1.98 on presentation Likely prerenal, due to diarrhea and meds (lasix) CT abd and pelvis did not show acute abnormalities Received 2 L of IV fluids while in ED Cr improving to 1.57 Stop IVF Continue to hold Lasix, losartan, magnesium oxide Stop miralax Avoid nephrotoxic agents as able Diarrhea Secondary to MiraLAX Hold bowel regimen Appear to have resolved Supratherapeutic INR No bleeding issues INR 3.6 on presentation INR is 2.7 today Was on Warfarin 2.5mg MW and 5mg other days Resume warfarin at 2.5mg daily Leukocytosis Lactic acidosis Likely secondary to dehydration Trend lactate levels Leukocytosis likely reactive Urinalysis pending Blood cultures obtained Generalized weakness Fall precautions PT OT Hypertension Likely situational Continue home medications Losartan on hold due to GOOD DM Type II: well controlled Will hold home regimen Last A1c: 7.6 on October 13, 2021 ISS, basal Insulin, Accu checks, Diabetic diet Monitor BGs P. Afib H/O DVT S/P IVC filter Continue metoprolol, sotalol Resume Coumadin as able Monitor INR Chronic diastolic heart failure Will hold Lasix for today Monitor volume status GERD Continue PPI DVT Px: Warfarin CODE STATUS Full Code as per my discussion with patient Admission and Anticipated Discharge Date Admission Date: October 17, 2021 Subjective Patient seen and examined Patient reports no diarrhea today Denied any dizziness, headache Denied nausea, vomiting, abd pain Denied cough, chest pain, shortness of breath Denied fever, chills Denied dysuria, frequency, hematuria Physical Exam Constitutional: + well hydrated; no acute distress Eyes: PERRL, conjunctivae normal, anicteric sclerae ENMT: external ear and nose normal, oropharynx normal Respiratory: normal respiratory effort, lungs clear to auscultation Cardiovascular: RRR S1 S2 Gastrointestinal (Abdomen): normal bowel sounds, soft, nontender, no hepatosplenomegaly Musculoskeletal: No pedal edema Neurologic: PERRL, EOMI, accommodation nl, no face palsy, no dysarthria Psychiatric: A+Ox3, euthymic affect Results & Data Results & Data ([facility]) Vital Signs (Past 12 Hours) Vital Signs Temp Pulse Pulse Resp BP Pulse Ox 05/15/22 12:14 67 10/18/21 11:05 36.8 C 72 18 117/70 94 10/18/21 08:07 36.8 C 71 18 161/82 H 95 10/18/21 07:36 65 10/18/21 03:02 37 C 74 18 172/82 H 94 10/18/21 00:38 59 L Laboratory Results Abnormal lab results 10/17/21 10/17/21 10/17/21 Range/Units 12:50 12:50 13:27 WBC 15.19 H (4.8-10.8) K/uL RBC 4.12 L (4.2-5.4) M/uL RDW Std Deviation (36.4-46.3) fL Neut # (Auto) 11.68 H (1.4-6.5) K/uL [place] # (Auto) 1.33 H (0.11-0.59) K/uL Immature Gran # (Auto) 0.09 H (0.00-0.02) K/uL PT 36.1 H (9.0-12.0) Seconds INR 3.6 H (0.9-1.1) Sodium 135 L (136-145) mmol/L BUN 60 H (6-23) mg/dl Creatinine 1.98 H (0.6-1.2) mg/dl BUN/Creatinine Ratio 30.3 H (10-20) Glucose 196 H (70-99(Fasting)) mg/dl POC Glucose (70-99) mg/dl Lactate (0.4-2.0) mmol/L Calcium (8.5-10.1) mg/dl Magnesium (1.7-2.4) mg/dl Albumin 3.2 L (3.4-5.0) gm/dl Ur Specific [place] (1.000-1.030) Urine Protein (Negative) Urine Blood (Negative) Ur Leukocyte Esterase (Negative) Urine WBC (Auto) (0-5) /hpf U Epithel Cells (Auto) (0-5) /lpf 10/17/21 10/17/21 10/17/21 Range/Units 14:46 19:15 19:22 WBC (4.8-10.8) K/uL RBC (4.2-5.4) M/uL RDW Std Deviation (36.4-46.3) fL Neut # (Auto) (1.4-6.5) K/uL [place] # (Auto) (0.11-0.59) K/uL Immature Gran # (Auto) (0.00-0.02) K/uL PT (9.0-12.0) Seconds INR (0.9-1.1) Sodium (136-145) mmol/L BUN (6-23) mg/dl Creatinine (0.6-1.2) mg/dl BUN/Creatinine Ratio (10-20) Glucose (70-99(Fasting)) mg/dl POC Glucose 214 H (70-99) mg/dl Lactate 2.1 H* (0.4-2.0) mmol/L Calcium (8.5-10.1) mg/dl Magnesium (1.7-2.4) mg/dl Albumin (3.4-5.0) gm/dl Ur Specific [place] 1.034 H (1.000-1.030) Urine Protein 2+ H (Negative) Urine Blood 2+ H (Negative) Ur Leukocyte Esterase 2+ H (Negative) Urine WBC (Auto) >30 H (0-5) /hpf U Epithel Cells (Auto) 20-30 H (0-5) /lpf 10/17/21 10/18/21 10/18/21 Range/Units 20:16 05:54 05:54 WBC 12.57 H (4.8-10.8) K/uL RBC 3.81 L (4.2-5.4) M/uL RDW Std Deviation 47.8 H (36.4-46.3) fL Neut # (Auto) 9.21 H (1.4-6.5) K/uL [place] # (Auto) 1.09 H (0.11-0.59) K/uL Immature Gran # (Auto) 0.07 H (0.00-0.02) K/uL PT 26.8 H (9.0-12.0) Seconds INR 2.7 H (0.9-1.1) Sodium (136-145) mmol/L BUN (6-23) mg/dl Creatinine (0.6-1.2) mg/dl BUN/Creatinine Ratio (10-20) Glucose (70-99(Fasting)) mg/dl POC Glucose 200 H (70-99) mg/dl Lactate (0.4-2.0) mmol/L Calcium (8.5-10.1) mg/dl Magnesium (1.7-2.4) mg/dl Albumin (3.4-5.0) gm/dl Ur Specific [place] (1.000-1.030) Urine Protein (Negative) Urine Blood (Negative) Ur Leukocyte Esterase (Negative) Urine WBC (Auto) (0-5) /hpf U Epithel Cells (Auto) (0-5) /lpf 10/18/21 10/18/21 10/18/21 Range/Units 05:54 07:48 11:32 WBC (4.8-10.8) K/uL RBC (4.2-5.4) M/uL RDW Std Deviation (36.4-46.3) fL Neut # (Auto) (1.4-6.5) K/uL [place] # (Auto) (0.11-0.59) K/uL Immature Gran # (Auto) (0.00-0.02) K/uL PT (9.0-12.0) Seconds INR (0.9-1.1) Sodium 135 L (136-145) mmol/L BUN 52 H (6-23) mg/dl Creatinine 1.57 H D (0.6-1.2) mg/dl BUN/Creatinine Ratio 33.1 H (10-20) Glucose 170 H (70-99(Fasting)) mg/dl POC Glucose 181 H 330 H* (70-99) mg/dl Lactate (0.4-2.0) mmol/L Calcium 8.2 L (8.5-10.1) mg/dl Magnesium 2.5 H (1.7-2.4) mg/dl Albumin (3.4-5.0) gm/dl Ur Specific [place] (1.000-1.030) Urine Protein (Negative) Urine Blood (Negative) Ur Leukocyte Esterase (Negative) Urine WBC (Auto) (0-5) /hpf U Epithel Cells (Auto) (0-5) /lpf 10/18/21 Range/Units 11:33 WBC (4.8-10.8) K/uL RBC (4.2-5.4) M/uL RDW Std Deviation (36.4-46.3) fL Neut # (Auto) (1.4-6.5) K/uL [place] # (Auto) (0.11-0.59) K/uL Immature Gran # (Auto) (0.00-0.02) K/uL PT (9.0-12.0) Seconds INR (0.9-1.1) Sodium (136-145) mmol/L BUN (6-23) mg/dl Creatinine (0.6-1.2) mg/dl BUN/Creatinine Ratio (10-20) Glucose (70-99(Fasting)) mg/dl POC Glucose 311 H* (70-99) mg/dl Lactate (0.4-2.0) mmol/L Calcium (8.5-10.1) mg/dl Magnesium (1.7-2.4) mg/dl Albumin (3.4-5.0) gm/dl Ur Specific [place] (1.000-1.030) Urine Protein (Negative) Urine Blood (Negative) Ur Leukocyte Esterase (Negative) Urine WBC (Auto) (0-5) /hpf U Epithel Cells (Auto) (0-5) /lpf
--- NOTE | 2021-10-18 15:30 | Pharmacy Report ---
Pharmacy Glycemic Short Note 2 - Date of Service October 18, 2021 - Glycemic Short BSG Results (Last 24 hours): 10/17/21 10/17/21 10/18/21 19:22 20:16 05:54 Glucose 170 H POC Glucose 214 H 200 H 10/18/21 10/18/21 10/18/21 07:48 11:32 11:33 Glucose POC Glucose 181 H 330 H* 311 H* 10/18/21 14:20 Glucose POC Glucose 205 H OUTPATIENT ANTIDIABETIC REGIMEN: * Novolog Mix 49 units Qam, 30 units daily with dinner, Tradjenta ASSESSMENT: * 89 year old admitted with GOOD - pharmacy consulted for glycemic management. * Lunch BSGs elevated in 300s, now trending down to 200s. Plan to tighten CF/CR with dinner. Fasting BSG elevated at 170 mg/dL - patient receive Lantus 8 units last evening * Plan to change to NPH to allow for easier transition to home regimen at discharge. Will give half of dinner home insulin dose this AM due to GOOD * Will reeavaluate NPH in AM PLAN FOR INPATIENT GLYCEMIC CONTROL: * Hold outpatient oral diabetes medications * Basal insulin * NPH 12 units daily with dinner * NPH Qam - will reevaluate tomorrow AM 10/19 * Bolus insulin * NovoLog per scale ACHS or Q6hrs while NPO * Goal Range: Low 120 mg/dL - High 160 mg/dL * Correction Factor: 25 mg/dL/unit * Nutritional / Prandial insulin per carb ratio of 1 unit per 9 grams CHO consumed
[2021-10-18] MEDS ORDERED: WARFARIN SOD 2.5 MG TAB PO SCH (16:00)
[2021-10-18] MEDS ORDERED: INSULIN HUMAN NPH SC SCH (17:00)
[2021-10-18] MEDS: METOPROLOL SUCC 25MG EXT REL TAB PO SCH (20:46)
[2021-10-18] MEDS ORDERED: INSULIN GLARGINE SOLOSTAR 100 UNITS/ML 3 ML PEN SC SCH (21:00)
[2021-10-19] MEDS ORDERED: diphenhydrAMINE Capsule 25 MG CAP PO ONE (02:31)
[2021-10-19 07:38] LABS: Estimated Average Glucose 189 mg/dl; Hemoglobin A1C 8.2 % (4.5-5.6)
[2021-10-19] MEDS ORDERED: INSULIN HUMAN NPH SC ONE (08:00)
[2021-10-19] MEDS: INSULIN ASPART PER UNIT SC SCH ×2 (09:31→12:44)
--- NOTE | 2021-10-19 10:03 | Pharmacy Report ---
Pharmacy Glycemic Short Note 2 - Date of Service October 19, 2021 - Glycemic Short BSG Results (Last 24 hours): 10/18/21 10/18/21 10/18/21 11:32 11:33 14:20 POC Glucose 330 H* 311 H* 205 H 10/18/21 10/18/21 10/19/21 16:37 20:09 07:40 POC Glucose 167 H 177 H 165 H OUTPATIENT ANTIDIABETIC REGIMEN: * Novolog Mix 49 units Qam, 30 units daily with dinner, Tradjenta ASSESSMENT: * BSGs yesterday were [id number] mg/dL. * Patient received 39 units of insulin yesterday with 20 units of basal and 19 units of bolus. Fasting today is 165 mg/dL. * Will start with similar regimen to last admission - NPH 20 units this morning and 15 units qPM. Continue tightened Novolog. BACKGROUND * 89 year old admitted with GOOD - pharmacy consulted for glycemic management. * Lunch BSGs elevated in 300s, now trending down to 200s. Plan to tighten CF/CR with dinner. Fasting BSG elevated at 170 mg/dL - patient receive Lantus 8 units last evening * Plan to change to NPH to allow for easier transition to home regimen at discharge. Will give half of dinner home insulin dose this AM due to GOOD * Will reeavaluate NPH in AM PLAN FOR INPATIENT GLYCEMIC CONTROL: * Hold outpatient oral diabetes medications * Basal insulin * NPH 15 units daily with dinner * NPH 20 units daily with breakfast * Bolus insulin * NovoLog per scale ACHS or Q6hrs while NPO * Goal Range: Low 120 mg/dL - High 160 mg/dL * Correction Factor: 25 mg/dL/unit * Nutritional / Prandial insulin per carb ratio of 1 unit per 9 grams CHO consumed
[2021-10-19 10:27] LABS: INR 1.8 (0.9-1.1); Prothrombin Time 18.3 Seconds (9.0-12.0)
[2021-10-19] MEDS: CEROVITE ADV FORMULA TAB PO SCH (10:51)
[2021-10-19] MEDS: MAGNESIUM CHLORIDE W/CALCIUM 64MG DELAYED REL TAB PO SCH (10:51)
[2021-10-19] MEDS: ASPIRIN 81 MG ECTAB PO SCH (10:52)
[2021-10-19] MEDS: CHOLECALCIFEROL 1,000 UNITS 25 MCG TAB PO SCH (10:52)
[2021-10-19] MEDS: SOTALOL HCL 80 MG TAB PO SCH (10:52)
[2021-10-19] MEDS: ROSUVASTATIN CALCIUM 10 MG TAB PO SCH (10:52)
[2021-10-19] MEDS: ISOSORBIDE MONO EXTENDED REL 60 MG TABCR PO SCH (10:53)
[2021-10-19] MEDS: allopurinoL 100 MG TAB PO SCH (10:53)
[2021-10-19] MEDS: CYANOCOBALAMIN (B-12) 100 MCG TABLET PO SCH (10:53)
[2021-10-19] MEDS: FLUTICASONE PROPIONATE NA SPR 16 GM BTL SCH (10:55)
[2021-10-19] MEDS: PANTOprazole 40 MG TAB PO SCH (10:55)
--- NOTE | 2021-10-19 11:07 | Discharge Summary ---
Date of Service October 19, 2021 Admission HPI Per Admitting Provider Patient is an 89-year-old female with history of insulin-dependent diabetes mellitus, atrial fibrillation on chronic anticoagulation with Coumadin, chronic diastolic heart failure, GERD, dyslipidemia, hypertension, macular degeneration, history of deep vein thrombosis s/p IVC filter, gout, secondary hyperparathyroidism, CKD stage III and other medical problems presents with history of diarrhea associated with generalized weakness. 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 Patient at the time had 4 days of nausea, vomiting which resolved. Patient was unsure if she was on an antibiotic course at the time. She has been on MiraLAX daily to help with constipation. Patient has been having diarrhea since 2 to 3 days duration. Patient had multiple bowel movements per day but denies any blood in stools. She continue to take her MiraLAX despite having multiple bowel movements, last dose of MiraLAX was yesterday. She had significant generalized weakness associated with fatigue and has been using walker for ambulation for the last 2 days. She lives alone. Patient is also on diuretics and losartan for CHF, high blood pressure which she takes daily. Denies any history of chest pain, dyspnea, dizziness, cough, fever, chills, fall, headache, nausea, vomiting, abdominal pain, blood in stools, change in appetite, dysuria, hematuria, recent travel, sick contact. Admission Exam Per Admitting Provider General Appearance:Obese, no apparent distress Head: normocephalic, Atraumatic, +Heating impairment Eyes: normal inspection, EOMI Neck: supple, Trachea midline Respiratory/Chest: Normal breath sounds, CTA, No accessory muscle use Cardiovascular: S1, S2, ? faint murmur Abdomen/GI:Soft, Non tender, Bowel sounds present Extremities/Musculoskeletal:normal inspection, Trace B/L LE edema Neurologic/Psych:AAOX3, grossly no focal neurological deficits Skin: normal color, warm Principal Diagnosis Acute on chronic kidney disease Diarrhea Discharge Exam Constitutional + well hydrated; no acute distress Eyes PERRL, conjunctivae normal, anicteric sclerae ENMT external ear and nose normal, oropharynx normal Respiratory normal respiratory effort, lungs clear to auscultation Cardiovascular Rate/Rhythm: regular rate and regular rhythm S1 S2 Gastrointestinal (Abdomen) normal bowel sounds, soft, nontender, no hepatosplenomegaly Musculoskeletal no cyanosis or clubbing, extremities motor strength 5/5 No pedal edema Chronic stasis changes Skin Erythematous rash on back Neurologic PERRL, EOMI, accommodation nl, no face palsy, no dysarthria Psychiatric A+Ox3, euthymic affect Discharge Data Allergies Allergy/AdvReac Type Severity Reaction Status Date / Time hydrocodone Allergy Unknown . Verified 10/17/21 13:45 Penicillins Allergy Unknown . Verified 10/17/21 13:45 vancomycin AdvReac Intermediate rash on Unverified 10/17/21 13:45 head Consultations 10/17/21 15:44 ED Decision to Admit Stat Ordered Studies 10/17/21 12:35 CT abd pelvis IV con only Stat Lower chest: Cardiomegaly is seen. Bilateral atelectasis is seen. Liver: Unremarkable. No focal lesions are seen. Gallbladder and biliary tree: Patient is status post cholecystectomy. No intra- or extrahepatic biliary ductal dilation. Pancreas: Unremarkable, no focal lesions. Spleen: Unremarkable. Adrenals: Unremarkable. Kidneys and ureters: Previously noted renal cysts are stable. Bladder: Unremarkable. Reproductive organs: Unremarkable. Bowel: Diverticulosis is seen without evidence of diverticulitis. Lymph nodes Retroperitoneal: Unremarkable. Mesenteric: Unremarkable. Pelvic: Unremarkable. Peritoneum: Normal. Vessels: Atherosclerotic calcifications are seen. An IVC filter is seen. Abdominal wall: Unremarkable. Bones: Degenerative changes in the visualized spine. IMPRESSION: No acute abnormalities. Hospital Course (1) GOOD (acute kidney injury): Acute kidney injury on CKD III Review of recent [facility] outpatient, Baseline Cr is 1.3-1.5 Baseline creatinine 1.1 Creatinine 1.98 on presentation Likely prerenal, due to diarrhea and meds (lasix) CT abd and pelvis did not show acute abnormalities Received 2 L of IV fluids while in ED Cr improved to 1.57 Lasix, losartan, magnesium oxide were initially held Losartan resumed today Advised to resume home lasix and magnesium oxide tomorrow Advised to stop miralax Avoid nephrotoxic agents as able Diarrhea Secondary to MiraLAX Resolved Supratherapeutic INR No bleeding issues INR 3.6 on presentation. Warfarin was held initially INR is 1.8 today Was on Warfarin 2.5mg MW and 5mg other days Resume home warfarin. Advised to follow up with anticoagulation clinic Leukocytosis Lactic acidosis Likely secondary to dehydration Lactate was 2.1, improved to 1.4 WBC was 15k on admission. 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 Afib H/O DVT S/P IVC filter Continue metoprolol, sotalol on warfarin Chronic diastolic heart failure Continue home meds and lasix GERD Continue PPI Total Time Total Time Spent Total Time Spent (In Minutes): 45 Total Time Includes: Examination of the Patient, Discharge Planning and Medication Reconciliation Discharge Plan Discharge Items Patient Disposition: Home - Home Health Services Reason For Visit: Diarrhea Discharge Diagnosis: Acute on chronic kidney disease Diarrhea Activity: Resume your previous activity Non-emergency contact: Primary Care Provider and Neurologist Call non-emergency contact if: you have any medication questions and your symptoms worsen Follow-up/Referrals: Noelle Purcell MD [Primary Care Provider] - (Date & Time 10/20/2021 1:40 PM Provider Porsche Urias PA-C Department Family Medicine [facility] ) Diet: Carb Consistent or DM2 and Heart Healthy Ambulatory Orders: Basic Metabolic Panel (Routine) Timeframe: 20211020 Location: Determined by Patient Ordered By: Taisha Ac Attending Provider Instructions: Mrs Maddox You came to the hospital complaining of diarrhea and generalized weakness. You were evaluated and noted to have acute kidney injury due to the diarrhea. Diarrhea was due to stool softeners you took. Your diarrhea resolved. Your lasix was held briefly. You can resume your home lasix tomorrow Please do the blood test called Basic metabolic Panel and follow up result with your Primary Doctor. Please ensure follow up with the Anticoagulation clinic for management of your warfarin. You can use benadryl cream as needed for the itchy rash on your back. Please ensure follow up with your Primary Doctor and Chemical Processing Supervisor Please take medication as prescribed. It was a pleasure taking care of you. Pending Studies at Discharge: No Stand-Alone Forms: My [employer], Smoking Cessation Medications and DC Order Prescriptions: New Benadryl 2 % gel 1 applic topical TID PRN (Reason: itching) Qty: 103 RF: 0 Continued allopurinol 100 mg Tablet 100 mg PO AMHS RF: 0 lansoprazole [Prevacid] 30 mg Capsule,Delayed Release(Dr/Ec) 30 mg PO QAM RF: 0 insulin asp prt-insulin aspart [Novolog Mix 70-30FlexPen U-100] 100 unit/mL (70-30) Insulin Pen 49 unit SUBCUT QDB RF: 0 rosuvastatin 10 mg Tablet 10 mg PO QAM RF: 0 insulin asp prt-insulin aspart [Novolog Mix 70-30FlexPen U-100] 100 unit/mL (70-30) Insulin Pen 30 unit SUBCUT QDD RF: 0 PreserVision AREDS-2 [id number] Capsule 1 tab PO QAM RF: 0 losartan 50 mg Tablet 50 mg PO QAM RF: 0 Tradjenta 5 mg Tablet 5 mg PO QAM RF: 0 magnesium oxide 400 mg (241.3 mg magnesium) tablet 400 mg PO QAM RF: 0 metoprolol succinate 25 mg tablet extended release 24 hr 25 mg PO QPM RF: 0 meclizine 12.5 mg Tablet 12.5 mg PO TID PRN (Reason: dizziness) Qty: 20 RF: 1 aspirin 81 mg Tablet,Delayed Release (Dr/Ec) 81 mg PO QAM RF: 0 furosemide 40 mg Tablet 40 mg PO SUTUTHSA RF: 0 isosorbide mononitrate 60 mg Tablet Extended Release 24 Hr 60 mg PO QAM RF: 0 sotalol 80 mg Tablet 80 mg PO AMHS RF: 0 cyanocobalamin (vitamin B-12) [Vitamin B-12] 100 mcg Tablet 100 mcg PO QAM RF: 0 furosemide 40 mg tablet 80 mg PO MOWEFR RF: 0 warfarin 5 mg tablet 2.5 mg PO 3XWK RF: 0 warfarin 5 mg tablet 5 mg PO 4XWK RF: 0 cholecalciferol (vitamin D3) [Vitamin D3] 50 mcg (2,000 unit) Tablet 100 mcg PO DAILY RF: 0 ondansetron HCl 4 mg tablet 4 mg PO Q8H PRN (Reason: nausea vomiting) RF: 0 prednisone 20 mg tablet 20 mg PO UD RF: 0 acetaminophen 500 mg Tablet 500 mg PO Q8H PRN (Reason: Pain) RF: 0 fluticasone propionate 50 mcg/actuation spray,suspension 2 spray INTRANASAL DAILY RF: 0 Discharge Orders: Discharge Order (Routine); Ordered 10/19/21 Ordered By: Taisha Freedman Admission Data Admit Date/Time: 10/18/21 16:15 Attending Provider: Taisha Freedman I. Admit Provider: Andrez Rosenberg Primary Care Provider: Noelle Purcell Other Providers: Andrez Rosenberg Other Interventions: Discharge Summary Assessment (RN) Last Done: 10/19/21 11:33
[2021-10-19] MEDS ORDERED: LOSARTAN POTASSIUM 50 MG TAB PO SCH (11:15)
[2021-10-19] MEDS ORDERED: INSULIN HUMAN NPH SC SCH (17:00)
[2021-10-20] MEDS ORDERED: INSULIN HUMAN NPH SC SCH (07:30)
== END 2021-10-19 13:04 | disposition home health service (06) | DRG 683 ==
LOC: 2N 12:07 → ED 12:07 → SUATTDRO 16:29 → 2N 17:49
DX: Z88.5 Allergy status to narcotic agent; N18.30 Chronic kidney disease, stage 3 unspecified; Z88.1 Allergy status to other antibiotic agents; Z85.3 Personal history of malignant neoplasm of breast; Z88.0 Allergy status to penicillin; I48.0 Paroxysmal atrial fibrillation; E86.0 Dehydration; Z79.82 Long term (current) use of aspirin; I50.22 Chronic systolic (congestive) heart failure; Z79.52 Long term (current) use of systemic steroids; K21.9 Gastro-esophageal reflux disease without esophagitis; I13.0 Hypertensive heart and chronic kidney disease with heart failure and stage 1 through stage 4 chronic kidney disease, or unspecified chronic kidney disease; N17.9 Acute kidney failure, unspecified; Z79.4 Long term (current) use of insulin; Z90.12 Acquired absence of left breast and nipple; Z95.828 Presence of other vascular implants and grafts; Z85.828 Personal history of other malignant neoplasm of skin; E11.22 Type 2 diabetes mellitus with diabetic chronic kidney disease; M10.9 Gout, unspecified; Z79.01 Long term (current) use of anticoagulants; Z86.718 Personal history of other venous thrombosis and embolism; E21.1 Secondary hyperparathyroidism, not elsewhere classified